=== PATIENT | female | born 1970 | race Caucasian/White ===

== ENCOUNTER 2017-09-02 20:44 | Emergency (ER) | payer MEDICAID, SELFPAY ==
[2017-09-02 20:46] VITALS: BP 168/92; PULSE 87; RESP 16; TEMP 36.8; O2SAT 97; BMI 62.6
--- NOTE | 2017-09-02 21:52 | ED.VISSUMM ---
- ER Visit Summary Date of Service: 09/02/17 Chief Complaint: Right-sided jaw pain History of Present Illness: The patient is a 47 F presents with right-sided jaw pain. Patient states she has had cold symptoms for the past 3-4 weeks. She states today she woke up and had a tender swelling in her right mid jaw. She denies fever. Denies ear pain. Denies sore throat or trouble swallowing. She went to urgent care and they sent her to the ED for further evaluation. Physical Examination: Vitals are stable. Patient is afebrile. Alert no acute distress. HEENT exam tender mobile lesion right mid jaw with no fluctuance, no surrounding erythema, TM is normal, no mastoid tenderness. Pharynx is normal, uvula is midline. Neck is supple. Lungs are clear and equal bilaterally. Heart is regular rate and rhythm. Extremities are unremarkable. Skin is warm and dry. Remainder of exam is unremarkable. Emergency Department Course and Treatment: Due to possibility of early abscess that is not amenable to drainage at this time, she is given a prescription for clindamycin. She is advised to follow-up with Dr. Cintron her primary care physician. Advised to watch for worsening signs of infection and return to ED if worsening complaints. Disposition: Discharge home Impression: Right jaw pain, URI This note was generated with [employer] dictation software. It may contain incorrect words, spelling, and punctuation that were not noted in review of the chart prior to signing ED Disposition - Plan for ED Patient: Chief Complaint: Dental Referrals: Xochitl Cintron MD [Primary Care Provider] -
--- NOTE | 2017-09-02 21:59 | DCINST.ED_ITS ---
ED Disposition - Plan for ED Patient: Chief Complaint: Dental Instructions: ED Abscess Abx Tx Only Ch Prescriptions: Guaifenesin/Pseudoephedrne HCl [Mucinex D ER 1,200-120 mg Tab] 1 each PO BID # 14 tab.er.12h Clindamycin [Cleocin] 300 mg PO 4X/DAY #80 capsule Referrals: Xochitl Cintron MD [Primary Care Provider] -
[2017-09-02] MEDS: Clindamycin HCl 150 MG Capsule 300 MG PO (22:00)
== END 2017-09-02 22:24 | disposition home or self-care (01) ==
LOC: ED 22:08
PROVIDERS: Emergency Provider Emergency Medicine; Family Provider Internal Medicine; PCP Internal Medicine
DX: R68.84 Jaw pain (principal); J06.9 Acute upper respiratory infection, unspecified
CPT/HCPCS: 99283

== ENCOUNTER 2018-09-28 19:39 | Emergency (ER) | payer MEDICAID, SELFPAY ==
[2018-09-28 19:40] VITALS: BP 170/84; PULSE 74; RESP 18; TEMP 36.6; O2SAT 99; BMI 62.7
--- NOTE | 2018-09-28 20:23 | ED.VISSUMM ---
- ER Visit Summary Date of Service: 09/28/18 Chief Complaint: Right earache History of Present Illness: The patient is a 48 F past medical history of migraines. States last 2 days she has had right earache. Denies any trauma. No fever. No sore throat. No change in her hearing. No trauma. Physical Examination: Well-appearing middle-aged morbidly obese female. Vital signs are stable and afebrile. HEENT exam unremarkable. TMs are normal bilaterally. No erythema. No swelling of the ear canals or fluid in the canal or wax. No perforation. No blood. Posterior pharynx normal. Eustachian tubes are nontender. Neck nontender no lymphadenopathy. Lungs clear to auscultation bilaterally. Heart regular rate and rhythm no murmur. Abdomen soft and nontender. Otherwise exam unremarkable. Test Results: None Emergency Department Course and Treatment: Motrin for pain. Currently there is no signs of infection. Treatment Plan: Motrin. Follow-up if not improving. Disposition: Discharge Impression: Right earache of uncertain etiology This note was generated with [employer] dictation software. It may contain incorrect words, spelling, and punctuation that were not noted in review of the chart prior to signing ED Disposition - Plan for ED Patient: Referrals: Xochitl Cintron MD [Primary Care Provider] -
--- NOTE | 2018-09-28 20:25 | ED.DEP ---
ED Disposition - Plan for ED Patient: Disposition: Home or Assisted Living Prescriptions: Ibuprofen [Motrin] 600 mg PO Q6H PRN PRN #20 tab PRN Reason: Pain Referrals: Xochitl Cintron MD [Primary Care Provider] - 1 Week if not improving Additional Instructions: Motrin for pain. Your right ear shows no signs of infection should improve the next several days.
[2018-09-28 20:46] VITALS: BP 160/75; PULSE 70; RESP 18; O2SAT 96
== END 2018-09-28 20:46 | disposition home or self-care (01) ==
LOC: ED 20:41
PROVIDERS: Emergency Provider Emergency Medicine; Family Provider Internal Medicine; PCP Internal Medicine
DX: H92.01 Otalgia, right ear (principal)
CPT/HCPCS: 99282

== ENCOUNTER 2018-10-28 20:04 | Emergency (ER) | payer MEDICAID, SELFPAY ==
[2018-10-28 20:04] VITALS: BP 150/98; PULSE 81; RESP 16; TEMP 36.8; O2SAT 98; BMI 62.2
[2018-10-28 21:29] VITALS: PULSE 70; RESP 15; O2SAT 99
[2018-10-28 21:39] VITALS: O2SAT 97
[2018-10-28] MEDS: 0.9% Normal Saline 1,000 ML 50 ML IV (21:51)
[2018-10-28] MEDS: 0.9% Normal Saline 1,000 ML 999 ML IV (22:30)
[2018-10-28] MEDS: DiphenhydrAMINE 50 MG/ML Syringe 25 MG IV (22:30)
[2018-10-28] MEDS: proMETHazine 25 MG/ML Syringe 6.25 MG IV (22:30)
[2018-10-28] MEDS: Ketorolac 30 MG/ML Syringe IV (22:31)
--- NOTE | 2018-10-28 23:17 | ED.VISSUMM ---
- ER Visit Summary Date of Service: 10/28/18 Chief Complaint: Migraine headache History of Present Illness: The patient is a 48 F who presents with migraine headache that began today. Patient states the pain began this morning when she woke up. Patient states the pain is worse over the occipital area. Patient states her pain is worse with light. Patient states this feels similar to prior migraine headaches. Patient admits to some nausea and vomiting. Patient also admits to some photophobia. Patient states she took Maxalt at home with minimal relief. Patient states she normally takes Phenergan and Benadryl at home but she did not have any of this tonight. Physical Examination: Vital signs are stable. Patient is afebrile. Patient is in no acute distress. Oral mucosa is pink and moist. Neck is supple. Trachea is midline. There is no JVD noted. Heart was regular rate and rhythm. Lungs are clear and equal bilateral. Abdomen is soft. Bowel sounds are normal. There is no tenderness. There is no guarding noted. Skin is warm dry. Cranial nerves II through XII are intact. There are no focal motor or sensory deficits noted. The remaining physical exam is within normal limits. Emergency Department Course and Treatment: Patient was given IV fluids, Phenergan, Toradol, and Benadryl. Patient felt better on reevaluation. Patient was instructed to rest in a dark quiet room. Patient was instructed to follow-up with her primary care physician in 5 to 7 days. Patient understood and was agreeable with the plan. All questions were answered. Disposition: Discharge home Impression: Migraine headache This note was generated with [employer] dictation software. It may contain incorrect words, spelling, and punctuation that were not noted in review of the chart prior to signing ED Disposition - Plan for ED Patient: Disposition: Home or Assisted Living Diagnosis: Migraine headache Instructions: ED Headache Migraine Referrals: Xochitl Cintron MD [Primary Care Provider] - 5-7 Days
--- NOTE | 2018-10-28 23:21 | ED.DCSUM_ITS ---
- ER Visit Summary Date of Service: 10/28/18 Chief Complaint: Migraine headache History of Present Illness: The patient is a 48 F who presents with migraine headache that began today. Patient states the pain began this morning when she woke up. Patient states the pain is worse over the occipital area. Patient states her pain is worse with light. Patient states this feels similar to prior migraine headaches. Patient admits to some nausea and vomiting. Patient also admits to some photophobia. Patient states she took Maxalt at home with minimal relief. Patient states she normally takes Phenergan and Benadryl at home but she did not have any of this tonight. Physical Examination: Vital signs are stable. Patient is afebrile. Patient is in no acute distress. Oral mucosa is pink and moist. Neck is supple. Trachea is midline. There is no JVD noted. Heart was regular rate and rhythm. Lungs are clear and equal bilateral. Abdomen is soft. Bowel sounds are normal. There is no tenderness. There is no guarding noted. Skin is warm dry. Cranial nerves II through XII are intact. There are no focal motor or sensory deficits noted. The remaining physical exam is within normal limits. Emergency Department Course and Treatment: Patient was given IV fluids, Phenergan, Toradol, and Benadryl. Patient felt better on reevaluation. Patient was instructed to rest in a dark quiet room. Patient was instructed to follow- up with her primary care physician in 5 to 7 days. Patient understood and was agreeable with the plan. All questions were answered. Disposition: Discharge home Impression: Migraine headache This note was generated with [employer] dictation software. It may contain incorrect words, spelling, and punctuation that were not noted in review of the chart prior to signing ED Disposition - Plan for ED Patient: Disposition: Home or Assisted Living Diagnosis: Migraine headache Instructions: ED Headache Migraine Referrals: Xochitl Cintron MD [Primary Care Provider] - 5-7 Days
== END 2018-10-28 23:33 | disposition home or self-care (01) ==
PROVIDERS: Emergency Provider Emergency Medicine; Family Provider Internal Medicine; PCP Internal Medicine
DX: G43.909 Migraine, unspecified, not intractable, without status migrainosus (principal)
CPT/HCPCS: 96361; 96374; 96375; 99284; J7030; A4216

== ENCOUNTER 2020-02-28 20:59 | Emergency (ER) | payer MEDICAID, SELFPAY ==
[2020-02-28 20:59] VITALS: BP 176/105; PULSE 76; RESP 20; TEMP 36.2; O2SAT 98; BMI 61.8; BMI 62.2
[2020-02-28] MEDS: proMETHazine 25 MG/ML Syringe 12.5 MG IV (21:26)
--- NOTE | 2020-02-28 21:32 | ED.VIS.GEN ---
History of Present Illness Chief Complaint: Headache Informant: Patient Onset: Today Narrative: Patient presents with migraine symptoms. Having oral photophobia nausea vomiting x1. Took her Maxalt with no relief. She did report trunk of car hitting her head at 3:30 PM today, however did not elicit any symptoms at that time. She states she thinks is aggravating her migraines and this is her same typical migraines. No fevers. No neck pain. No back pain. Allergic to Reglan, however states tolerated Phenergan and Compazine in the past and states Phenergan has usually helped her. No other complaints. Prior similar symptoms: Yes Past Medical History - Allergies and Home Meds Allergies/Adverse Reactions: Allergies metoclopramide HCl [From Reglan] Adverse Reaction (Verified 02/28/20 21:41) Other sertraline HCl [From Zoloft] Adverse Reaction (Verified 02/28/20 21:41) Other Primary Care Physician: Xochitl Cintron MD [Primary Care Provider] - Past Medical History: - - Migraine headaches Smoking Status: Never smoker Review of Systems General: Denies: Chills, Fever, Sweats Eyes: Denies: Visual changes - bilaterally, Diplopia ENT: Denies: Rhinorrhea, Sore throat Cardiovascular: Denies: Chest pain, Palpitations Respiratory: Denies: Dyspnea, Cough, Dyspnea on exertion Gastrointestinal: Denies: Abdominal pain, Nausea, Vomiting, Diarrhea, Melena, Hematochezia Genitourinary: Denies: Dysuria, Hematuria, Frequency Musculoskeletal: Denies: Back pain, Extremity Pain Skin: Denies: Rash, Wounds Neurological: Reports: Headache. Denies: Weakness, Numbness Physical Exam Vital Signs/Narrative: Vital Signs Temp Pulse Resp BP Pulse Ox 02/28/20 20:59 97.1 F L 76 20 H 176/105 H 98 Inital Vital Signs reviewed: Yes General: Well nourished, Well developed, No Acute Distress Head: Normocephalic, Atraumatic Eyes: Perrl, EOMI ENT: Moist mucous membranes, No rhinorrhea, TM's clear, - - No hemotympanum Neck: Supple, Nontender, - - No meningismus Cardiovascular: Regular rate, Regular rhythm, No murmurs Respiratory: No distress, CTA bilaterally, Chest nontender Abdomen: Soft, Nontender, Nondistended, Normal bowel sounds Back: Nontender, Normal Inspection Extremities: Nontender, No edema Skin: Normal color, No rash Neurological: Alert, Oriented x3, Cranial nerves II-XII grossly intact, Normal Strength, Normal Sensation Psychological: Normal affect, Normal Mood Diagnostic/Tx/Re-eval - Medical Decision Making Patient nontoxic, no meningismus. No focal neurological deficits. She did have a head injury, however she states this is likely the same of her migraines. Treated with fluids and Phenergan with improvement of symptoms. She will monitor symptoms and follow-up as an outpatient. ED Disposition - Plan for ED Patient: Disposition: Home or Assisted Living Diagnosis: Migraine headache Instructions: ED, Migraine (Classical) Referrals: Xochitl Cintron MD [Primary Care Provider] - 3-5 Days
[2020-02-28 22:30] VITALS: BP 145/71; PULSE 74; RESP 17; O2SAT 95
== END 2020-02-28 22:30 | disposition home or self-care (01) ==
PROVIDERS: Emergency Provider Emergency Medicine; PCP Internal Medicine
DX: G43.909 Migraine, unspecified, not intractable, without status migrainosus (principal)
CPT/HCPCS: 96374; 99283; J7030; A4216

== ENCOUNTER 2021-04-28 14:12 | Emergency (ER) | payer MEDICAID, SELFPAY ==
[2021-04-28 14:13] VITALS: BP 148/90; PULSE 75; RESP 17; TEMP 35.7; O2SAT 96; BMI 57.5
[2021-04-28 14:15] VITALS: BP 148/90; PULSE 75; RESP 17; TEMP 35.7; O2SAT 96
--- NOTE | 2021-04-28 14:16 | RAD_ITS ---
STUDY: X-RAY CHEST REASON FOR EXAM: Female, 50 years old. SOB . 10 day history of nausea and weakness. TECHNIQUE: Single AP portable view of the chest. COMPARISON: Comparison is made with prior study dated 12/03/2015. FINDINGS: Scattered calcified granulomas. No acute abnormality is seen. There is no demonstrated pleural abnormality. Normal size heart. Normal mediastinum and suma. Normal visualized pulmonary arteries. Normal visualized aortic arch and descending thoracic aorta. There are diffuse degenerative changes of the visualized thoracic spine. Normal visualized ribs, clavicles, and shoulders. There is no demonstrated abnormality of the visualized soft tissue structures of the upper abdomen. RAD/Chest 1 View IMPRESSION: No acute abnormality is seen. Electronically Signed: Davis Randolph MD at 14:44 EST , Service support ,
--- NOTE | 2021-04-28 15:41 | ED.VIS.DYS ---
HPI History of Present Illness Chief Complaint: Cough Informant: patient Narrative Narrative: Patient presents with about 9 days of cough. She states she gets wheezing but mostly in the morning. She has albuterol and a nebulizer at home but does not have the tubing for it. She did just get a prescription for albuterol inhaler from her physician. However they are waiting on insurance approval. Patient had an episode of nausea and vomiting here although that is better. She is not bringing up any sputum. She is not having chest pain. She has no hemoptysis. She feels like this is a viral illness and was mostly concerned about Covid. Nothing specifically makes it better or worse. Denies chronic medical conditions other than obesity and arthritis No routine chronic medications Allergy to Reglan and Zoloft No recent surgeries Non-smoker lives independently PFSH PFSH Home Medications ibuprofen 600 mg PO Q6H PRN PRN #20 tab 09/28/18 [Rx Last Taken Unknown] rizatriptan 10 mg PO X1 PRN 10/28/18 [History Last Taken 10/28/18] ondansetron 4 mg PO Q8H PRN #10 tab 04/28/21 [Rx Last Taken Unknown] Allergy/AdvReac Type Severity Reaction Status Date / Time metoclopramide HCl AdvReac Other Verified 02/28/20 21:41 [From Reglan] sertraline HCl [From Zoloft] AdvReac Other Verified 02/28/20 21:41 Social History Smoking Status: Never smoker ROS ROS ED Constitutional Constitutional ED: Denies chills, fever(s) or sweats Eyes Eyes: Denies blurry vision ENT ENT ED: Reports rhinorrhea; Denies sore throat Cardiovascular Cardiovascular: Denies chest pain or palpitations Respiratory/Chest Respiratory/Chest: Reports cough and other Details: See history of present illness. ; Denies dyspnea or sputum Gastrointestinal Gastrointestinal: Reports nausea, vomiting and other Details: Vomiting occurred for the first time here. ; Denies abdominal pain or diarrhea Genitourinary Genitourinary ED: Denies dysuria Musculoskeletal Musculoskeletal: Denies myalgias Integumentary Denies rash Neurologic Neurologic: Denies headache(s) or weakness Endocrine Endocrinology: Denies polydipsia or polyuria Hematologic/Lymphatic Hematologic/Lymphatic: Denies easy bleeding or easy bruising Allergic/Immunologic Allergic/Immunologic ED: Denies mouth swelling or urticaria EXAM Physical Exam Const Vital Signs: 04/28/21 14:13 04/28/21 14:15 Temperature 96.2 F L 96.2 F L Temperature Source Temporal Temporal Pulse Rate 75 75 Respiratory Rate 17 17 Blood Pressure 148/90 H 148/90 H Blood Pressure Mean 109 109 Pulse Ox 96 96 Oxygen Delivery Method Room Air Room Air Positive well nourished, well developed and obese General Appearance ED: well developed and NAD; Negative for pallor Nutritional Appearance: obese HEENT Reports moist mucous membranes HEENT Narrative: No uvular or tonsillar swelling. Voice is normal. Handle secretions normally. Eyes General Eye ED: Negative for pale conjunctiva or scleral icterus Neck no meningeal signs and no JVD Resp normal respiratory effort and clear to auscultation bilaterally Resp Narrative: At this time she has no wheeze. However she states she is also not wheezing now. She does have a little upper airway sounds. This is not stridor but is a little coarse. Auscultation: Negative for rales, rhonchi or wheezes Cardio regular rate and regular rhythm GI non-tender Palpation: soft Back/Spine normal to inspection Extremity General Extremety ED: Negative for tenderness Neuro Sensorium / Orientation: alert Psych mental status grossly normal Skin General Skin Exam: Negative for jaundice or pallor Lesions: no lesions Rashes: no rashes MDM MDM MDM Narrative Medical decision making narrative: Patient has about 9-day of URI symptoms. She had one episode of vomiting here. We will write her for something for nausea and vomiting. Evidently this is not an uncommon symptom for her. We will see if we can get her tubing for her nebulizer at home. I will give her a single time dose of Decadron here. Her x-ray shows no acute process. Her hernandez is negative. We discussed reasons that would prompt return. Radiography Diagnostic Testing: Clinical Impression(s) from Imaging Studies Chest X-Ray 04/28/21 14:16 IMPRESSION: No acute abnormality is seen. Electronically Signed: Davis Randolph MD at 14:44 EST , Service support , ADDENDUM: 04/28/21 1457 IMPRESSION: No acute abnormality is seen. Electronically Signed: Davis Randolph MD at 14:44 EST , Service support , Discharge Plan Triage Chief Complaint: Cough ED Provider: Don Felix Dx/Rx/DC Orders Clinical Impression: Viral URI, Nausea & vomiting Instructions: ED URI, Viral W/ Wheezing (Adult) Prescriptions: New ondansetron 4 mg tablet,disintegrating 4 mg PO Q8H PRN (Reason: nausea and vomiting) Qty: 10 RF: 0 No Action ibuprofen 600 MG tablet 600 mg PO Q6H PRN PRN (Reason: Pain) Qty: 20 RF: 0 rizatriptan 10 MG tablet,disintegrating 10 mg PO X1 PRN (Reason: Headache) RF: 0 Primary Care Provider: Xochitl Cintron Referrals: Xochitl Cintron MD [Primary Care Provider] - 3-5 Days if not improving Disposition Disposition: Home, Self Care
[2021-04-28 15:49] VITALS: BP 154/87; PULSE 65; RESP 16; TEMP 37; O2SAT 93
[2021-04-28 15:51] VITALS: O2SAT 95
[2021-04-28] MEDS: dexAMETHasone 4 MG Tablet 10 MG PO (15:53)
[2021-04-28] MEDS: Ondansetron ODT 4 MG Tablet PO (15:53)
== END 2021-04-28 16:03 | disposition home or self-care (01) ==
PROVIDERS: Emergency Provider Emergency Medicine; PCP Internal Medicine
DX: J06.9 Acute upper respiratory infection, unspecified (principal); R11.2 Nausea with vomiting, unspecified; E66.9 Obesity, unspecified
CPT/HCPCS: 71045; 87426; 99283

== ENCOUNTER → 2022-01-27 | Outpatient (CLI) | payer MEDICAID, SELFPAY ==
[2022-01-27 18:15] LABS: Red Blood Cells-Urine 0 SEEN /hpf (0-5)
[2022-01-27 18:26] LABS: Color, Urine Yellow (Yellow); Glucose, Dipstick Normal (Normal); Ketone-Dipstick Negative (Negative); Leukocyte Esterase-Dipstick 500 /ul (Negative); Nitrite-Dipstick Negative (Negative); Occult Blood-Urine Negative /ul (Negative); Protein-Dipstick 30 mg/dl (Negative); Urine Clarity Clear (Clear); Urine Urobilinogen 1 mg/dl (Normal)
[2022-01-27 18:27] LABS: Urine Bilirubin Dipstick 1 mg/dL (Negative)
[2022-01-27 18:36] LABS: Bacteria 3+ /hpf (None Seen); Mucous, Urine 3+ /hpf (<or=2+); Squamous Epithelial Cells - UA 10-25 SEEN /hpf (5-10); White Blood Cells 10-25 SEEN /hpf (0-5)
[2022-01-27 18:37] LABS: Hyaline Cast 5-10 SEEN /lpf (0-5)
== END | disposition home or self-care (01) ==
PROVIDERS: PCP Internal Medicine; Visit Provider Physician Assistant Surgical
DX: R35.0 Frequency of micturition (principal)
CPT/HCPCS: 81001; 87086; 87088

== ENCOUNTER 2022-05-10 07:54 | Emergency (ER) | payer MEDICAID, SELFPAY ==
[2022-05-10 07:56] VITALS: BP 183/90; PULSE 73; RESP 16; TEMP 36.1; O2SAT 95; BMI 63.2
--- NOTE | 2022-05-10 08:08 | EDS_ITS ---
HPI History of Present Illness Chief Complaint: Headache Informant: patient Onset/Context/Timing Onset: Yesterday Context: Gradual Onset Timing: Continuous Quality: Sharp Location: Behind her eyes Worsened by: Certain movements Relieved by: Nothing Narrative Narrative: Patient presents with headache, nausea, and vomiting that became worse yesterday. Patient states that it got worse throughout the night. Patient states her pain is sharp. Patient states it is behind her eyes. Patient also noted some wheezing in her chest. Patient states her headache is worse with certain movements. Patient states nothing makes her headache any better. Patient admits to nausea and vomiting but denies any hematemesis or coffee- ground emesis. Patient also admits to a cough and shortness of breath. Patient states she was recently seen at an urgent care and was negative for COVID and influenza. [facility] Medical History Migraines Home Medications NK 05/10/22 [History Last Taken Unknown] Allergy/AdvReac Type Severity Reaction Status Date / Time metoclopramide HCl AdvReac Other Verified 05/10/22 07:55 [From Reglan] sertraline HCl [From Zoloft] AdvReac Other Verified 05/10/22 07:55 Social History Smoking Status: Never smoker ROS ROS ED Constitutional Constitutional ED: Denies chills or fever(s) Eyes Eyes: Denies blurry vision or change in vision ENT ENT ED: Denies rhinorrhea or sore throat Cardiovascular Cardiovascular: Denies chest pain or palpitations Respiratory/Chest Respiratory/Chest: Reports cough and dyspnea Gastrointestinal Gastrointestinal: Reports nausea and vomiting Genitourinary Genitourinary ED: Denies dysuria or hematuria Musculoskeletal Musculoskeletal: Reports neck pain; Denies back pain Integumentary Denies abscess or rash Neurologic Neurologic: Reports headache(s); Denies weakness Allergic/Immunologic Allergic/Immunologic ED: Denies mouth swelling or urticaria EXAM Physical Exam Const Vital Signs: 05/10/22 07:56 05/10/22 08:05 05/10/22 08:30 Temperature 96.9 F L Temperature Source Temporal Pulse Rate 73 71 Respiratory Rate 16 16 Respiratory Effort Normal Non-Labored Respiratory Pattern Normal Normal Blood Pressure 183/90 H Blood Pressure Mean 121 Pulse Ox 95 Oxygen Delivery Method Room Air Positive well nourished, well developed and obese General Appearance ED: well developed and NAD Nutritional Appearance: obese HEENT Reports moist mucous membranes normocephalic and atraumatic Eyes PERRL and EOMs intact bilaterally Neck supple and no JVD Resp normal respiratory effort Effort and Inspection: Negative for respiratory distress Auscultation: diminished lung sounds diffuse Cardio regular rate, regular rhythm and no murmurs GI normal to inspection, nondistended, normoactive bowel sounds, soft to palpation, non-tender and non-distended Extremity normal to inspection General Extremety ED: Negative for edema or tenderness General Extremity: Negative for edema Neuro oriented x3, CN's II-XII intact bilaterally and no sensory deficits noted Sensorium / Orientation: awake and alert Motor Exam: strength 5/5 throughout Psych mental status grossly normal MDM MDM MDM Narrative Medical decision making narrative: Patient was given a DuoNeb aerosol here. Patient was given IV fluids, Phenerg an, and Toradol. CBC was within normal limits. Comprehensive metabolic profile was essentially within normal limits. PA and lateral chest x-ray was obtained. There are 2 views. On my interpretation, lung landaverde are clear. There is normal cardiac silhouette. Bony thorax is normal. There is no acute process noted. Radiologist also interpreted the x-ray and agrees. Patient is feeling better on reevaluation. Patient was instructed to rest in a dark quiet room. Patient was instructed to drink plenty of fluids. Patient was instructed to follow-up with her primary care physician in 5 to 7 days. Patient understood and was agreeable with the plan. All questions were answered. Lab Data Attestation: I reviewed the patient's lab results. Labs: Laboratory Results - last 24 hr 05/10/22 05/10/22 08:10 08:10 WBC 9.9 RBC 4.74 Hgb 13.1 Hct 40.7 MCV 85.9 MCH 27.6 MCHC 32.2 RDW Std Deviation 39.4 RDW Coeff of Brad 12.6 Plt Count 307 MPV 10.5 Immature Gran % (Auto) 0.500 Neut % (Auto) 62.0 Lymph % (Auto) 30.1 [place]orne % (Auto) 6.0 Eos % (Auto) 1.0 Baso % (Auto) 0.4 Absolute Neuts (auto) 6.1 Absolute Lymphs (auto) 2.98 Nucleated RBC % 0 Sodium 140 Potassium 3.4 L Chloride 108 H Carbon Dioxide 26.0 Anion Gap 6 BUN 10 Creatinine 0.75 Estim Creat Clear Calc 194.43 Est GFR (MDRD) Af Amer 104 Est GFR (MDRD) Non-Af 86 BUN/Creatinine Ratio 13.4 Glucose 157 H Calcium 9.0 Total Bilirubin 1.30 H AST 31 ALT 45 Alkaline Phosphatase 80 Total Protein 7.4 Albumin 3.1 L Globulin 4.3 H Albumin/Globulin Ratio 0.7 L Radiography Chest X-Ray - ED: 2 View, Read by ED Physician, Read by Radiologist, Normal and No Acute Disease Diagnostic Testing: Clinical Impression(s) from Imaging Studies Chest X-Ray 05/10/22 08:45 IMPRESSION: No acute findings in the chest and no significant interval change when compared to 04/28/2021. Electronically Signed: Abdoulaye Gilliland MD at 9:02 EST Reading Location ID and State: [address] [place] [address] , Service support , Discharge Plan Triage Chief Complaint: Headache ED Provider: Lasha Duran Dx/Rx/DC Orders Clinical Impression: Viral illness, Morbid obesity with BMI of 60.0-69.9, adult Instructions: ED Viral Syndrome (Adult) Prescriptions: No Action NK Primary Care Provider: Xochitl Cintron Referrals: Xochitl Cintron MD [Primary Care Provider] - 3-5 Days Disposition Disposition: Home, Self Care
[2022-05-10] MEDS: Ipratropium/Albuterol Sulfate 3 ML AMPUL.NEB INHALATION (08:17)
[2022-05-10] MEDS: Ketorolac 30 MG/ML Syringe IV (08:23)
[2022-05-10] MEDS: 0.9% Normal Saline 1,000 ML 1000 ML IV (08:23)
[2022-05-10] MEDS: proMETHazine 25 MG/ML Syringe 6.25 MG IM (08:23)
[2022-05-10 08:30] VITALS: PULSE 71; RESP 16
[2022-05-10 08:32] LABS: Absolute Lymphocyte Count 2.98 X10^3/uL (0.83-4.51); Absolute Neutrophil Count 6.1 X10^3/uL (2.0-7.7); Basophil# 0.04 X10^3/uL; Basophil% 0.4 % (0-1); Hematocrit 40.7 % (37-47); Hemoglobin 13.1 g/dL (12.0-15.0); Lymphocyte # 2.98 X10^3/ul (0.83-4.51); Lymphocyte % 30.1 % (19-41); Mean Corp Hgb Conc 32.2 g/dL (32-36); Mean Corpuscular Hgb 27.6 pg (27.0-32.0); Mean Corpuscular Volume 85.9 fL (81-99); Mean Platelet Vol. 10.5 fl (6.2-12.0); Monocyte# 0.59 X10^3/uL; NRBC Flagged by Analyzer 0 % (0-5); Neutrophil # 6.14 X10^3/uL (2.7-7.7); Platelet Count 307 K/mm3 (150-450); RBC Distribution Width CV 12.6 % (11.6-14.6); RBC Distribution Width SD 39.4 fl (35.1-43.9); Red Blood Count 4.74 M/mm3 (4.2-5.4); White Blood Count 9.9 K/mm3 (4.4-11.0)
--- NOTE | 2022-05-10 08:45 | RAD_ITS ---
EXAM: XR CHEST, 2 VIEWS CLINICAL INDICATION: Cough TECHNIQUE: Frontal and lateral views of the chest. This report was created using [employer] report generation technology. COMPARISON: 04/28/2021. FINDINGS: LUNGS AND PLEURAL SPACES: Unremarkable. No consolidation or edema. No pneumothorax. No effusion. HEART: Mild cardiomegaly. MEDIASTINUM: Central airways and mediastinal contour are unremarkable. BONES/JOINTS: Unremarkable. SOFT TISSUES: Unremarkable. RAD/Chest PA and Lateral IMPRESSION: No acute findings in the chest and no significant interval change when compared to 04/28/2021. Electronically Signed: Abdoulaye Gilliland MD at 9:02 EST ,
[2022-05-10 08:50] LABS: ALB/GLOB Ratio 0.7 RATIO (0.9-2.4); AST(SGOT) 31 U/L (15-37); Alanine Aminotransfer ALT/SGPT 45 U/L (13-56); Albumin, Serum 3.1 g/dL (3.2-5.0); Alkaline Phosphatase 80 U/L (45-117); Anion Gap 6 (5-15); BUN 10 mg/dL (7-18); BUN/Creat Ratio 13.4 RATIO (10-20); Chloride 108 mmol/L (98-107); Creatinine, Serum 0.75 mg/dL (0.55-1.02); EST Glomerular Filtration Rate 86 mL/min (>60); Est Glom Filt Rate - Afr Amer 104 mL/min (>60); Estimated Creatinine Clearance 194.43 ml/min; Globulin 4.3 g/dL (2.2-4.2); Glucose 157 mg/dL (74-106); Potassium 3.4 mmol/L (3.5-5.1); Protein, Total 7.4 g/dL (6.4-8.2); Sodium Level 140 mmol/L (136-145)
[2022-05-10 11:03] VITALS: BP 124/88; PULSE 72; RESP 16; O2SAT 98
== END 2022-05-10 11:04 | disposition home or self-care (01) ==
PROVIDERS: Emergency Provider Emergency Medicine; PCP Internal Medicine; Visit Provider Emergency Medicine
DX: B34.9 Viral infection, unspecified (principal); E66.01 Morbid (severe) obesity due to excess calories; Z68.44 Body mass index [BMI] 60.0-69.9, adult; R11.2 Nausea with vomiting, unspecified; R06.02 Shortness of breath; Z20.822 Contact with and (suspected) exposure to COVID-19
CPT/HCPCS: G0463; 71046; 80053; 85025; 87428; 94640; 96361; 96372; 96374; 99251; 99284; J7030; A4216

== ENCOUNTER 2024-06-04 10:12 | Emergency (ER) | payer MEDICAID, SELFPAY ==
[2024-06-04 10:13] VITALS: BP 195/96; PULSE 73; RESP 18; TEMP 36.6; O2SAT 97
--- NOTE | 2024-06-04 11:23 | EDS_ITS ---
HPI <PADMINI Sheets - Last Filed: 06/04/24 13:21> History of Present Illness Chief Complaint: General Illness Narrative Narrative: 53-year-old female status over the last several runny nose, sore throat, headache similar to her history of migraines, nausea and vomiting, and a painful lump under her right ear. She did not have her Phenergan prescription so she was unable to keep down Maxalt which she takes for migraines. She denies chest pain, shortness of breath, abdominal pain or diarrhea. No focal motor or sensory changes. PFSH <PADMINI Sheets - Last Filed: 06/04/24 13:21> [facility] Medical History Migraines Home Medications ?Medication ?Instructions ?Recorded ?Last Taken ?Type amoxicillin 875 mg-potassium 1 tab PO BID 7 days #14 tabs 06/04/24 Unknown Rx clavulanate 125 mg tablet promethazine 25 mg tablet 25 mg PO TID PRN nausea and 06/04/24 Unknown Rx vomiting 5 days #15 tabs Allergy/AdvReac Type Severity Reaction Status Date / Time metoclopramide HCl (From AdvReac Other Verified 06/04/24 10:15 Reglan) sertraline HCl (From Zoloft) AdvReac Other Verified 06/04/24 10:15 Social History Smoking Status: Never smoker ROS <PADMINI Sheets - Last Filed: 06/04/24 13:21> ROS ED ROS Narrative Constitutional: Negative for fever, chills. CVS: Negative for chest pain Respiratory: Negative for shortness of breath, cough GI: Positive for nausea, vomiting. Neuro: Positive for headache. EXAM <PADMINI Sheets - Last Filed: 06/04/24 13:21> Physical Exam Narrative Exam Narrative: CONST: Patient sitting in no acute distress. EYES: Normal inspection. ENT: Moist mucous membranes and normal posterior oropharynx, nares clear, normal TMs bilaterally. Swelling anteroinferior to right ear likely enlarged parotid gland is tender to touch with no overlying edema, she has similar lump on the left side so this may be her normal anatomy. NECK: Normal inspection. No meningismus. RESP: No respiratory distress, CTAB. CVS: Regular rate and rhythm, no murmur, no gallop. ABD: Soft and nontender, no guarding or rebound, nondistended. SKIN: Color normal, no rash, warm, dry, intact. EXTREMITIES: Normal appearance, no pedal edema. NEURO: Alert and answering questions appropriately. PSYCH: Normal affect. Const Vital Signs: 06/04/24 10:13 06/04/24 10:28 06/04/24 12:12 Temperature 97.8 F Temperature Source Oral Pulse Rate 73 89 Respiratory Rate 18 16 Respiratory Effort Normal Non-Labored Blood Pressure 195/96 H Blood Pressure Mean 129 Pulse Ox 97 99 Oxygen Delivery Method Room Air 06/04/24 12:48 Temperature 98.9 F Temperature Source Pulse Rate 89 Respiratory Rate 16 Respiratory Effort Blood Pressure 138/99 H Blood Pressure Mean 112 Pulse Ox 99 Oxygen Delivery Method <Abdoulaye Morales MD - Last Filed: 06/04/24 13:43> Physical Exam Const Vital Signs: 06/04/24 10:13 06/04/24 10:28 06/04/24 12:12 Temperature 97.8 F Temperature Source Oral Pulse Rate 73 89 Respiratory Rate 18 16 Respiratory Effort Normal Non-Labored Blood Pressure 195/96 H Blood Pressure Mean 129 Pulse Ox 97 99 Oxygen Delivery Method Room Air 06/04/24 12:48 Temperature 98.9 F Temperature Source Pulse Rate 89 Respiratory Rate 16 Respiratory Effort Blood Pressure 138/99 H Blood Pressure Mean 112 Pulse Ox 99 Oxygen Delivery Method [facility] <PADMINI Sheets - Last Filed: 06/04/24 13:21> [facility] Narrative Medical decision making narrative: Differential: Viral URI, parotitis, otitis media, mastoiditis 53-year-old female was evaluated for multiple complaints. She has a painful lump under her right ear/upper neck that is consistent with parotitis. There is no overlying erythema. She has no signs of otitis media, externa, or mastoiditis. Airways patent. She also complains of an intractable migraine and could not keep her Maxalt down because she was out of her Phenergan prescription. Her migraine feels similar to previous. No neurological symptoms. She reports normal CT brain imaging in the past. She is awake alert in no distress with nonfocal neurological exam so I do not think imaging is indicated. She was treated with Toradol, Zofran, and subcu sumatriptan with improvement. Viral swab for COVID/flu/RSV is negative. She was given Augmentin for parotitis and advised to follow-up with her ENT doctor Herlinda. She was discharged in stable condition. <Abdoulaye Morales MD - Last Filed: 06/04/24 13:43> [facility] Treatment and Re-Evaluation :: Dr. Morales: I have personally performed a face to face assessment of the patient and have reviewed the DIONNA Note. I performed a substantive portion of the visit including all aspects of the following. My fong findings include: History is right sided jaw and neck pain/parotid area. Causing migraine headache. Positive dry mouth. Exam is afebrile. Vital signs noted. Nontoxic-appearing. Positive swelling over right parotid gland, no erythema. Neck soft and supple without meningismus. Medical Decision Making: Differential diagnosis includes parotitis versus parotid duct stone versus parotid gland abscess. She does have bilateral swelling but right is more tender and more swollen. Treatment for headache with Toradol. Antibiotics. Sialagogues. Follow-up with otolaryngology. Discharge. Other additions or changes: [None] Discharge Plan Triage Chief Complaint: General Illness ED Midlevel Provider: Elli Vazquez ED Provider: Abdoulaye Morales Dx/Rx/DC Orders Clinical Impression: Migraine, Acute parotitis Instructions: ED Salivary Gland Infection Prescriptions: New amoxicillin-pot clavulanate 875-125 mg tablet 1 tab PO BID 7 Days Qty: 14 0RF promethazine 25 mg tablet 25 mg PO TID PRN (Reason: nausea and vomiting) 5 Days Qty: 15 0RF Primary Care Provider: Xochitl Cintron Referrals: Hiram Pate MD [Med Staff - Courtesy Staff] - Xochitl Cintron MD [Primary Care Provider] - Activity Restrictions/Additional Instructions: Take your migraine medication as needed. Follow up with ENT for parotitis. This is your swollen salivary gland. Take the antibiotics as directed. Print Language: Slovak Disposition Disposition: Home, Self Care Discharge Date/Time: 06/04/24 12:53
[2024-06-04] MEDS: 0.9% Normal Saline (1000mL) 1,000 ML 999 ML IV (11:43)
[2024-06-04] MEDS: Ketorolac 30 MG/ML Syringe IV (11:43)
[2024-06-04] MEDS: SUMAtriptan 6 MG/0.5 ML Vial SC (11:43)
[2024-06-04] MEDS: Ondansetron 4 MG/2 ML Vial IV (11:43)
[2024-06-04 12:12] VITALS: PULSE 89; RESP 16; O2SAT 99
[2024-06-04] MEDS: Amox/Clavulanate 875 MG Tablet PO (12:43)
[2024-06-04 12:48] VITALS: BP 138/99; PULSE 89; RESP 16; TEMP 37.2; O2SAT 99
== END 2024-06-04 12:53 | disposition home or self-care (01) ==
PROVIDERS: Emergency Provider Emergency Medicine; PCP Internal Medicine; Visit Provider Emergency Medicine
DX: K11.21 Acute sialoadenitis (principal); G43.919 Migraine, unspecified, intractable, without status migrainosus
CPT/HCPCS: 87631; 96361; 96372; 96374; 96375; 99283; A4216; J2405; J3030

== ENCOUNTER 2025-04-20 15:59 | Emergency (ER) | payer MEDICAID, SELFPAY ==
[2025-04-20 16:00] VITALS: BP 186/78; PULSE 79; RESP 18; TEMP 36.1; O2SAT 96; BMI 64.1
[2025-04-20 16:20] VITALS: BP 186/78; PULSE 79; RESP 18; TEMP 36.1; O2SAT 96
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
--- OUTSIDE RECORDS SUMMARY | 2025-04-20 16:30 | XMS RPT_ITS | CCD ---
Author Organization [facility] Care Team Providers Care Chinese Teacher Name Role Phone Shauna Bello MD Primary Care Provider Dr. Shauna Bello Primary Care Provider Dr. Shauna Bello Referring Provider PADMINI Buitrago Attending Provider Shauna Bello MD Primary Care Provider Dr. Shauna Bello Primary Care Provider Dr. Shauna Bello Referring Provider PADMINI Buitrago Attending Provider ACE TORRE, DR VILLATORO Primary Care Physician SAIMA DYKES Attending Unavailable ACE MARIEE, DR. VILLATORO Primary Care Unavailab Shauna Lorenzo MD Primary Care Provider ERIN TORRE, DR ZION Inman Attending UnavailDR SHAUNA Trejo MD Primary Care Unavailable Yeison NANNY BABYSITTER.FOOD CART ATTENDANT, Rhiannon Unavailable Catrachita NANNY BABYSITTER.EXTRACT WRINGER, Sundeep Unavailable Abdoulaye Morales Attending Unavailable Shauna Bello Primary Care Unavailable Catrachita NANNY BABYSITTER.EXTRACT WRINGER, Sundeep Unavailable Catrachita NANNY BABYSITTER.EXTRACT WRINGER, Sundeep Unavailable [place] NANNY BABYSITTER.FOOD CART ATTENDANT, Rhiannon Unavailable CATRACHITA SUNDEEP Referring Unavailable SHAUNA BELLO Primary Care Unavailable SHAUNA BELLO Attending Unavailable SHAUNA BELLO Referring Unavailable TALAMPAS, SHAUNA D Primary Care Unavailable TALAMPAS, SHAUNA D Referring Unavailable TALAMPAS, SHAUNA D Primary Care Unavailable SUNDEEP DOMÍNGUEZ Attending Unavailable SELF Referring Unavailable TALAMPAS, SHAUNA D Primary Care Unavailable TALAMPAS, SHAUNA D Primary Care Unavailable ILAN TRINH Attending Unavailable TALAMPAS, SHAUNA D Attending Unavailable SELF Referring Unavailable TALAMPAS, SHAUNA D Primary Care Unavailable TALAMPAS, SHAUNA D Referring Unavailable TALAMPAS, SHAUNA D Primary Care Unavailable TALAMPAS, SHAUNA D Referring Unavailable TALAMPAS, SHAUNA D Primary Care Unavailable CATRACHITA SUNDEEP Attending Unavailable TALAMPAS, SHAUNA D Primary Care Unavailable CATRACHITA, SUNDEEP Referring Unavailable TALAMPAS, SHAUNA D Primary Care Unavailable Allergies Allergy Classification Reported Allergen(s) Allergy Type Date of Onset Reaction(s) Facility (20 sources) Metoclopramide; Translations: [METOCLOPRAMIDE HCL] Drug Allergy [address] [facility] Work Phone: (20 sources) Sertraline; Translations: [SERTRALINE HCL] Drug Allergy 8 Intolerance, Diarrhea [facility] Work Phone: (2 sources) Metoclopramide; Translations: [metoclopramide] Drug Allergy [facility] (2 sources) Sertraline; Translations: [sertraline] Drug Allergy [facility] (1 source) Metoclopramide Drug Allergy 5 [facility] (1 source) Sertraline Drug Allergy 5 [facility] Medications Current Medications Medication Drug Class(es) Dates Sig (Normalized) Sig (Original) acyclovir 50 mg/ml topical cream (12 sources) Herpesvirus Nucleoside Analog DNA Polymerase Inhibitor, Herpes Simplex Virus Nucleoside Analog DNA Polymerase Inhibitor, Herpes Zoster Virus Nucleoside Analog DNA Polymerase Inhibitor Start: 09-04-2024 acyclovir (ZOVIRAX) 5 % crea Indications: Cold sore Apply to affected area five times a day. 5 g 09/04/2024 Active Start: 09-04-2024 End: 09-11-2024 take 1 tablet by mouth three times daily acyclovir (ZOVIRAX) 400 mg tablet Indications: Cold sore Take 1 tablet by mouth three times a day for 7 days. 21 tablet 09/04/2024 09/11/2024 Active Start: 08-07-2024 End: 08-14-2024 take 1 tablet by mouth three times daily acyclovir (ZOVIRAX) 400 mg tablet Indications: Cold sore Take 1 tablet by mouth three times a day for 7 days. 21 tablet 08/07/2024 08/14/2024 Active Start: 05-11-2024 End: 09-02-2024 acyclovir (ZOVIRAX) 5 % crea Indications: Cold sore Apply to affected area five times a day. 5 g 08/07/2024 09/02/2024 Discontinued [id number] 200 actuat albuterol 0.09 mg/actuat metered dose inhaler (20 sources) beta2-Adrenergic Agonist Start: 04-26-2021 End: 04-12-2024 take 2 puff(s) by inhalation every four hours as needed for wheezing albuterol HFA (VENTOLIN HFA) 90 mcg/actuation inhaler Indications: Chronic bronchitis, unspecified chronic bronchitis type (HCC) Inhale 2 Puffs as instructed every 4 hours as needed for wheezing/shortness of breath. 18 g 04/12/2024 Active Start: 06-26-2019 End: 04-24-2021 take 2 puff(s) by inhalation every four hours as needed for wheezing albuterol HFA (VENTOLIN HFA) 90 mcg/actuation inhaler Indications: Wheezing Inhale 2 Puffs as instructed every 4 hours as needed for Wheezing/Shortness of Breath. 1 Inhaler 3 06/26/2019 04/24/2021 Discontinued Start: 01-02-2019 End: 04-12-2024 albuterol (PROVENTIL) 2.5 mg /3 mL (0.083 %) nebulizer solution Indications: Wheezing Use 3 mL via nebulizer one time only for 1 dose. Use over 5-15minutes. 75 mL 04/24/2021 04/12/2024 Discontinued Comment on above: Use 3 mL via nebuliz er one time only for 1 dose. Use over 5-15minutes. Inhale 2 Puffs as in structed every 4 hours as needed for wheezing/shortness of breath. atenolol 50 mg oral tablet (19 sources) beta-Adrenergic Ruth Start: 03-17-202 5 take 1 tablet by mouth once daily atenolol (TENORMIN) 50 mg tablet Indications: Primary hypertension Take 1 tablet by mouth once daily. 90 tablet 3 08/07/2024 Active Start: 08-11-2022 End: 08-07-2024 take 1 tablet by mouth once daily atenolol (TENORMIN) 25 mg tablet Indications: Primary hypertension Take 1 tablet by mouth once daily. 30 tablet 2 04/12/2024 08/07/2024 Discontinued Comment on above: Take 1 tablet by [facility] once daily. Blood Pressure Monitor (6 sources) Start: 5 Blood Pressure Monitor Indications: Primary hypertension 1 Each two times a day as needed (for BP management). 1 Kit 08/07/2024 Active cholecalciferol 0.125 mg oral capsule (14 sources) Vitamin D Start: 4 take 1 capsule by mouth once daily Cholecalciferol, Vitamin D3, 125 mcg (5,000 unit) cap Take 1 capsule by mouth once daily. 90 capsule 2 04/14/2024 Active Start: 05-20-2018 End: 05-03-2022 take 1 capsule by mouth every week cholecalciferol, Vitamin D3, (VITAMIN D3) 50,000 unit cap capsule Indications: Vitamin D deficiency Take 1 capsule by mouth once each week. 4 capsule 5 05/20/2018 05/03/2022 Discontinued (Discontinued by Patient) Comment on above: Take 1 capsule by mo [facility] once each week. clindamycin 300 mg oral capsule (1 source) Lincosamide Antibacterial Start: 4 End: 4 Cleocin HCl 300 mg oral capsule Dose : 300 mg = 1 cap(s), Oral, q8h, # 30 cap(s), 0 Refill(s), 148.5 Start Date: 02/17/24 Stop Date: 02/27/24 Status: Ordered doxycycline monohydrate 100 mg oral tablet (1 source) Tetracycline-class Drug Start: 3 End: 3 doxycycline monohydrate 100 mg oral tablet Dose : 100 mg = 1 tab(s), Oral, BID, X 7 day(s), # 14 tab(s), 0 Refill(s), 06/20/22 14:08:00 EST, 136.4 Start Date: 06/13/22 Stop Date: 06/20/22 Status: Ordered ibuprofen 600 mg oral tablet (19 sources) Nonsteroidal Anti-inflammatory Drug Start: take 1 tablet by mouth every eight hours as needed for pain ibuprofen (MOTRIN) 600 mg tablet Indications: Migraine without aura and without status migrainosus, not intractable Take 1 tablet by mouth every 8 hours as needed for pain (for migraines). 90 tablet 1 04/12/2024 Active Start: 07-26-2023 End: 08-09-2023 take 1 tablet by mouth every six hours as needed for pain and pain ibuprofen (MOTRIN) 600 mg tablet Indications: Pain Take 1 tablet by mouth every 6 hours as needed for pain for up to 14 days. 56 tablet 0 07/26/2023 08/09/2023 Active Start: 04-24-2021 End: 05-03-2022 take 1 tablet by mouth every eight hours as needed for pain ibuprofen (MOTRIN) 800 mg tablet Indications: Acute right ankle pain Take 1 tablet by mouth every 8 hours as needed for pain (for headaches). Take with food. Do not take in addition to Naproxen or other NSAID 60 tablet 0 04/24/2021 05/03/2022 Discontinued (Discontinued by Patient) Start: 10-06-2019 End: 03-06-2021 take 1 tablet by mouth every eight hours as needed for pain ibuprofen (MOTRIN) 800 mg tablet Indications: Acute right ankle pain Take 1 tablet by mouth every 8 hours as needed for Pain (for headaches). Take with food. Do not take in addition to Naproxen 60 tablet 10/06/2019 03/06/2021 Discontinued (Changing Therapy/Dosage Form) Start: 09-28-2018 End: 01-27-2022 take 600 mg by mouth every six hours as needed Ibuprofen Discontinued 600 MG PO EVERY 6 HOURS NEEDED September 27, 2018 11:00pm January 27, 2022 2:47pm Comment on above: Take 1 tablet by catracho th every 8 hours as needed for pain (for headaches). Take with food. Do not take in addition to Naproxen or other NSAID Take 1 tablet by catracho th every 6 hours as needed for pain for up to 14 days. LORazepam 0.5 mg oral tablet (2 sources) Benzodiazepine Start: End: take 1 tablet by mouth once daily as needed for anxiety LORazepam (ATIVAN) 0.5 mg Indications: Panic disorder without agoraphobia Take 1 tablet by mouth once daily as needed (anxiety) for up to 7 days. 7 tablet 08/07/2024 08/14/2024 Active Start: 08-11-2022 End: 09-10-2022 take 1 tablet by mouth once daily as needed for anxiety LORazepam (ATIVAN) 0.5 mg Indications: Panic disorder without agoraphobia Take 1 tablet by mouth once daily as needed (anxiety) for up to 30 days. 30 tablet 0 08/11/2022 09/10/2022 Active Comment on above: Take 1 tablet by catracho once daily as needed (anxiety) for up to 30 days. meloxicam 7.5 mg oral tablet (14 sources) Nonsteroidal Anti-inflammatory Drug Start: 04-12-2024 take 1 tablet by mouth once daily as needed for pain meloxicam (MOBIC) 7.5 mg tablet Take 1 tablet by mouth once daily as needed for pain (for knee pain). With food. Do not take on days you take the ibuprofen. 30 tablet 1 04/12/2024 Active Start: 03-06-2021 End: 05-03-2022 take 1 tablet by mouth once daily meloxicam (MOBIC) 15 mg tablet Indications: Acute pain of left knee , Post-traumatic osteoarthritis of left knee Take 1 tablet by mouth once daily. 30 tablet 1 03/06/2021 05/03/2022 Discontinued (Discontinued by Patient) Comment on above: Take 1 tablet by catracho once daily. nitrofurantoin, macrocrystals 25 mg / nitrofurantoin, monohydrate 75 mg oral capsule (3 sources) Nitrofuran Antibacterial Start: 11-16-19 take 1 capsule by mouth twice daily nitrofurantoin monohydrate and macrocrystal (MACROBID) 100 mg capsule Indications: Acute UTI Take 1 capsule by mouth two times a day. 14 capsule 11/15/2024 Active Start: 01-27-2022 End: 02-03-2022 take 1 capsule by mouth every twelve hours at mealtime Nitrofurantoin Monohyd/M-Cryst Discontinued 1 CAP PO Q12H 14 January 26, 2022 11:00pm February 02, 2022 11:04pm administer with a meal/food; swallow whole; do not open, crush, dissolve , or chew Valinda (Nk) (1 source) Start: 05-10-2022 Valinda (Nk) A ctive May 10, 2022 12:00am phenazopyridine hydrochloride 200 mg oral tablet (4 sources) Start: 11-13-2024 take 1 tablet by mouth three times daily before mealtime phenazopyridine (PYRIDIUM) 200 mg tablet Indications: Acute UTI Take 1 tablet by mouth three times a day before meals. 6 tablet 11/13/2024 Active Start: 01-27-2022 take 1 tablet by catracho th three times daily at mealtime Phenazopyridine (Pyridium) 100 mg tablet Active 100 MG PO THREE TIMES A DAY January 27, 2022 12:00am administer with a full glass of water after each meal rizatriptan 10 mg disintegrating oral tablet (20 sources) Serotonin-1b and Serotonin-1d Receptor Agonist Start: 08-11-2022 End: 04-12-2024 take 1 tablet by mouth every two hours rizatriptan (MAXALT-ENGINEERING DOCUMENTATION SPECIALIST) 10 mg disintegrating tablet Indications: Migraine without aura and without status migrainosus, not intractable Take 1 tablet (10 mg) by mouth as directed. May repeat in 2 hours if needed 18 tablet 5 04/12/2024 Active Start: 10-06-2019 End: 05-03-2022 take 1 tablet by mouth every two hours rizatriptan (MAXALT-ENGINEERING DOCUMENTATION SPECIALIST) 10 mg disintegrating tablet Indications: Migraine without aura and without status migrainosus, not intractable Take 1 tablet by mouth as directed. May repeat in 2 hours if needed 18 tablet 10/06/2019 05/03/2022 Discontinued (Discontinued by Patient) Start: 10-28-2018 End: 01-27-2022 take 10 mg by mouth once Rizatriptan Discontinued 10 MG PO ONE TIME October 27, 2018 11:00pm January 27, 2022 2:47pm Comment on above: Take 1 tablet by catracho th as directed. May repeat in 2 hours if needed spironolactone 25 mg oral tablet (3 sources) Aldosterone Antagonist Start: 11-14-19 take 1 tablet by mouth once daily spironolactone (ALDACTONE) 25 mg tablet Indications: Primary hypertension Take 1 tablet by mouth once daily. 90 tablet 1 11/13/2024 Active vitamin b12 1 mg oral tablet (11 sources) Vitamin B12 Start: 04-17-20 End: 08-08-19 take 1 tablet by mouth once daily cyanocobalamin (VITAMIN B-12) 1,000 mcg tab Indications: B12 deficiency Take 1 tablet by mouth once daily. 90 tablet 3 08/07/2024 Active Completed/Discontinued Medications Medication Drug Class(es) Dates Sig (Normalized) Sig (Original) benzonatate 200 mg oral capsule (13 sources) Non-narcotic Antitussive Start: 05-03-2022 End: 04-12-2024 take 1 capsule by mouth every eight hours as needed Benzonatate 200 mg capsule Take 1 capsule by mouth three times daily as needed. 21 capsule 05/03/2022 04/12/2024 Discontinued Start: 08-23-2018 End: 05-03-2022 take 1 capsule by mouth three times daily as needed for cough benzonatate (TESSALON PERLES) 100 mg capsule Indications: Viral URI Take 1 capsule by mouth three times daily as needed for Cough. 21 capsule 08/23/2018 05/03/2022 Discontinued (Discontinued by Patient) Comment on above: Take 1 capsule by mo uth three times daily as needed for Cough. Take 1 capsule by mo uth three times daily as needed. COMPOUNDED PRESCRIPTION (3 sources) Start: 07-01-2017 End: 05-03-2022 COMPOUNDED PRESCRIPTION Humidifier for home use Dx nasal congestion and drainage 1 Each 07/01/2017 05/03/2022 Discontinued (Discontinued by Patient) Start: 07-01-2017 End: 05-03-2022 COMPOUNDED PRESCRIPTION Humi difier for home use Dx nasal congestion and drainage 1 Each 0 07/01/2017 05/03/2022 Discontinued (Discontinued by Patient) Start: 07-01-2017 COMPOUNDED PRE SCRIPTION Humidifier for home use Dx nasal congestion and drainage 1 Each 0 07/01/2017 Active Comment on above: Humidifier for home use Dx nasal congestion and drainage diphenhydrAMINE hydrochloride 25 mg oral capsule (3 sources) Histamine-1 Receptor Antagonist Start: End: take 1 capsule by mouth every six hours as needed diphenhydrAMINE (BENADRYL) 25 mg capsule Indications: Eyelid gland swelling, right Take 1 capsule by mouth every 6 hours as needed. 28 capsule 04/04/2019 05/03/2022 Discontinued (Discontinued by Patient) Comment on above: Take 1 capsule by mo [facility] every 6 hours as needed. fluticasone propionate 0.05 mg/actuat metered dose nasal spray (3 sources) Corticosteroid Start: End: take 2 spray(s) by mouth once daily fluticasone (FLONASE) 50 mcg/actuation nasal spray Indications: Viral URI Use 2 Sprays in each nostril once daily. Rinse mouth after use. 1 Bottle 11 10/06/2019 05/03/2022 Discontinued (Discontinued by Patient) Comment on above: Use 2 Sprays in each nostril once daily. Rinse mouth after use. ketotifen 0.25 mg/ml ophthalmic solution (3 sources) Histamine-1 Receptor Inhibitor Start: End: ketotifen fumarate (ZADITOR) 0.025 % (0.035 %) ophthalmic solution Use 1 Drop in both eyes twice daily. 1 Bottle 5 10/13/2017 05/03/2022 Discontinued (Discontinued by Patient) Start: 10-13-2017 End: 05-03-2022 ketotifen fumarate (ZADITOR) 0.025 % (0.035 %) ophthalmic solution Use 1 Drop in both eyes twice daily. 1 Bottle 5 10/13/2017 05/03/2022 Discontinued (Discontinued by Patient) Comment on above: Use 1 Drop in both e yes twice daily. loratadine 10 mg oral tablet (3 sources) Start: End: take 1 tablet by mouth once daily loratadine (CLARITIN) 10 mg tablet Indications: Eyelid gland swelling, right Take 1 tablet by mouth once daily. 30 tablet 10/06/2019 05/03/2022 Discontinued (Discontinued by Patient) Comment on above: [facility] omeprazole 20 mg delayed release oral capsule (6 sources) Proton Pump Inhibitor Start: End: take 1 capsule by mouth once daily before breakfast omeprazole (PRILOSEC) 20 mg capsule Take 1 capsule by mouth daily before breakfast. 1/2 hr before meal. 30 capsule 01/21/2021 05/03/2022 Discontinued (Discontinued by Patient) Comment on above: Take 1 capsule by mo uth daily before breakfast. As directed. 1/2 hr before meal. Take 1 capsule by mo uth daily before breakfast. 1/2 hr before meal. ondansetron 4 mg disintegrating oral tablet (2 sources) Serotonin-3 Receptor Antagonist Start: End: take 4 mg by mouth every eight hours Ondansetron Discontinued 4 MG PO Q8H April 28, 2021 12:00am January 27, 2022 2:47pm promethazine hydrochloride 25 mg oral tablet (7 sources) Phenothiazine Start: End: take 1 tablet by mouth every six hours as needed promethazine (PHENERGAN) 25 mg tablet Take 1 tablet by mouth every 6 hours as needed for Nausea/Vomiting (associated with migraines). 30 tablet 2 07/01/2017 08/11/2022 Discontinued Comment on above: Take 1 tablet by catracho every 6 hours as needed for Nausea/Vomiting (associated with migraines). sulfamethoxazole 800 mg / trimethoprim 160 mg oral tablet (3 sources) Dihydrofolate Reductase Inhibitor Antibacterial, Sulfonamide Antimicrobial Start: 025 End: 025 take 1 tablet by mouth twice daily sulfamethoxazole-tr imethoprim (BACTRIM DS) 800-160 mg per tablet Indications: Acute UTI Take 1 tablet by mouth two times a day for 7 days. 14 tablet 11/13/2024 11/15/2024 Discontinued Problems Active Problems Problem Classification Problem Date Documented Date Episodic/Chronic Anxiety disorders (20 sources) Panic disorder without agoraphobia; Translations: [Panic disorder [episodic paroxysmal anxiety]] Onset: 7 08-05-2006 Chronic Chronic obstructive pulmonary disease and bronchiectasis (20 sources) Chronic bronchitis; Translations: [Unspecified chronic bronchitis] Onset: 7 08-04-2016 Chronic Diabetes mellitus without complication (1 source) Type 2 diabetes mellitus without complications; Translations: [Diabetes mellitus type 2, controlled, without complications (HCC)] Onset: 10-03-202 5 Chronic Disorders of lipid metabolism (5 sources) Mixed hypercholesterolemia and hypertriglyceridemia; Translations: [Mixed hyperlipidemia] Onset: 4 Chronic Esophageal disorders (20 sources) Gastroesophageal reflux disease; Translations: [Gastro-esophageal reflux disease without esophagitis] Onset: 5 03-23-2005 Chronic Essential hypertension (20 sources) Essential hypertension; Translations: [Essential (primary) hypertension] Onset: 3 Chronic Genitourinary symptoms and ill-defined conditions (5 sources) Dysuria; Translations: [Dysuria] Onset: 5 11-13-2024 Episodic Headache; including migraine (20 sources) Migraine without aura; Translations: [Migraine without aura, not intractable, without status migrainosus] Onset: 5 09-04-2015 Chronic Headache; including migraine (1 source) Acute headache; Translations: [Acute nonintractable headache, unspecified headache type] Episodic Immunizations and screening for infectious disease (1 source) Encounter for immunization; Translations: [Encounter for immunization] Onset: 5 Episodic Nausea and vomiting (2 sources) Nausea and vomiting; Translations: [Nausea with vomiting, unspecified] Episodic Nutritional deficiencies (4 sources) Vitamin D deficiency; Translations: [Vitamin D deficiency, unspecified] Onset: 5 Chronic Nutritional deficiencies (3 sources) Cobalamin deficiency; Translations: [Deficiency of other specified B group vitamins] Onset: 5 04-17-2024 Episodic Open wounds of head; neck; and trunk (1 source) Open wound of abdomen; Translations: [Unspecified open wound of abdominal wall, unspecified quadrant without penetration into peritoneal cavity, initial encounter] Onset: 3 Episodic Osteoarthritis (20 sources) Degenerative joint disease involving multiple joints; Translations: [Polyosteoarthritis, unspecified] Onset: 5 03-11-2005 Chronic Other aftercare (9 sources) Patient encounter status; Translations: [Other [facility] (current[facility] drug therapy] Episodic Other connective tissue disease (1 source) Swelling of left foot; Translations: [Other specified soft tissue disorders] 08-07-2024 Episodic Other ear and sense organ disorders (1 source) Impacted cerumen in left ear; Translations: [Impacted cerumen, left ear] Episodic Other lower respiratory disease (1 source) Cough; Translations: [Acute cough] Episodic Other lower respiratory disease (1 source) Dyspnea on exertion; Translations: [Other forms of dyspnea] 08-07-2024 Episodic Other non-traumatic joint disorders (1 source) Pain in left knee; Translations: [Pain in joint, lower leg] 01-21-2021 Episodic Other nutritional; endocrine; and metabolic disorders (20 sources) Morbid obesity; Translations: [Body mass index (BMI) 60.0-69.9, adult] Onset: 7 08-04-2016 Chronic Other nutritional; endocrine; and metabolic disorders (1 source) Body mass index 40+ - severely obese; Translations: [Morbid (severe) obesity due to excess calories] Chronic Other nutritional; endocrine; and metabolic disorders (2 sources) Severe obesity; Translations: [Class 3 severe obesity due to excess calories with body mass index (BMI) of 60.0 to 69.9 in adult, unspecified whether serious comorbidity present (HCC)] 08-07-2024 Chronic Other nutritional; endocrine; and metabolic disorders (2 sources) Body mass index (BMI) 60.0-69.9, adult; Translations: [BMI 60.0-69.9, adult (HCC)] Onset: 7 Chronic Other screening for suspected conditions (not mental disorders or infectious disease) (1 source) Encounter for screening mammogram for malignant neoplasm of breast; Translations: [Encounter for screening mammogram for breast cancer] Onset: 5 Episodic Other upper respiratory infections (3 sources) Viral upper respiratory tract infection; Translations: [Acute upper respiratory infection, unspecified] Onset: 5 Episodic Residual codes; unclassified (20 sources) Daytime somnolence; Translations: [Other hypersomnia] 08-28-2015 Chronic Residual codes; unclassified (2 sources) Acquired absence of uterus with remaining cervical stump; Translations: [Other postprocedural status] Episodic Residual codes; unclassified (2 sources) Pain; Translations: [Pain, unspecified] 07-26-2023 Episodic Residual codes; unclassified (1 source) Edema, generalized; Translations: [Generalized edema] 11-13-2024 Episodic Residual codes; unclassified (1 source) Localized edema; Translations: [Bilateral lower extremity edema] Onset: 5 Episodic Skin and subcutaneous tissue infections (2 sources) Cellulitis; Translations: [Cellulitis, unspecified] Onset: 4 Episodic Unclassified (1 source) Class 3 severe obesity due to excess calories with body mass index (BMI) of 60.0 to 69.9 in adult, unspecified whether serious comorbidity present (HCC); Translations: [Class 3 severe obesity due to excess calories with body mass index (BMI) of 60.0 to 69.9 in adult, unspecified whether serious comorbidity present (HCC)] Onset: 5 Viral infection (5 sources) Viral disease; Translations: [Viral infection, unspecified] Onset: 5 05-11-2024 Episodic Past or Other Problems Problem Classification Problem Date Documented Da te Episodic/Chronic Calculus of urinary tract (20 sources) Kidney stone; Translations: [Calculus of kidney] Onset: 07-24-2016 07-24-2016 Episodic Diabetes mellitus without complication (7 sources) Increased glucose level; Translations: [Other abnormal glucose] Onset: 04-12-2024 Episodic Heart valve disorders (2 sources) Heart murmur; Translations: [Cardiac murmur, unspecified] Onset: 04-25-2024 04-12-2024 Episodic Other aftercare (1 source) Encounter for therapeutic drug level monitoring; Translations: [Encounter for therapeutic drug monitoring] Onset: 04-12-2024 Episodic Other upper respiratory disease (20 sources) Allergic rhinitis; Translations: [Allergic rhinitis, unspecified] Resolved: 08-11-2022 10-05-2019 Chronic Residual codes; unclassified (1 source) Generalized edema; Translations: [Generalized edema] Onset: 11-13-2024 Episodic Spondylosis; intervertebral disc disorders; other back problems (20 sources) Sciatica; Translations: [Sciatica, unspecified side] Onset: 03-11-2005 Resolved: 08-11-2022 03-11-2005 Episodic Unclassified (1 source) Patient encounter status 07-04-2024 Urinary tract infections (7 sources) Cystitis; Translations: [Cystitis, unspecified without hematuria] Onset: 11-13-2024 Episodic Results Test Name Value Interpretation Reference Range Facility [facility] ANASTASIA HELLER ([id number]) 1970 F Date Time Provider Department 03/20/25 SHAUNA BELLO During your visit today, we recorded the following information about you: Nya Phan, SHANNON 03/20/2025 7:16 PM Signed Pt calling in and states she is feeling ill and thinks she has a sinus infection. States she gets them usually this time of the year. Pt states she is very stuff and hard to breath through her nose. Requsting antibiotic or something for her congestion and cough. Pt informed that she needs to come in for an appt. She can [facility] come [facility] to [facility], or can make pt an appt for tomorrow. Pt states she has no way to get there. Pt has [employer]. Encouraged to call her [employer] to help her get a ride in to the office. Given [facility] transportation number and also phone number for public transportation [facility] in [place]. Pt will attempt these tomorrow and try to get a ride in. Allergies As of Date: 03/20/2025 Noted Allergy Reaction REGLAN (METOCLOPRAMIDE HCL) 09/22/2009 Comments: [place] like coming out of her skin; felt like was was more nauseated the next day ZOLOFT (SERTRALINE HCL) 08/11/2007 5 - Intolerance 6 - Diarrhea Comments: Forgetfullness; did not help with somnolence Date Reviewed: 02/23/2025 Reviewed by: iGnger Qureshi LPN - Fully Assessed Reason for Visit: Patient ill-thinks sinus infection [Other] Prescriptions as of 03/20/2025 - cholecalciferol, Vitamin D3, (VITAMIN D3) 1,250 mcg (50,000 unit) cap capsule Take 1 capsule by mouth one time a week. - ibuprofen (MOTRIN) 600 mg tablet Take 1 tablet by mouth every 8 hours as needed for pain (for migraines). - meloxicam (MOBIC) 7.5 mg tablet Take 1 tablet by mouth once daily as needed for pain (for knee pain). With food. Do not take on days you take the ibuprofen. - spironolactone (ALDACTONE) 25 mg tablet Take 1 tablet by mouth once daily. - atenolol (TENORMIN) 50 mg tablet Take 1 tablet by mouth once daily. - phenazopyridine (PYRIDIUM) 200 mg tablet Take 1 tablet by mouth three times a day before meals. - acyclovir (ZOVIRAX) 5 % crea Apply to affected area five times a day. - Blood Pressure Monitor 1 Each two times a day as needed (for BP management). - blood sugar diagnostic (BLOOD GLUCOSE TEST) test strip Test blood sugar(s) 1 times daily. Dx: Other DM Code R73.9 Insulin: No - Lancets Use with blood glucose test once daily. R73.9 Hyperglycemia - cyanocobalamin (VITAMIN B-12) 1,000 mcg tab Take 1 tablet by mouth once daily. - rizatriptan (MAXALT-ENGINEERING DOCUMENTATION SPECIALIST) 10 mg disintegrating tablet Take 1 tablet (10 mg) by mouth as directed. May repeat in 2 hours if needed - albuterol HFA (VENTOLIN HFA) 90 mcg/actuation inhaler Inhale 2 Puffs as instructed every 4 hours as needed for wheezing/shortness of breath. Problem List As Of Date 03/20/2025 Noted Resolved Osteoarthritis of multiple joints [M15.9] 03/11/2005 SCIATICA [M54.30] 03/11/2005 Migraine without aura [G43.009] 03/23/2005 ESOPHAGEAL REFLUX [K21.9] 03/23/2005 PANIC DISORDER WITHOUT AGORAPHOBIA [F41.0] 08/05/2006 Allergic rhinitis [J30.9] 08/11/2022 Excessive daytime sleepiness [G47.19] Neck pain [M54.2] 08/11/2022 Kidney stones [N20.0] 07/24/2016 Calculus of ureter [N20.1] 08/04/2016 Gastroesophageal reflux disease [K21.9] 08/04/2016 BMI 60.0-69.9, adult (HCC) [Z68.44] 08/04/2016 Chronic bronchitis (HCC) [J42] 08/04/2016 Primary hypertension [I10] 08/11/2022 Encounter Status:Closed by NYA PHAN on 03/20/25 [facility] Martir 03-02-2025 CNPN Telephone (INTMWS) ARTANASTASIA ([id number]) 1970 F Date Time Provider Department 03/02/25 SHAUNA BELLO INTMWS During your visit today, we recorded the following information about you: Varghese Aleman RN 03/02/2025 10:16 AM Signed Patient calls to ask if provider has got a chance to look at lab results from 02/23/2025. Notified pending provider review and will contact patient with message when available. Patient requests we call her at [phone]. SHANNON Frank Liza D, MD 03/02/2025 1:10 PM Signed From Result note: Vitamin D level improved but still low. Need to increase Vitamin D intake. Verify was able to refill Vitamin D3 5000 units daily and take routinely. We could increase the dose to 50,000 units weekly for a couple months then resume 5000 units daily, or she could stay on the same dose and see if level keeps improving. Metabolic panel all normal except glucose 139 which is a little better than May lab when was 141. HgA1C still 6.0 Lipids still with high LDL. high TG. HDL okay at 42. B12 is low at 207--last time was low normal at 251. CBC normal. Ifs he has been taking the B12 1000 mcg pill routinely, needs B12 injections. TSH okay at 4.000; Free T4 also within normal range. See what patient prefers to do about the B12 and Vitamin D3. Okay with B12 shots (nurse visit monthly)? If so, will file orders. Okay with higher daily dose D3 or prefer once weekly higher dose for short term ? Would get follow up labs after 2 to 3 months. Katie Nicole LPN 03/02/2025 2:11 PM Signed Called pt with no answer and mail box is full unable to leave a message. Elli Way MA 03/15/2025 1:56 PM Signed 2nd attempt No answer, voicemail full Adilia Mccann RN 03/15/2025 2:26 PM Signed Pt given provider's message below. 1) Pt agreeable to trying Vit D3 50,000 units weekly for a couple months. 2)Pt states she has been taking B12 1000 mcg pill routinely. Agreeable to trying B12 injections and asking if she can self-administer these at home? Please call patient back with reply. Shauna Bello MD 03/16/2025 1:25 AM Signed The following approved medication requests have been transmitted electronically. Requested Prescriptions Signed Prescriptions Disp Refills cholecalciferol, Vitamin D3, (VITAMIN D3) 1,250 mcg (50,000 unit) cap capsule 4 capsule 1 Sig: Take 1 capsule by mouth one time a week. Authorizing Provider: SHAUNA BELLO MD Can we give patient instruction for self administration of B12? And will her insurance pay ? Venita Huff LPN 04/02/2025 2:55 PM Signed Patient aware Vitamin D Rx at pharmacy. Patient to check with insurance company concerning vitamin b-12 injections at home. Denies further needs. Venita Huff LPN Allergies As of Date: 03/02/2025 Noted Allergy Reaction REGLAN (METOCLOPRAMIDE HCL) 09/22/2009 Comments: [place] like coming out of her skin; felt like was was more nauseated the next day ZOLOFT (SERTRALINE HCL) 08/11/2007 5 - Intolerance 6 - Diarrhea Comments: Forgetfullness; did not help with somnolence Date Reviewed: 02/23/2025 Reviewed by: Ginger Qureshi LPN - Fully Assessed Reason for Visit: Results [95] Order(s):cholecalcife rol, Vitamin D3, (VITAMIN D3) 1,250 mcg (50,000 unit) cap capsuleTake 1 capsule by mouth one time a week.Disp: 4 capsuleRfl: 1 Prescriptions as of 04/02/2025 - cholecalciferol, Vitamin D3, (VITAMIN D3) 1,250 mcg (50,000 unit) cap capsule Take 1 capsule by mouth one time a week. - ibuprofen (MOTRIN) 600 mg tablet Take 1 tablet by mouth every 8 hours as needed for pain (for migraines). - meloxicam (MOBIC) 7.5 mg tablet Take 1 tablet by mouth once daily as needed for pain (for knee pain). With food. Do not take on days you take the ibuprofen. - spironolactone (ALDACTONE) 25 mg tablet Take 1 tablet by mouth once daily. - atenolol (TENORMIN) 50 mg tablet Take 1 tablet by mouth once daily. - phenazopyridine (PYRIDIUM) 200 mg tablet Take 1 tablet by mouth three times a day before meals. - acyclovir (ZOVIRAX) 5 % crea Apply to affected area five times a day. - Blood Pressure Monitor 1 Each two times a day as needed (for BP management). - blood sugar diagnostic (BLOOD GLUCOSE TEST) test strip Test blood sugar(s) 1 times daily. Dx: Other DM Code R73.9 Insulin: No - Lancets Use with blood glucose test once daily. R73.9 Hyperglycemia - cyanocobalamin (VITAMIN B-12) 1,000 mcg tab Take 1 tablet by mouth once daily. - rizatriptan (MAXALT-ENGINEERING DOCUMENTATION SPECIALIST) 10 mg disintegrating tablet Take 1 tablet (10 mg) by mouth as directed. May repeat in 2 hours if needed - albuterol HFA (VENTOLIN HFA) 90 mcg/actuation inhaler Inhale 2 Puffs as instructed every 4 hours as needed for wheezing/shortness of breath. Problem List As Of Date 03/02/2025 Noted Resolved Osteoarthritis (more content not included)... Normal [facility] SCREENING W Karoline 03-02 PATRICIA SCREENING W JERICHO * * *Final Report* * * DATE OF EXAM: Mar 02 2025 1:38PM [id number] [id number] - PATRICIA SCREENING W JERICHO / PROCEDURE REASON: Encounter for screening mammogram for breast cancer * * * * Physician Interpretation * * * * RESULT: [address] [address] [place] [address] #[id number] - PATRICIA SCREENING W JERICHO HISTORY: 54 year-old patient presents for screening. Patient is asymptomatic in both breasts. Patient states no personal history of breast cancer. COMPARISON STUDIES: This is a baseline study. MAMMOGRAM TECHNIQUE: The study was acquired using full field digital technology and interpreted from soft copy. Digital Breast Tomosynthesis (DBT) images were obtained and used to assist in the interpretation of this examination. MAMMOGRAM FINDINGS: The breasts are almost entirely fatty. There is a focal asymmetry in the anterior depth upper outer quadrant of the left breast. No suspicious masses, calcifications or other abnormalities are seen in the right breast. IMPRESSION: The focal asymmetry in the anterior depth upper outer quadrant of the left breast requires additional evaluation. Diagnostic mammogram with possible ultrasound is recommended. BI-RADS Category 0: Incomplete: Needs Additional Imaging Evaluation RISK: Based on the Tyrer-Cuzick (TC) risk assessment model, this patient has a 3.6% lifetime risk of developing breast cancer, meaning they are at average risk for developing breast cancer. However, this is only an estimate based on available history provided on the patient's questionnaire. We encourage all patients to talk with their providers about these results, further recommendations for managing breast health, and appropriate supplemental screening options if the patient has dense breast tissue. REF#[id number]. Interpreting Radiologist: Yesika Gustafson M.D. Electronically signed on: 03/07/2025 Nuclear Equipment Design Engineer: JOEL Transcribe Date/Time: Mar 02 2025 1:21P Dictated by: YESIKA GUSTAFSON MD This examination was interpreted and the report reviewed and electronically signed by: YESIKA GUSTAFSON MD on Mar 07 2025 12:12PM EST [id number] N Normal [facility] 25(OH)D3 [facility] 2024 25-hydroxyvitamin D3 [Mass/Vol] 20.2 ng/mL Low 31.0-80.0 [facility] Comment on above: Order Comment: Speci men Type: BLOOD SPECIMEN Ordering Facility: [facility] Address: [address] [place] [address] Result Comment: Clas sification of 25 [place] Vitamin D status: Deficiency/Insufficiency: < or = 30 ng/ml. Sufficiency/Optimal Levels: 31-80 ng/mL Toxicity: > 100 ng/mL. Test performed by chemiluminescent immunoassay. Performed By: #### 5 7021-8 #### [facility] [place] [id number] [address] [place] [address] [place] CBC panel Auto (Bld)on 02-23 Erythrocyte distribution width (RBC) [Ratio] 12.7 % Normal 11.5-15.0 [facility] Comment on above: Order Comment: Speci men Type: BLOOD SPECIMEN Ordering Facility: [facility] Address: [address] [place] [address] Performed By: #### 5 7021-8 #### [facility] [place] [id number] [address] [place] [address] [place] Hematocrit (Bld) [Volume fraction] 43.3 % Normal 36.0-46.0 [facility] Comment on above: Order Comment: Speci men Type: BLOOD SPECIMEN Ordering Facility: [facility] Address: [address] [place] [address] Performed By: #### 5 7021-8 #### [facility] [place] [id number] [address] [place] [address] [place] Hemoglobin (Bld) [Mass/Vol] 14.3 g/dL Normal 11.5-15.5 [facility] Comment on above: Order Comment: Speci men Type: BLOOD SPECIMEN Ordering Facility: [facility] Address: [address] [place] [address] Performed By: #### 5 7021-8 #### [facility] CLIA [id number] [address] [place] [address] [place] MCH (RBC) [Entitic mass] 29.1 pg Normal 26.0-34.0 [facility] Comment on above: Order Comment: Speci men Type: BLOOD SPECIMEN Ordering Facility: [facility] Address: [address] [place] [address] Performed By: #### 5 7021-8 #### [facility] CLIA [id number] [address] [place] [address] [place] MCHC (RBC) [Mass/Vol] 33.0 g/dL Normal 30.5-36.0 [facility] Comment on above: Order Comment: Speci men Type: BLOOD SPECIMEN Ordering Facility: [facility] Address: [address] [place] [address] Performed By: #### 5 7021-8 #### [facility] CLIA [id number] [address] [place] [address] [place] MCV (RBC) [Entitic vol] 88.0 fL Normal 80.0-100.0 [facility] Comment on above: Order Comment: Speci men Type: BLOOD SPECIMEN Ordering Facility: [facility] Address: [address] [place] [address] Performed By: #### 5 7021-8 #### [facility] CLIA [id number] [address] [place] [address] [place] Nucleated RBC (Bld) [#/Vol] 10*3/uL Normal <0.01 [facility] Comment on above: Order Comment: Speci men Type: BLOOD SPECIMEN Ordering Facility: [facility] Address: [address] [place] [address] Performed By: #### 5 7021-8 #### [facility] CLIA [id number] [address] [place] [address] [place] Platelet mean volume (Bld) [Entitic vol] 11.2 fL Normal 9.0-12.7 [facility] Comment on above: Order Comment: Speci men Type: BLOOD SPECIMEN Ordering Facility: [facility] Address: [address] [place] [address] Performed By: #### 5 7021-8 #### [facility] CLIA [id number] [address] [place] [address] [place] Platelets (Bld) [#/Vol] 316 10*3/uL Normal 150-400 [facility] Comment on above: Order Comment: Speci men Type: BLOOD SPECIMEN Ordering Facility: [facility] Address: [address] [place] [address] Performed By: #### 5 7021-8 #### [facility] CLIA [id number] [address] [place] [address] [place] RBC (Bld) [#/Vol] 4.92 10*6/uL Normal 3.90-5.20 [facility] Comment on above: Order Comment: Speci men Type: BLOOD SPECIMEN Ordering Facility: [facility] Address: [address] [place] [address] Performed By: #### 5 7021-8 #### [facility] CLIA [id number] [address] [place] [address] [place] WBC (Bld) [#/Vol] 6.81 10*3/uL Normal 3.70-11.00 [facility] Comment on above: Order Comment: Speci men Type: BLOOD SPECIMEN Ordering Facility: [facility] Address: [address] [place] [address] Performed By: #### 5 7021-8 #### [facility] CLIA [id number] [address] [place] [address] [place] CNOVon 02-23-2025 CNOV Office Visit (INTMWS ) ANASTASIA HELLER ([id number]) 1970 F Date Time Provider Department 02/23/25 8:40 AM SHAUNA BELLO INTMWS During your visit today, we recorded the following information about you: Pulse Respiration Blood pressure Weight 67/minute 16/minute 158/90 143.2 kg Shauna Bello MD 02/23/2025 12:28 PM Signed Subjective Anastasia Heller is a 54 year old female. GEOVANNA Oconnor is a 54-year-old female with a history of HTN, DM, and knee arthritis, presenting for a regular 3-month check-up. Anastasia reports persistent fatigue and dyspnea on exertion, noting that she becomes short of breath after walking short distances, such as from her car to the clinic. She attributes her difficulty walking to knee arthritis, which is more severe in the left knee but also affects the right knee at night. She also reports significant swelling in her left foot, which she describes as quite a bit, while the right foot remains unaffected. She has been taking meloxicam for knee pain, particularly at night, and requests a refill. She also uses ibuprofen for headaches. Anastasia has been making dietary changes, including reducing junk food intake and practicing portion control, which has resulted in gradual weight loss. She is taking vitamin D and B12 supplements and reports adherence to these medications. She is also on atenolol for blood pressure management but has not refilled it recently. She is considering applying for disability due to her ongoing symptoms but plans to wait 6 months to a year to see if her condition improves with weight loss. PAST MEDICAL HISTORY Diagnosis Date Allergic rhinitis, cause unspecified Calculus of kidney Daytime sleepiness Endometrial hyperplasia, unspecified 05/04/06 Esophageal reflux 03/23/2005 Generalized osteoarthrosis, unspecified site Migraine without aura, without mention of intractable migraine without mention of status migrainosus 03/23/2005 Panic disorder without agoraphobia Sciatica Current Outpatient Medications Medication Sig phenazopyridine (PYRIDIUM) 200 mg tablet Take 1 tablet by mouth three times a day before meals. acyclovir (ZOVIRAX) 5 % crea Apply to affected area five times a day. Blood Pressure Monitor 1 Each two times a day as needed (for BP management). blood sugar diagnostic (BLOOD GLUCOSE TEST) test strip Test blood sugar(s) 1 times daily. Dx: Other DM Code R73.9 Insulin: No Lancets Use with blood glucose test once daily. R73.9 Hyperglycemia cyanocobalamin (VITAMIN B-12) 1,000 mcg tab Take 1 tablet by mouth once daily. rizatriptan (MAXALT-ENGINEERING DOCUMENTATION SPECIALIST) 10 mg disintegrating tablet Take 1 tablet (10 mg) by mouth as directed. May repeat in 2 hours if needed albuterol HFA (VENTOLIN HFA) 90 mcg/actuation inhaler Inhale 2 Puffs as instructed every 4 hours as needed for wheezing/shortness of breath. ibuprofen (MOTRIN) 600 mg tablet Take 1 tablet by mouth every 8 hours as needed for pain (for migraines). meloxicam (MOBIC) 7.5 mg tablet Take 1 tablet by mouth once daily as needed for pain (for knee pain). With food. Do not take on days you take the ibuprofen. spironolactone (ALDACTONE) 25 mg tablet Take 1 tablet by mouth once daily. Cholecalciferol, Vitamin D3, 125 mcg (5,000 unit) cap Take 1 capsule by mouth once daily. atenolol (TENORMIN) 50 mg tablet Take 1 tablet by mouth once daily. No current facility-administered medications for this visit. Review of Systems Objective BP 158/90 Pulse 67 Resp 16 Wt (!) 143.2 kg (315 lb 11.2 oz) SpO2 97% BMI 62.70 kg/m? Last 5 Encounter Wt Readings: Date: Wt: 02/23/2025 143.2 kg (315 lb 11.2 oz) 02/17/2025 144 kg (317 lb 7.4 oz) 11/13/2024 144.2 kg (317 lb 14.5 oz) 08/07/2024 141.7 kg (312 lb 6.3 oz) 04/12/2024 146.5 kg (322 lb 15.6 oz) No waist measurement recorded Estimated body mass index is 62.7 kg/m? as calculated from the following: Height as of 08/07/24: 151.1 cm (4' 11.5). Weight as of this encounter: 143.2 kg (315 lb 11.2 oz). Last 5 Encounter BP Readings: Date: BP: 02/23/2025 158/90 02/17/2025 170/98 11/13/2024 167/90 08/07/2024 145/90[?[ 04/12/2024 145/84[BP Calixto Average[ Physical Exam Constitutional: Appearance: Normal appearance. She is obese. HENT: Head: Normocephalic. Eyes: Conjunctiva/sclera: Conjunctivae normal. Cardiovascular: Rate and Rhythm: Normal rate and regular rhythm. Heart sounds: Normal heart sounds. Pulmonary: Effort: Pulmonary effort is normal. Breath sounds: Normal breath sounds. Musculoskeletal: Right lower le+ Pitting Edema (feet) present. Left lower le+ Pitting Edema (feet) present. Skin: General: Skin is warm and dry. Neurological: General: No focal deficit present. Mental Status: She is alert and oriented to person, place, and time. Psychiatric: Mood and Affect: Mood normal. Behavior: Behavior normal. (more content not included)... Normal [facility] Comprehensive metabolic 2000 panelon 02-23-2025 Albumin [Mass/Vol] 4.3 g/dL Normal 3.9-4.9 [facility] Comment on above: Order Comment: Nicole azar Type: BLOOD SPECIMEN Ordering Facility: [facility] Address: [address] [place] [address] Performed By: #### 5 7021-8 #### [facility] CLIA [id number] [address] [place] [address] [place] ALP [Catalytic activity/Vol] 93 U/L Normal 34-123 [facility] Comment on above: Order Comment: Nicole azar Type: BLOOD SPECIMEN Ordering Facility: [facility] Address: [address] [place] [address] Performed By: #### 5 7021-8 #### [facility] CLIA [id number] [address] [place] [address] [place] ALT [Catalytic activity/Vol] 29 U/L Normal 7-38 [facility] Comment on above: Order Comment: Pazi nissa Type: BLOOD SPECIMEN Ordering Facility: [facility] Address: [address] [place] [address] Performed By: #### 5 7021-8 #### [facility] CLIA [id number] [address] [place] [address] [place] Anion gap [Moles/Vol] 15 mmol/L Normal 8-15 [facility] Comment on above: Order Comment: Speci men Type: BLOOD SPECIMEN Ordering Facility: [facility] Address: [address] [place] [address] Performed By: #### 5 7021-8 #### [facility] CLIA [id number] [address] [place] [address] [place] AST [Catalytic activity/Vol] 29 U/L Normal 13-35 [facility] Comment on above: Order Comment: Speci men Type: BLOOD SPECIMEN Ordering Facility: [facility] Address: [address] [place] [address] Performed By: #### 5 7021-8 #### [facility] CLIA [id number] [address] [place] [address] [place] Bilirubin [Mass/Vol] 0.5 mg/dL Normal 0.2-1.3 [facility] Comment on above: Order Comment: Speci men Type: BLOOD SPECIMEN Ordering Facility: [facility] Address: [address] [place] [address] Performed By: #### 5 7021-8 #### [facility] CLIA [id number] [address] [place] [address] [place] Calcium [Mass/Vol] 9.5 mg/dL Normal 8.5-10.2 [facility] Comment on above: Order Comment: Speci men Type: BLOOD SPECIMEN Ordering Facility: [facility] Address: [address] [place] [address] Performed By: #### 5 7021-8 #### [facility] CLIA [id number] [address] [place] [address] [place] Chloride [Moles/Vol] 103 mmol/L Normal 98-107 [facility] Comment on above: Order Comment: Speci men Type: BLOOD SPECIMEN Ordering Facility: [facility] Address: [address] [place] [address] Performed By: #### 5 7021-8 #### [facility] CLIA [id number] [address] [place] [address] [place] CO2 [Moles/Vol] 24 mmol/L Normal 22-30 [facility] Comment on above: Order Comment: Speci men Type: BLOOD SPECIMEN Ordering Facility: [facility] Address: [address] [place] [address] Performed By: #### 5 7021-8 #### [facility] CLIA [id number] [address] [place] [address] [place] Creatinine [Mass/Vol] 0.64 mg/dL Normal 0.58-0.96 [facility] Comment on above: Order Comment: Speci men Type: BLOOD SPECIMEN Ordering Facility: [facility] Address: [address] [place] [address] Performed By: #### 5 7021-8 #### [facility] CLIA [id number] [address] [place] [address] [place] eGFRcr SerPlBld CKD-EPI 2020 104 mL/min/1.73m??? Normal >=60 [facility] Comment on above: Order Comment: Speci men Type: BLOOD SPECIMEN Ordering Facility: [facility] Address: [address] [place] [address] Result Comment: Ally mated Glomerular Filtration Rate (eGFR) is calculated using the 2020 CKD-EPI creatinine equation. This equation utilizes serum creatinine, sex, and age as parameters. The creatinine assay has traceable calibration to isotope dilution-mass spectrometry. Refer to KDIGO guidelines for clinical interpretation. In patients with unstable renal function, e.g. those with acute kidney injury, the eGFR may not accurately reflect actual GFR. Performed By: #### 5 7021-8 #### [facility] CLIA [id number] [address] [place] [address] [place] Glucose [Mass/Vol] 139 mg/dL High 74-99 [facility] Comment on above: Order Comment: Speci men Type: BLOOD SPECIMEN Ordering Facility: [facility] Address: [address] [place] [address] Result Comment: The [place] Diabetes Association (ADA) provides guidance for cutoff values for fasting glucose and random glucose. The ADA defines fasting as no caloric intake for at least 8 hours. Fasting plasma glucose results between 100 to 125 mg/dL indicate increased risk for diabetes (prediabetes). Fasting plasma glucose results greater than or equal to 126 mg/dL meet the criteria for diagnosis of diabetes. In the absence of unequivocal hyperglycemia, results should be confirmed by repeat testing. In a patient with classic symptoms of hyperglycemia or hyperglycemic crisis, random plasma glucose results greater than or equal to 200 mg/dL meet the criteria for diagnosis of diabetes. Reference: Standards of Medical Care in Diabetes 2016, [place] Diabetes Association. Diabetes Care. 2016.39(Suppl 1). Performed By: #### 5 7021-8 #### [facility] CLIA [id number] [address] [place] [address] [place] Potassium [Moles/Vol] 4.0 mmol/L Normal 3.7-5.1 [facility] Comment on above: Order Comment: Speci men Type: BLOOD SPECIMEN Ordering Facility: [facility] Address: [address] [place] [address] Performed By: #### 5 7021-8 #### [facility] CLIA [id number] [address] [place] [address] [place] Protein [Mass/Vol] 7.7 g/dL Normal 6.3-8.0 [facility] Comment on above: Order Comment: Speci men Type: BLOOD SPECIMEN Ordering Facility: [facility] Address: [address] [place] [address] Performed By: #### 5 7021-8 #### [facility] CLIA [id number] [address] [place] [address] [place] Sodium [Moles/Vol] 142 mmol/L Normal 136-144 [facility] Comment on above: Order Comment: Speci men Type: BLOOD SPECIMEN Ordering Facility: [facility] Address: [address] [place] [address] Performed By: #### 5 7021-8 #### [facility] CLIA [id number] [address] [place] [address] [place] Urea nitrogen [Mass/Vol] 11 mg/dL Normal 7-21 [facility] Comment on above: Order Comment: Speci men Type: BLOOD SPECIMEN Ordering Facility: [facility] Address: [address] [place] [address] Performed By: #### 5 7021-8 #### [facility] CLIA [id number] [address] [place] [address] [place] HbA1c (Bld)on 02-23-2025 Average glucose Estimated from glycated hemoglobin (Bld) [Mass/Vol] 126 mg/dL Normal [facility] Comment on above: Order Comment: Speci men Type: BLOOD SPECIMENOrdering Facility: [facility] Address: [address] [place] [address] Result Comment: eAG: (Estimated average glucose) is a calculated value from HgbA1c and is member service representative of the average blood glucose level in the last 2-3 month period. Performed By: #### 5 5454-3 ####[facility] [id number] [place] [address] [place] HbA1c (Bld) [Mass fraction] 6.0 % High 4.3-5.6 [facility] Comment on above: Order Comment: Speci men Type: BLOOD SPECIMENOrdering Facility: [facility] Address: [address] [place] [address] Result Comment: [place] Diabetes Association guidelines indicate that patients with HgbA1c in the range 5.7-6.4% are at increased risk for development of diabetes, and intervention by lifestyle modification may be beneficial. HgbA1c greater or equal to 6.5% is considered diagnostic of diabetes. Performed By: #### 5 5454-3 ####[facility] [id number] [address] [address] [place] Lipid 1996 panelon 10-03-202 5 Cholesterol [Mass/Vol] 243 mg/dL High <200 [facility] Comment on above: Order Comment: Pazi men Type: BLOOD SPECIMEN Ordering Facility: [facility] Address: [address] [place] [address] Result Comment: <200 mg/dL, Desirable 200-239 mg/dL, Borderline high >239 mg/dL, High Performed By: #### 5 7021-8 #### [facility] CLIA [id number] [address] [place] [address] [place] Cholesterol in HDL [Mass/Vol] 42 mg/dL Normal >39 [facility] Comment on above: Order Comment: Pazi men Type: BLOOD SPECIMEN Ordering Facility: [facility] Address: [address] [place] [address] Result Comment: 40-5 9 mg/dL, Acceptable >59 mg/dL, High: Negative risk factor for coronary heart disease <40 mg/dL, Low: Positive risk factor for coronary heart disease Performed By: #### 5 7021-8 #### [facility] CLIA [id number] [address] [place] [address] [place] Cholesterol in LDL [Mass/Vol] 164 mg/dL High <100 [facility] Comment on above: Order Comment: Pazjacinto azar Type: BLOOD SPECIMEN Ordering Facility: [facility] Address: [address] [place] [address] Result Comment: <100 mg/dL, Optimal 100-129 mg/dL, Near optimal/above optimal 130-159 mg/dL, Borderline high 160-189 mg/dL, High >189 mg/dL, Very high Secondary prevention optimal LDL Cholesterol levels are recommended to be <70 mg/dL LDL cholesterol is calculated using the Glynn-NIH equation. Performed By: #### 5 7021-8 #### [facility] CLIA [id number] [address] [place] [address] [place] Cholesterol in LDL/Cholesterol in HDL [Mass ratio] 3.90 {ratio} High <2.54 [facility] Comment on above: Order Comment: Nicole azar Type: BLOOD SPECIMEN Ordering Facility: [facility] Address: [address] [place] [address] Result Comment: Shelli denise: 1. National Cholesterol Education Program ATP III Guideline At-A-Glance Quick Desk Reference: National Heart, Lung, and Blood [place]. National Institutes of Health. 2001: NIH Publication No. 01-3305. 2. An International Atherosclerosis Society position paper: global recommendations for the management of dyslipidemia: executive summary, Atherosclerosis. 2014: 232(2):410-413. Performed By: #### 5 7021-8 #### [facility] CLIA [id number] [address] [place] [address] [place] Cholesterol in VLDL [Mass/Vol] 39 mg/dL High <30 [facility] Comment on above: Order Comment: Nicole azar Type: BLOOD SPECIMEN Ordering Facility: [facility] Address: [address] [place] [address] Performed By: #### 5 7021-8 #### [facility] CLIA [id number] [address] [place] [address] [place] Cholesterol non HDL [Mass/Vol] 201 mg/dL High <130 [facility] Comment on above: Order Comment: Nicole azar Type: BLOOD SPECIMEN Ordering Facility: [facility] Address: [address] [place] [address] Result Comment: <130 mg/dL, Optimal 130-159 mg/dL, Near optimal/above optimal 160-189 mg/dL, Borderline high 190-219 mg/dL, High >219 mg/dL, Very high Secondary prevention optimal non HDL Cholesterol levels are recommended to be <100 mg/dL Performed By: #### 5 7021-8 #### [facility] CLIA [id number] [address] [place] [address] [place] Cholesterol.total/Cho lesterol in HDL [Mass ratio] 5.79 {ratio} High <5.10 [facility] Comment on above: Order Comment: Nicole azar Type: BLOOD SPECIMEN Ordering Facility: [facility] Address: [address] [place] [address] Performed By: #### 5 7021-8 #### [facility] CLIA [id number] [address] [place] [address] [place] FASTING TIME 12 hrs Normal [facility] Comment on above: Order Comment: Speci men Type: BLOOD SPECIMEN Ordering Facility: [facility] Address: [address] [place] [address] Performed By: #### 5 7021-8 #### [facility] CLIA [id number] [address] [place] [address] [place] Triglyceride [Mass/Vol] 201 mg/dL High <150 [facility] Comment on above: Order Comment: Speci men Type: BLOOD SPECIMEN Ordering Facility: [facility] Address: [address] [place] [address] Result Comment: <150 mg/dL, Normal 150-199 mg/dL, Borderline high 200-499 mg/dL, High >499 mg/dL, Very high Performed By: #### 5 7021-8 #### [facility] CLIA [id number] [address] [place] [address] [place] T4 Free SerPl-mCncon 025 Free T4 [Mass/Vol] 1.1 ng/dL Normal 0.9-1.7 [facility] Comment on above: Order Comment: Speci men Type: BLOOD SPECIMEN Ordering Facility: [facility] Address: [address] [place] [address] Performed By: #### 5 7021-8 #### [facility] CLIA [id number] [address] [place] [address] [place] TSH SerPl-aCncon 02-23-2025 TSH Qn 4.000 m[IU]/L Normal 0.270-4.200 [facility] Comment on above: Order Comment: Speci men Type: BLOOD SPECIMEN Ordering Facility: [facility] Address: [address] [place] [address] Performed By: #### 5 7021-8 #### [facility] CLIA [id number] [address] [place] [address] [place] [facility]25 Cobalamin (Vitamin B12) [Mass/Vol] 207 pg/mL Low 232-1245 [facility] Comment on above: Order Comment: Speci men Type: BLOOD SPECIMEN Ordering Facility: [facility] Address: [address] [place] [address] Performed By: #### 5 7021-8 #### [facility] CLIA [id number] [address] [place] [address] [place] Bacteria Ur Culton 5 Bacteria identified Cx Nom (U) ORGANISM ID: 1 10,000 -<50,000 CFU/ml Mixed microbiota No further workup. Mixed microbiota can be due to???urine???contamin ation with skin bacteria at time of collection or presence of a long-term urinary catheter. If a new culture is needed, please consider re-education of the patient on proper midstream co llection technique or straight catheterization for???urine???collect ion. Normal [facility] Comment on above: Performed By: #### 6 30-4 ####[facility] [id number] [address] [place] CNOVon 02-17-2025 CNOV Office Visit ([facility]) ANASTASIA HELLER ([id number]) 1970 F Date Time Provider Department 02/17/25 2:45 PM ILAN TRINH During your visit today, we recorded the following information about you: Temperature Pulse Respiration Blood pressure 99.1 degrees 74/minute 22/minute 170/98 Weight 144 kg Ilan Trinh APRN.MICHELLE 02/17/2025 3:25 PM Signed [facility] Subjective Anastasia Heller is a 54 year old female. Patient presents with: Urinary Problem: Pain pressure with urine, x 2 days HPI The patient is a 54-year-old female with a history of recurrent UTIs, presenting with fatigue, lightheadedness, and urinary pressure. Fatigue and Lightheadedness: - Onset over the past few days. - Describes feeling wore out and like I'm going to pass out. - Reports no energy. Urinary Pressure: - Onset yesterday. - Describes as a lot of pressure. Recurrent UTIs: - Recent UTI 1-2 months ago, initially treated with Bactrim without improvement. - Required a stronger antibiotic for resolution. - Currently using Pyridium for symptom relief; requests a refill. - Denies back pain or abdominal pain. Review of Systems Constitutional: (+) fatigue Gastrointestinal: (-) abdominal pain Musculoskeletal: (+) back pain Neurological: (+) lightheadedness, (+) near-syncope Objective BP 170/98 Pulse 74 Temp 37.3 ?C (99.1 ?F) Resp 22 Wt (!) 144 kg (317 lb 7.4 oz) SpO2 96% BMI 63.05 kg/m? Physical Exam General: No acute distress. CV: Heart sounds regular. Resp: Lungs clear to auscultation bilaterally. Back: Mild tenderness to palpation. Abd: No tenderness to palpation. { 1. Urination pain (R30.9) - Recent history of UTI treated with Bactrim without resolution; subsequently treated with Macrobid BID for 5 days for E. coli UTI. - Currently experiencing fatigue, lightheadedness, and pelvic pressure. - Lungs clear and heart sounds regular on exam; no abdominal pain or deep back pain suggestive of pyelonephritis. - Urine culture ordered; will adjust antibiotics if necessary based on results. - Prescribed Pyridium per patient request for symptomatic relief. - Patient agreeable to care plan; follow-up as needed. and Recording using ambient Education Elements software for draft documentation of the visit was discussed with the patient/authorized member service representative; all questions welcomed and answered. Patient/authorized member service representative agreed to proceed History and Record Review External record(s) reviewed: prior outpatient record. Findings from review of outpatient records: urine cultures Disposition The patient was discharged. Procedures Allergies As of Date: 02/17/2025 Noted Allergy Reaction REGLAN (METOCLOPRAMIDE HCL) 09/22/2009 Comments: [place]houn like coming out of her skin; felt like was was more nauseated the next day ZOLOFT (SERTRALINE HCL) 08/11/2007 5 - Intolerance 6 - Diarrhea Comments: Forgetfullness; did not help with somnolence Date Reviewed: 02/17/2025 Reviewed by: Shama Sánchez LPN - Fully Assessed Reason for Visit: Urinary Problem [252] Cmt: Pain pressure with urine, x 2 days Primary Visit Diagnosis:Urination pain [R30.9] Order(s):UA DIP, URINE (POC) [[id number]] Order #: [id number]. #:[id number] BACTERIAL CULTURE, URINE [SQURCUL] Order #: [id number]. #:[id number] nitrofurantoin monohydrate and macrocrystal (MACROBID) 100 mg capsuleTake 1 capsule by mouth two times a day for 5 days.Disp: 10 capsuleRfl: 0 phenazopyridine (PYRIDIUM) 100 mg tabletTake 1 tablet by mouth three times a day as needed for up to 5 days.Disp: 15 tabletRfl: 0 Prescriptions as of 02/17/2025 - nitrofurantoin monohydrate and macrocrystal (MACROBID) 100 mg capsule Take 1 capsule by mouth two times a day for 5 days. - phenazopyridine (PYRIDIUM) 100 mg tablet Take 1 tablet by mouth three times a day as needed for up to 5 days. - phenazopyridine (PYRIDIUM) 200 mg tablet Take 1 tablet by mouth three times a day before meals. - spironolactone (ALDACTONE) 25 mg tablet Take 1 tablet by mouth once daily. - acyclovir (ZOVIRAX) 5 % crea Apply to affected area five times a day. - Blood Pressure Monitor 1 Each two times a day as needed (for BP management). - blood sugar diagnostic (BLOOD GLUCOSE TEST) test strip Test blood sugar(s) 1 times daily. Dx: Other DM Code R73.9 Insulin: No - Lancets Use with blood glucose test once daily. R73.9 Hyperglycemia - cyanocobalamin (VITAMIN B-12) 1,000 mcg tab Take 1 tablet by mouth once daily. - atenolol (TENORMIN) 50 mg tablet Take 1 tablet by mouth once daily. - Cholecalciferol, Vitamin D3, 125 mcg (5,000 unit) cap Take 1 capsule by mouth once daily. - rizatriptan (MAXALT-ENGINEERING DOCUMENTATION SPECIALIST) 10 mg disintegrating tablet Take 1 tablet (10 mg) by mouth as directed. May repeat in 2 hours if needed - albuterol HFA (VENTOLIN HFA) 90 mcg (more content not included)... [facility] ANASTASIA HELLER ([id number]) 1970 F Date Time Provider Department 11/14/24 SHAUNA BELLO INTWS During your visit today, we recorded the following information about you: Sundeep Domínguez APRN.CNP 11/14/2024 7:19 AM Signed Please send order for air conditioner to patient or [employer] company. Thanks Maryjo Hawk LPN 11/14/2024 10:42 AM Signed Script has been mailed to patient's home address. Allergies As of Date: 11/14/2024 Noted Allergy Reaction REGLAN (METOCLOPRAMIDE HCL) 09/22/2009 Comments: [place] like coming out of her skin; felt like was was more nauseated the next day ZOLOFT (SERTRALINE HCL) 08/11/2007 5 - Intolerance 6 - Diarrhea Comments: Forgetfullness; did not help with somnolence Date Reviewed: 11/13/2024 Reviewed by: Sundeep Domínguez APRN.EXTRACT WRINGER - Fully Assessed Primary Visit Diagnosis:Primary hypertension [I10] Other Visit Diagnoses:Chronic bronchitis, unspecified chronic bronchitis type (HCC) [J42] Panic disorder without agoraphobia [F41.0] BMI 60.0-69.9, adult ([facility]) [Z68.44] Order(s):DME SUPPLY OR ACCESSORY, NOS [[id number]] Order #: [id number] Prescriptions as of 11/14/2024 - sulfamethoxazole-trim ethoprim (BACTRIM DS) 800-160 mg per tablet Take 1 tablet by mouth two times a day for 7 days. - phenazopyridine (PYRIDIUM) 200 mg tablet Take 1 tablet by mouth three times a day before meals. - spironolactone (ALDACTONE) 25 mg tablet Take 1 tablet by mouth once daily. - acyclovir (ZOVIRAX) 5 % crea Apply to affected area five times a day. - Blood Pressure Monitor 1 Each two times a day as needed (for BP management). - blood sugar diagnostic (BLOOD GLUCOSE TEST) test strip Test blood sugar(s) 1 times daily. Dx: Other DM Code R73.9 Insulin: No - Lancets Use with blood glucose test once daily. R73.9 Hyperglycemia - cyanocobalamin (VITAMIN B-12) 1,000 mcg tab Take 1 tablet by mouth once daily. - atenolol (TENORMIN) 50 mg tablet Take 1 tablet by mouth once daily. - Cholecalciferol, Vitamin D3, 125 mcg (5,000 unit) cap Take 1 capsule by mouth once daily. - rizatriptan (MAXALT-ENGINEERING DOCUMENTATION SPECIALIST) 10 mg disintegrating tablet Take 1 tablet (10 mg) by mouth as directed. May repeat in 2 hours if needed - albuterol HFA (VENTOLIN HFA) 90 mcg/actuation inhaler Inhale 2 Puffs as instructed every 4 hours as needed for wheezing/shortness of breath. - ibuprofen (MOTRIN) 600 mg tablet Take 1 tablet by mouth every 8 hours as needed for pain (for migraines). - meloxicam (MOBIC) 7.5 mg tablet Take 1 tablet by mouth once daily as needed for pain (for knee pain). With food. Do not take on days you take the ibuprofen. Problem List As Of Date 11/14/2024 Noted Resolved Osteoarthritis of multiple joints [M15.9] 03/11/2005 SCIATICA [M54.30] 03/11/2005 Migraine without aura [G43.009] 03/23/2005 ESOPHAGEAL REFLUX [K21.9] 03/23/2005 PANIC DISORDER WITHOUT AGORAPHOBIA [F41.0] 08/05/2006 Allergic rhinitis [J30.9] 08/11/2022 Excessive daytime sleepiness [G47.19] Neck pain [M54.2] 08/11/2022 Kidney stones [N20.0] 07/24/2016 Calculus of ureter [N20.1] 08/04/2016 Gastroesophageal reflux disease [K21.9] 08/04/2016 BMI 60.0-69.9, adult (HCC) [Z68.44] 08/04/2016 Chronic bronchitis (HCC) [J42] 08/04/2016 Primary hypertension [I10] 08/11/2022 Encounter Status:Closed by SUNDEEP DOMÍNGUEZ on 11/14/24 [facility] Bacteria Ur Culton Bacteria identified Cx Nom (U) ORGANISM ID: 1 >=100,000 CFU/ml Escherichia coli ORGANISM ID: 1 (ESCHERICHIA COLI) ------ ANTIBIOTIC INTERPRETATION ALEX STATUS REFERENCE RANGE ------ Ampicillin S <=2 F Susceptible <=8 , Intermediate >8 , Resistant >16 Cefazolin S <=4 F Susceptible 0-16 , Intermediate <0 or >16 , Resistant >16 For uncomplicated urinary tract infections, cefazolin results can be used to predict susceptibility or resistance to cephalexin. Ceftriaxone S <=1 F Susceptible <=1 , Intermediate >1 , Resistant >=4 Cefepime S <=1 F Susceptible <=2 , Susceptible-Dose Dependent >2 , Resistant >=16 Ertapenem S <=0.5 F Susceptible <=0.5 , Intermediate >.5 , Resistant >1 Meropenem S <=0.25 F Susceptible <=1 , Intermediate >1 , Resistant >2 Ampicillin/Sulbact S <=2 F Susceptible <=8 , Intermediate >8 , Resistant >16 Piperacillin/Tazobac S <=4 F Susceptible <16 , Susceptible-Dose Dependent >=16 , Resistant >=32 Gentamicin S <=1 F Susceptible <=2 , Intermediate >2 , Resistant >=8 Tobramycin S <=1 F Susceptible <4 , Intermediate >=4 , Resistant >=8 Trimeth sulfameth R >=320 F Susceptible <=40 , Resistant >40 Ciprofloxacin R >=4 F Susceptible <0.5 , Intermediate >=.5 , Resistant >=1 Nitrofurantoin S <=16 F Susceptible <=32 , Intermediate >32 , Resistant >64 Abnormal [facility] Comment on above: Performed By: #### 6 30-4 ####[facility] [id number] [address] OF [facility] CNOVon 11-13-2024 CNOV Office Visit (INTMWS ) ANASTASIA HELLER ([id number]) 1970 F Date Time Provider Department 11/13/24 2:00 PM SUNDEEP DOMÍNGUEZ INTDhavalWS During your visit today, we recorded the following information about you: Pulse Blood pressure Weight 75/minute 167/90 144.2 kg Sundeep Domínguez APRN.EXTRACT WRINGER 11/13/2024 3:43 PM Signed SUBJECTIVE Anastasia Heller is a 54 year old female here today for a check up on her medical problems. Chief Complaint Patient presents with: F/U 3 Month Urinary Frequency: on going for about 3 days HPI Anastasia Heller is a 54 year old female. She is an established patient of Shauna Bello MD. Here today for follow up, also with concerns of a possible UTI. Symptoms started 3-4 days ago. Feeling dysuria, low abdominal pressure. Otherwise feeling okay, notes she wants to work on weight loss. Compliant with her medications. Blood pressure is elevated today. Feels like she has generalized swelling. Her medications were reviewed today and her list is now up to date. Medications Current Outpatient Medications Medication Sig acyclovir (ZOVIRAX) 5 % crea Apply to affected area five times a day. cyanocobalamin (VITAMIN B-12) 1,000 mcg tab Take 1 tablet by mouth once daily. atenolol (TENORMIN) 50 mg tablet Take 1 tablet by mouth once daily. Cholecalciferol, Vitamin D3, 125 mcg (5,000 unit) cap Take 1 capsule by mouth once daily. rizatriptan (MAXALT-ENGINEERING DOCUMENTATION SPECIALIST) 10 mg disintegrating tablet Take 1 tablet (10 mg) by mouth as directed. May repeat in 2 hours if needed albuterol HFA (VENTOLIN HFA) 90 mcg/actuation inhaler Inhale 2 Puffs as instructed every 4 hours as needed for wheezing/shortness of breath. ibuprofen (MOTRIN) 600 mg tablet Take 1 tablet by mouth every 8 hours as needed for pain (for migraines). meloxicam (MOBIC) 7.5 mg tablet Take 1 tablet by mouth once daily as needed for pain (for knee pain). With food. Do not take on days you take the ibuprofen. sulfamethoxazole-trim ethoprim (BACTRIM DS) 800-160 mg per tablet Take 1 tablet by mouth two times a day for 7 days. phenazopyridine (PYRIDIUM) 200 mg tablet Take 1 tablet by mouth three times a day before meals. spironolactone (ALDACTONE) 25 mg tablet Take 1 tablet by mouth once daily. Blood Pressure Monitor 1 Each two times a day as needed (for BP management). blood sugar diagnostic (BLOOD GLUCOSE TEST) test strip Test blood sugar(s) 1 times daily. Dx: Other DM Code R73.9 Insulin: No Lancets Use with blood glucose test once daily. R73.9 Hyperglycemia No current facility-administered medications for this visit. ALLERGIES Allergen Reactions Reglan [Metoclopram* Calhoun like coming out of her skin; felt like was was more nauseated the next day Zoloft [Sertraline * Intolerance, Diarrhea Forgetfullness; did not help with somnolence ACTIVE PROBLEM LIST Primary Hypertension - 08/11/2022 Calculus of Ureter - 08/04/2016 Gastroesophageal Reflux Disease - 08/04/2016 Bmi 60.0-69.9, Adult ([facility]) - 08/04/2016 Chronic Bronchitis ([facility]) - 08/04/2016 Kidney Stones - 07/24/2016 Excessive Daytime Sleepiness Panic Disorder Without Agoraphobia - 08/05/2006 Migraine Without Aura - 03/23/2005 Esophageal Reflux - 03/23/2005 Osteoarthritis of Multiple Joints - 03/11/2005 Sciatica - 03/11/2005 Social History Tobacco Use Smoking status: Never Smokeless tobacco: Never Vaping Use Vaping status: Never Used Substance Use Topics Alcohol use: No Drug use: Never Review of Systems Respiratory: Negative. Cardiovascular: Positive for leg swelling. Negative for chest pain and palpitations. Genitourinary: Positive for dysuria. OBJECTIVE BP 167/90 Pulse 75 Wt 317 lb 14.5 oz (144.2kg) SpO2 97% Physical Exam Vitals and nursing note reviewed. Constitutional: General: She is awake. She is not in acute distress. Appearance: Normal appearance. She is well-developed and well-groomed. She is not ill-appearing, toxic-appearing or diaphoretic. HENT: Head: Normocephalic. Right Ear: External ear normal. Left Ear: External ear normal. Nose: Nose normal. Eyes: General: Vision grossly intact. Conjunctiva/sclera: Conjunctivae normal. Pupils: Pupils are equal, round, and reactive to light. Neck: Vascular: No JVD. Trachea: Trachea normal. Cardiovascular: Rate and Rhythm: Normal rate and regular rhythm. Pulses: Normal pulses. Heart sounds: Normal heart sounds. No murmur heard. Pulmonary: Effort: Pulmonary effort is normal. No accessory muscle usage, prolonged expiration or respiratory distress. Breath sounds: Normal breath sounds. Musculoskeletal: Cervical back: Neck supple. Right lower leg: Edema present. Left lower leg: Edema present. Skin: General: Skin is warm and dry. Capillary Refill: Capillary refill takes less than 2 seconds. Neurological: General: No focal deficit present. Mental Status: She is alert a (more content not included)... Normal [facility] UA DIP, URINE (POC)on 2024 BILIRUBIN UA (POCT) Negative Negative [facility] CLARITY UA (POCT) Clear [facility] COLOR UA (POCT) Yellow [facility] GLUCOSE UA (POCT) Negative Negative mg/dL [facility] Hemoglobin Ql (U) Moderate Abnormal Negative [facility] Interpretation and review of laboratory results Abnormal [facility] KETONE UA (POCT) Negative Negative mg/dL [facility] LEUKOCYTES UA (POCT) Large Abnormal Negative [facility] NITRITE UA (POCT) Negative Negative [facility] PH UA (POCT) 6.5 4.5 - 8.[address] [facility] Protein Ql (U) Trace Abnormal Negative mg/dL [facility] SPECIFIC GRAVITY UA (POCT) 1.015 1.005 - 1.[address] [facility] UROBILINOGEN UA (POCT) 0.2 Normal E.U./dL [facility] Location:[address], [address] [place] [address] POINT OF CARE [facility] 10-18-2024 CNPN Telephone (INTMWS) ANASTASIA HELLER ([id number]) 1970 F Date Time Provider Department 10/18/24 SHAUNA BELLO INTMWS During your visit today, we recorded the following information about you: Jenni Holcomb RN 10/18/2024 11:58 AM Signed Patient calls and states that she had labs done yesterday. Patient is asking about the results to the labs. Latest Ref Rng 10/17/2024 Cholesterol, Total <200 mg/dL 230 (H) Triglyceride <150 mg/dL 197 (H) HDL Cholesterol >39 mg/dL 41 LDL Cholesterol, Calculated <100 mg/dL 153 (H) Non HDL Cholesterol <130 mg/dL 189 (H) VLDL Cholesterol <30 mg/dL 37 (H) TC:HDL Ratio <5.10 5.61 (H) LDL:HDL Ratio <2.54 3.73 (H) Fasting Time hrs 12 Latest Ref Rng 10/17/2024 Protein, Total 6.3 - 8.0 g/dL 7.6 Albumin 3.9 - 4.9 g/dL 3.9 Calcium 8.5 - 10.2 mg/dL 9.5 Bilirubin, Total 0.2 - 1.3 mg/dL 0.5 Alkaline Phosphatase 34 - 123 U/L 94 AST 13 - 35 U/L 35 ALT 7 - 38 U/L 32 Glucose 74 - 99 mg/dL 141 (H) BUN 7 - 21 mg/dL 11 Creatinine 0.58 - 0.96 mg/dL 0.64 Sodium 136 - 144 mmol/L 141 Potassium 3.7 - 5.1 mmol/L 4.2 Chloride 98 - 107 mmol/L 104 CO2 22 - 30 mmol/L 25 Anion Gap 8 - 15 mmol/L 12 eGFR >=60 mL/min/1.73m? 104 Latest Ref Rng 10/17/2024 Hemoglobin A1C 4.3 - 5.6 % 6.0 (H) Estimated Average Glucose mg/dL 126 Latest Ref Rn 10/17/2024 Vitamin D 25 Hydroxy 31.0 - 80.0 ng/mL 14.4 (L) Please review and advise, SHANNON Velarde Beth, LPN 10/19/2024 10:50 AM Signed Patient calling back, aware PCP is out of the office until 10/30. Requesting note to go to Sundeep Domínguez [employer] to review please. Sundeep Domínguez, ALISE.EXTRACT WRINGER 10/20/2024 10:07 AM Signed We can certainly go over these in more detail with her upcoming appointment. Labs show low vitamin D, sugars is elevated but lower than prior labs, cholesterol is improving. Varghese Aleman RN 10/20/2024 11:49 AM Signed Patient returns call and provider message reviewed with verbalized understanding. Varghese Aleman RN Allergies As of Date: 10/18/2024 Noted Allergy Reaction REGLAN (METOCLOPRAMIDE HCL) 09/22/2009 Comments: [place] like coming out of her skin; felt like was was more nauseated the next day ZOLOFT (SERTRALINE HCL) 08/11/2007 5 - Intolerance 6 - Diarrhea Comments: Forgetfullness; did not help with somnolence Date Reviewed: 08/07/2024 Reviewed by: Jenae Mcleod MA - Fully Assessed Reason for Visit: Results [95] Prescriptions as of 10/20/2024 - acyclovir (ZOVIRAX) 5 % crea Apply to affected area five times a day. - Blood Pressure Monitor 1 Each two times a day as needed (for BP management). - blood sugar diagnostic (BLOOD GLUCOSE TEST) test strip Test blood sugar(s) 1 times daily. Dx: Other DM Code R73.9 Insulin: No - Lancets Use with blood glucose test once daily. R73.9 Hyperglycemia - cyanocobalamin (VITAMIN B-12) 1,000 mcg tab Take 1 tablet by mouth once daily. - atenolol (TENORMIN) 50 mg tablet Take 1 tablet by mouth once daily. - Cholecalciferol, Vitamin D3, 125 mcg (5,000 unit) cap Take 1 capsule by mouth once daily. - rizatriptan (MAXALT-ENGINEERING DOCUMENTATION SPECIALIST) 10 mg disintegrating tablet Take 1 tablet (10 mg) by mouth as directed. May repeat in 2 hours if needed - albuterol HFA (VENTOLIN HFA) 90 mcg/actuation inhaler Inhale 2 Puffs as instructed every 4 hours as needed for wheezing/shortness of breath. - ibuprofen (MOTRIN) 600 mg tablet Take 1 tablet by mouth every 8 hours as needed for pain (for migraines). - meloxicam (MOBIC) 7.5 mg tablet Take 1 tablet by mouth once daily as needed for pain (for knee pain). With food. Do not take on days you take the ibuprofen. Problem List As Of Date 10/18/2024 Noted Resolved Osteoarthritis of multiple joints [M15.9] 03/11/2005 SCIATICA [M54.30] 03/11/2005 Migraine without aura [G43.009] 03/23/2005 ESOPHAGEAL REFLUX [K21.9] 03/23/2005 PANIC DISORDER WITHOUT AGORAPHOBIA [F41.0] 08/05/2006 Allergic rhinitis [J30.9] 08/11/2022 Excessive daytime sleepiness [G47.19] Neck pain [M54.2] 08/11/2022 Kidney stones [N20.0] 07/24/2016 Calculus of ureter [N20.1] 08/04/2016 Gastroesophageal reflux disease [K21.9] 08/04/2016 BMI 60.0-69.9, adult (HCC) [Z68.44] 08/04/2016 Chronic bronchitis (HCC) [J42] 08/04/2016 Primary hypertension [I10] 08/11/2022 Encounter Status:Closed by VARGHESE ALEMAN on 10/20/24 Normal [facility] 25(OH)D3 SerPl-ncon 2024 25-hydroxyvitamin D3 [Mass/Vol] 14.4 ng/mL Low 31.0-80.0 [facility] Comment on above: Order Comment: Speci men Type: BLOOD SPECIMENOrdering Facility: [facility] Address: [address] [place] [address] Result Comment: Clas sification of 25 [place] Vitamin D status: Deficiency/Insufficiency: < or = 30 ng/ml. Sufficiency/Optimal Levels: 31-80 ng/mL Toxicity: > 100 ng/mL. Test performed by chemiluminescent immunoassay. Performed By: #### 1 989-3 ####[facility] LABIA [id number] [place] [address] [place] Comprehensive metabolic 2000 panelon 10-17-2024 Albumin [Mass/Vol] 3.9 g/dL Normal 3.9-4.9 [facility] Comment on above: Order Comment: Speci men Type: BLOOD SPECIMENOrdering Facility: [facility] Address: [address] [place] [address] Performed By: #### 2 4331-1, 33859-6 ####[facility] [id number] [place] [address] [place] ALP [Catalytic activity/Vol] 94 U/L Normal 34-123 [facility] Comment on above: Order Comment: Speci men Type: BLOOD SPECIMENOrdering Facility: [facility] Address: [address] [place] [address] Performed By: #### 2 4331-1, 18198-3 ####[facility] LABCLIA [id number] [facility] [address] [place] [address] [place] ALT [Catalytic activity/Vol] 32 U/L Normal 7-38 [facility] Comment on above: Order Comment: Speci men Type: BLOOD SPECIMENOrdering Facility: [facility] Address: [address] [place] [address] Performed By: #### 2 4331-1, ####[facility] LABCLIA [id number] [facility] [address] [place] [address] [place] Anion gap [Moles/Vol] 12 mmol/L Normal 8-15 [facility] Comment on above: Order Comment: Speci men Type: BLOOD SPECIMENOrdering Facility: [facility] Address: [address] [place] [address] Performed By: #### 2 4331-1, 20874-1 ####[facility] LABCLIA [id number] [facility] [address] [place] [address] [place] AST [Catalytic activity/Vol] 35 U/L Normal 13-35 [facility] Comment on above: Order Comment: Speci men Type: BLOOD SPECIMENOrdering Facility: [facility] Address: [address] [place], [place] [id number] Performed By: #### 2 4331-1, 38719-2 ####[facility] LABCLIA [id number] [facility] [address] [place] [address] [place] Bilirubin [Mass/Vol] 0.5 mg/dL Normal 0.2-1.3 [facility] Comment on above: Order Comment: Speci men Type: BLOOD SPECIMENOrdering Facility: [facility] Address: [address] [place], [place] [id number] Performed By: #### 2 4331-1, 02542-0 ####[facility] LABCLIA [id number] [facility] [address] [place] [address] [place] Calcium [Mass/Vol] 9.5 mg/dL Normal 8.5-10.2 [facility] Comment on above: Order Comment: Speci men Type: BLOOD SPECIMENOrdering Facility: [facility] Address: [address] [place] [address] Performed By: #### 2 4331-1, ####[facility] LABCLIA [id number] [facility] [address] [place] [address] [place] Chloride [Moles/Vol] 104 mmol/L Normal 98-107 [facility] Comment on above: Order Comment: Speci men Type: BLOOD SPECIMENOrdering Facility: [facility] Address: [address] [place] [address] Performed By: #### 2 4331-1, ####[facility] LABCLIA [id number] [place] [id number] [place] CO2 [Moles/Vol] 25 mmol/L Normal 22-30 [facility] Comment on above: Order Comment: Speci men Type: BLOOD SPECIMENOrdering Facility: [facility] Address: [address] [place] [address] Performed By: #### 2 4331-1, ####[facility] LABCLIA [id number] [facility] [address] [place] [address] [place] Creatinine [Mass/Vol] 0.64 mg/dL Normal 0.58-0.96 [facility] Comment on above: Order Comment: Speci men Type: BLOOD SPECIMENOrdering Facility: [facility] Address: [address] [place] [address] Performed By: #### 2 4331-1, ####[facility] LABCLIA [id number] [facility] [id number] [address] [place] Creatinine and Glomerular filtration rate.predicted panel (S/P/Bld) 104 mL/min/1.73m??? Normal >=60 [facility] Comment on above: Order Comment: Nicole azar Type: BLOOD SPECIMENOrdering Facility: [facility] Address: [address] [place] [address] Result Comment: Ally mated Glomerular Filtration Rate (eGFR) is calculated using the 2020 CKD-EPI creatinine equation. This equation utilizes serum creatinine, sex, and age as parameters. The creatinine assay has traceable calibration to isotope dilution-mass spectrometry. Refer to KDIGO guidelines for clinical interpretation. In patients with unstable renal function, e.g. those with acute kidney injury, the eGFR may not accurately reflect actual GFR. Performed By: #### 2 4331-1, 92873-1 ####[facility] [id number] [place] [address] [place] Glucose [Mass/Vol] 141 mg/dL High 74-99 [facility] Comment on above: Order Comment: Nicole azar Type: BLOOD SPECIMENOrdering Facility: [facility] Address: [address] [place] [address] Result Comment: The [place] Diabetes Association (ADA) provides guidance for cutoff values for fasting glucose and random glucose. The ADA defines fasting as no caloric intake for at least 8 hours. Fasting plasma glucose results between 100 to 125 mg/dL indicate increased risk for diabetes (prediabetes). Fasting plasma glucose results greater than or equal to 126 mg/dL meet the criteria for diagnosis of diabetes. In the absence of unequivocal hyperglycemia, results should be confirmed by repeat testing. In a patient with classic symptoms of hyperglycemia or hyperglycemic crisis, random plasma glucose results greater than or equal to 200 mg/dL meet the criteria for diagnosis of diabetes. Reference: Standards of Medical Care in Diabetes 2016, [place] Diabetes Association. Diabetes Care. 2016.39(Suppl 1). Performed By: #### 2 4331-1, 53328-1 ####[facility] [id number] [place] [id number] [place] Potassium [Moles/Vol] 4.2 mmol/L Normal 3.7-5.1 [facility] Comment on above: Order Comment: Nicole azar Type: BLOOD SPECIMENOrdering Facility: [facility] Address: [address] [place] [id number] Performed By: #### 2 4331-1, 88419-3 ####[facility] LABCLIA [id number] [address] [address] [place] Protein [Mass/Vol] 7.6 g/dL Normal 6.3-8.0 [facility] Comment on above: Order Comment: Speci men Type: BLOOD SPECIMENOrdering Facility: [facility] Address: [address] [place] [address] Performed By: #### 2 4331-1, 80931-4 ####[facility] LABIA [id number] [place] [address] [place] Sodium [Moles/Vol] 141 mmol/L Normal 136-144 [facility] Comment on above: Order Comment: Speci men Type: BLOOD SPECIMENOrdering Facility: [facility] Address: [address] [place] [address] Performed By: #### 2 4331-1, 95282-4 ####[facility] LABIA [id number] [place] [address] [place] Urea nitrogen [Mass/Vol] 11 mg/dL Normal 7-21 [facility] Comment on above: Order Comment: Speci men Type: BLOOD SPECIMENOrdering Facility: [facility] Address: [address] [place] [address] Performed By: #### 2 4331-1, 12457-9 ####[facility] LABIA [id number] [address] [place] [address] [place] HbA1c (Bld)on 10-17-2024 Average glucose Estimated from glycated hemoglobin (Bld) [Mass/Vol] 126 mg/dL Normal [facility] Comment on above: Order Comment: Speci men Type: BLOOD SPECIMENOrdering Facility: [facility] Address: [address] [place], [place] [id number] Result Comment: eAG: (Estimated average glucose) is a calculated value from HgbA1c and is member service representative of the average blood glucose level in the last 2-3 month period. Performed By: #### 5 5454-3 ####[facility] LABCLIA [id number] [address] [address] [place] HbA1c (Bld) [Mass fraction] 6.0 % High 4.3-5.6 [facility] Comment on above: Order Comment: Nicole azra Type: BLOOD SPECIMENOrdering Facility: [facility] Address: [address] [place] [address] Result Comment: [place] Diabetes Association guidelines indicate that patients with HgbA1c in the range 5.7-6.4% are at increased risk for development of diabetes, and intervention by lifestyle modification may be beneficial. HgbA1c greater or equal to 6.5% is considered diagnostic of diabetes. Performed By: #### 5 5454-3 ####[facility] LABIA [id number] [place] [address] [place] Lipid 1996 panelon 5 Cholesterol [Mass/Vol] 230 mg/dL High <200 [facility] Comment on above: Order Comment: Nicole azar Type: BLOOD SPECIMENOrdering Facility: [facility] Address: [address] [place] [address] Result Comment: <200 mg/dL, Desirable 200-239 mg/dL, Borderline high >239 mg/dL, High Performed By: #### 2 4331-1, 69676-0 ####[facility] LABIA [id number] [address] [place] Cholesterol in HDL [Mass/Vol] 41 mg/dL Normal >39 [facility] Comment on above: Order Comment: Nicole azar Type: BLOOD SPECIMENOrdering Facility: [facility] Address: [address] [place] [address] Result Comment: 40-5 9 mg/dL, Acceptable >59 mg/dL, High: Negative risk factor for coronary heart disease <40 mg/dL, Low: Positive risk factor for coronary heart disease Performed By: #### 2 4331-1, ####[facility] LABCLIA [id number] [address] [address] [place] Cholesterol in LDL [Mass/Vol] 153 mg/dL High <100 [facility] Comment on above: Order Comment: Speci men Type: BLOOD SPECIMENOrdering Facility: [facility] Address: [address] [place] [address] Result Comment: <100 mg/dL, Optimal 100-129 mg/dL, Near optimal/above optimal 130-159 mg/dL, Borderline high 160-189 mg/dL, High >189 mg/dL, Very high Secondary prevention optimal LDL Cholesterol levels are recommended to be <70 mg/dL LDL cholesterol is calculated using the Glynn-NIH equation. Performed By: #### 2 433-, ####[facility] LABIA [id number] [place] [address] [place] Cholesterol in LDL/Cholesterol in HDL [Mass ratio] 3.73 {ratio} High <2.54 [facility] Comment on above: Order Comment: Speci men Type: BLOOD SPECIMENOrdering Facility: [facility] Address: [address] [place] [address] Result Comment: Shelli denise: 1. National Cholesterol Education Program ATP III Guideline At-A-Glance Quick Desk Reference: National Heart, Lung, and Blood [place]. National Institutes of Health. 2001: NIH Publication No. 01-3305. 2. An International Atherosclerosis Society position paper: global recommendations for the management of dyslipidemia: executive summary, Atherosclerosis. 2014: 232(2):410-413. Performed By: #### 2 4331-1, ####[facility] LABIA [id number] [place] [id number] [place] Cholesterol in VLDL [Mass/Vol] 37 mg/dL High <30 [facility] Comment on above: Order Comment: Speci men Type: BLOOD SPECIMENOrdering Facility: [facility] Address: [address] [place] [address] Performed By: #### 2 4331-1, ####[facility] LABCLIA [id number] [address] [address] [place] Cholesterol non HDL [Mass/Vol] 189 mg/dL High <130 [facility] Comment on above: Order Comment: Speci men Type: BLOOD SPECIMENOrdering Facility: [facility] Address: [address] [place] [id number] Result Comment: <130 mg/dL, Optimal 130-159 mg/dL, Near optimal/above optimal 160-189 mg/dL, Borderline high 190-219 mg/dL, High >219 mg/dL, Very high Secondary prevention optimal non HDL Cholesterol levels are recommended to be <100 mg/dL Performed By: #### 2 4331-1, ####[facility] LABCLIA [id number] [address] [address] [place] Cholesterol.total/Cho lesterol in HDL [Mass ratio] 5.61 {ratio} High <5.10 [facility] Comment on above: Order Comment: Speci men Type: BLOOD SPECIMENOrdering Facility: [facility] Address: [address] [place] [id number] Performed By: #### 2 4331-, ####[facility] LABCLIA [id number] [address] [address] [place] FASTING TIME 12 hrs Normal [facility] Comment on above: Order Comment: Speci men Type: BLOOD SPECIMENOrdering Facility: [facility] Address: [address] [place] [address] Performed By: #### 2 4331-1, ####[facility] LABCLIA [id number] [address] [address] [place] Triglyceride [Mass/Vol] 197 mg/dL High <150 [facility] Comment on above: Order Comment: Speci men Type: BLOOD SPECIMENOrdering Facility: [facility] Address: [address] [place], [place] [id number] Result Comment: <150 mg/dL, Normal 150-199 mg/dL, Borderline high 200-499 mg/dL, High >499 mg/dL, Very high Performed By: #### 2 4331-1, 72904-5 ####[facility] BENJAMÍN [id number] ENDER MCGOVERN [address] OF [facility] CNOVon 08-07-2024 CNOV Office Visit (INTMWS ) ANASTASIA HELLER ([id number]) 1970 F Date Time Provider Department 08/07/24 1:20 PM SHAUNA BELLO INTMWS During your visit today, we recorded the following information about you: Pulse Blood pressure Weight Height 72/minute 145/90 141.7 kg 1.511 m Shauna Bello MD 02/23/2025 9:21 AM Addendum This note was created using Delta IDriter. Subjective Anastasia Heller is a 54 year old female. Patient presents with: Follow Up SUBJECTIVE: Anastasia Heller is a 54 year old year old lady here today for 3 to 6month follow up appointment for review of medical conditions. Anastasia is a 54-year-old female with a history of HTN, elevated hemoglobin A1c, and hyperlipidemia, presenting for a follow-up visit. Anastasia was last seen in March and has since been focusing on weight loss through portion control and increased water intake. She reports a decrease in weight since her last visit. She is currently taking vitamin D 5,000 IU daily and vitamin B, and requests refills for both. She is also taking atenolol 25 mg daily for blood pressure management and requests a prescription for a blood pressure cuff and glucose monitor for home use. She denies a current diagnosis of diabetes. She reports occasional shakiness in the mornings, which she does not attribute to elevated blood sugar levels. She also experiences dyspnea with walking short distances and has applied for disability due to this and arthritis in her left knee. She notes swelling in her left foot, particularly at night and after increased activity, which has been ongoing for a couple of years. She denies similar swelling in her right foot. 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 She also requests a refill for Ativan, which she uses as needed for anxiety attacks, particularly when alone at home. She has recently started seeing a therapist to address these issues. PAST MEDICAL HISTORY Diagnosis Date Allergic rhinitis, cause unspecified Calculus of kidney Daytime sleepiness Endometrial hyperplasia, unspecified 05/04/06 Esophageal reflux 03/23/2005 Generalized osteoarthrosis, unspecified site Migraine without aura, without mention of intractable migraine without mention of status migrainosus 03/23/2005 Panic disorder without agoraphobia Sciatica Current Outpatient Medications Medication Sig acyclovir (ZOVIRAX) 5 % crea Apply to affected area five times a day. cyanocobalamin (VITAMIN B-12) 1,000 mcg tab Take 1 tablet by mouth once daily. Cholecalciferol, Vitamin D3, 125 mcg (5,000 unit) cap Take 1 capsule by mouth once daily. rizatriptan (MAXALT-ENGINEERING DOCUMENTATION SPECIALIST) 10 mg disintegrating tablet Take 1 tablet (10 mg) by mouth as directed. May repeat in 2 hours if needed albuterol HFA (VENTOLIN HFA) 90 mcg/actuation inhaler Inhale 2 Puffs as instructed every 4 hours as needed for wheezing/shortness of breath. atenolol (TENORMIN) 25 mg tablet Take 1 tablet by mouth once daily. ibuprofen (MOTRIN) 600 mg tablet Take 1 tablet by mouth every 8 hours as needed for pain (for migraines). meloxicam (MOBIC) 7.5 mg tablet Take 1 tablet by mouth once daily as needed for pain (for knee pain). With food. Do not take on days you take the ibuprofen. No current facility-administered medications for this visit. Review of Systems Objective BP 172/82 Pulse 72 Ht 151.1 cm (4' 11.5) Wt (!) 141.7 kg (312 lb 6.3 oz) BMI 62.04 kg/m? Last 5 Encounter Wt Readings: Date: Wt: 08/07/2024 141.7 kg (312 lb 6.3 oz) 04/12/2024 146.5 kg (322 lb 15.6 oz) 07/26/2023 147 kg (324 lb) 08/11/2022 141.5 kg (312 lb) 05/03/2022 143.3 kg (316 lb) No waist measurement recorded Estimated body mass index is 62.04 kg/m? as calculated from the following: Height as of this encounter: 151.1 cm (4' 11.5). Weight as of this encounter: 141.7 kg (312 lb 6.3 oz). Last 5 Encounter BP Readings: Date: BP: 08/07/2024 172/82 04/12/2024 145/84[BP Calixto Average[ 07/26/2023 136/84 08/11/2022 160/98 05/03/2022 146/88 Physical Exam Constitutional: Appearance: Normal appearance. She is obese. HENT: Head: Normocephalic. Eyes: Conjunctiva/sclera: Conjunctivae normal. Cardiovascular: Rate and Rhythm: Normal rate and regular rhythm. Heart sounds: Normal heart sounds. Pulmonary: Effort: Pulmonary effort is normal. Breath sounds: Normal breath sounds. Musculoskeletal: Right lower leg: No edema. Left lower leg: No edema. Skin: General: Skin is warm and dry. Neurological: General: No focal deficit present. Mental Status: She is alert and oriented to person, place, and time. Psychiatric: Attention and Perception: Attention and perception normal. Mood and Affect: Mood and affect normal. Speech: Speech normal. Behavior: Behavior normal. Thought Content: Thought content normal. (more content not included)... Normal [facility] Emergency Department Summary on 06-04-2024 Emergency Department Summary [facility] Medical Records Department [address] [place] [address] Emergency Department Summary 06/04/24 MR#: [id number] Acct: [id number] Name: ANASTASIA HELLER Rep #: [id number] : 1970 53 From: Abdoulaye Morales MD PCP: Dr. Shauna Bello MD Status:DEP ER Location: ED HPI History of Present Illness Chief Complaint: General Illness Narrative Narrative: 53-year-old female status over the last several runny nose, sore throat, headache similar to her history of migraines, nausea and vomiting, and a painful lump under her right ear. She did not have her Phenergan prescription so she was unable to keep down Maxalt which she takes for migraines. She denies chest pain, shortness of breath, abdominal pain or diarrhea. No focal motor or sensory changes. PFSH PFS Medical History Migraines Home Medications ???Medication ???Instructions ???Recorded ???Last Taken ???Type amoxicillin 875 mg-potassium 1 tab PO BID 7 days #14 tabs 06/04/24 Unknown Rx clavulanate 125 mg tablet promethazine 25 mg tablet 25 mg PO TID PRN nausea and 06/04/24 Unknown Rx vomiting 5 days #15 tabs Allergy/AdvReac Type Severity Reaction Status Date / Time metoclopramide HCl (From AdvReac Other Verified 06/04/24 10:15 Reglan) sertraline HCl (From Zoloft) AdvReac Other Verified 06/04/24 10:15 Social History Smoking Status: Never smoker ROS ROS ED ROS Narrative Constitutional: Negative for fever, chills. CVS: Negative for chest pain Respiratory: Negative for shortness of breath, cough GI: Positive for nausea, vomiting. Neuro: Positive for headache. EXAM Physical Exam Narrative Exam Narrative: CONST: Patient sitting in no acute distress. EYES: Normal inspection. ENT: Moist mucous membranes and normal posterior oropharynx, nares clear, normal TMs bilaterally. Swelling anteroinferior to right ear likely enlarged parotid gland is tender to touch with no overlying edema, she has similar lump on the left side so this may be her normal anatomy. NECK: Normal inspection. No meningismus. RESP: No respiratory distress, CTAB. CVS: Regular rate and rhythm, no murmur, no gallop. ABD: Soft and nontender, no guarding or rebound, nondistended. SKIN: Color normal, no rash, warm, dry, intact. EXTREMITIES: Normal appearance, no pedal edema. NEURO: Alert and answering questions appropriately. PSYCH: Normal affect. Const Vital Signs: 06/04/24 10:13 06/04/24 10:28 06/04/24 12:12 Temperature 97.8 F Temperature Source Oral Pulse Rate 73 89 Respiratory Rate 18 16 Respiratory Effort Normal Non-Labored Blood Pressure 195/96 H Blood Pressure Mean 129 Pulse Ox 97 99 Oxygen Delivery Method Room Air 06/04/24 12:48 Temperature 98.9 F Temperature Source Pulse Rate 89 Respiratory Rate 16 Respiratory Effort Blood Pressure 138/99 H Blood Pressure Mean 112 Pulse Ox 99 Oxygen Delivery Method Physical Exam Const Vital Signs: 06/04/24 10:13 06/04/24 10:28 06/04/24 12:12 Temperature 97.8 F Temperature Source Oral Pulse Rate 73 89 Respiratory Rate 18 16 Respiratory Effort Normal Non-Labored Blood Pressure 195/96 H Blood Pressure Mean 129 Pulse Ox 97 99 Oxygen Delivery Method Room Air 06/04/24 12:48 Temperature 98.9 F Temperature Source Pulse Rate 89 Respiratory Rate 16 Respiratory Effort Blood Pressure 138/99 H Blood Pressure Mean 112 Pulse Ox 99 Oxygen Delivery Method MDM MDM MDM Narrative Medical decision making narrative: Differential: Viral URI, parotitis, otitis media, mastoiditis 53-year-old female was evaluated for multiple complaints. She has a painful lump under her right ear/upper neck that is consistent with parotitis. There is no overlying erythema. She has no signs of otitis media, externa, or mastoiditis. Airways patent. She also complains of an intractable migraine and could not keep her Maxalt down because she was out of her Phenergan prescription. Her migraine feels similar to previous. No neurological symptoms. She reports normal CT brain imaging in the past. She is awake alert in no distress with nonfocal neurological exam so I do not think imaging is indicated. She was treated with Toradol, Zofran, and subcu sumatriptan with improvement. Viral swab for COVID/flu/RSV is negative. She was given Augmentin for parotitis and advised to follow-up with her ENT doctor Herlinda. She was discharged in stable condition. MDM Treatment and Re-Evaluation :: Dr. Morales: I have personally performed a face to face assessment of the patient and have reviewed the DIONNA Note. (more content not included)... Normal [facility] M100.678on 06-04-2024 M100.678 Pending SARS-CoV-2 (COVID 19) Negative INFLUENZA A Negative INFLUENZA B Negative RSV PCR Negative Normal [facility] Comment on above: Performed By: #### M [id number] #### [facility] [address] [place], [address] [facility] 05-10-2024 CNPN Telephone (INTMWS) ANASTASIA HELLER ([id number]) 1970 F Date Time Provider Department 05/10/24 SHAUNA BELLO INTMWS During your visit today, we recorded the following information about you: Dhaval Covington RN 05/10/2024 10:58 AM Signed Pt reports she has had a cold sore on upper lip for 2 days, getting big and painful. Asking if pcp can send Rx for zovirax cream to her pharmacy. Advised pt would need appt in order to get an Rx. Pt states provider always sends Rx to pharmacy without an appt. Please advise patient. Shauna Bello MD 05/11/2024 5:56 PM Signed Follow up if not improving The following approved medication requests have been transmitted electronically. Requested Prescriptions Signed Prescriptions Disp Refills acyclovir (ZOVIRAX) 5 % crea 5 g 0 Sig: Apply to affected area five times a day. Authorizing Provider: SHAUNA BELLO MD Allergies As of Date: 05/10/2024 Noted Allergy Reaction REGLAN (METOCLOPRAMIDE HCL) 09/22/2009 Comments: Calhoun like coming out of her skin; felt like was was more nauseated the next day ZOLOFT (SERTRALINE HCL) 08/11/2007 5 - Intolerance 6 - Diarrhea Comments: Forgetfullness; did not help with somnolence Date Reviewed: 04/12/2024 Reviewed by: Sundeep Domínguez APRN.EXTRACT WRINGER - Fully Assessed Reason for Visit: Patient Question [1477] Primary Visit Diagnosis:Cold sore [B00.1] Order(s):acyclovir (ZOVIRAX) 5 % creaApply to affected area five times a day.Disp: 5 gRfl: 0 Prescriptions as of 05/12/2024 - acyclovir (ZOVIRAX) 5 % crea Apply to affected area five times a day. - cyanocobalamin (VITAMIN B-12) 1,000 mcg tab Take 1 tablet by mouth once daily. - Cholecalciferol, Vitamin D3, 125 mcg (5,000 unit) cap Take 1 capsule by mouth once daily. - rizatriptan (MAXALT-ENGINEERING DOCUMENTATION SPECIALIST) 10 mg disintegrating tablet Take 1 tablet (10 mg) by mouth as directed. May repeat in 2 hours if needed - albuterol HFA (VENTOLIN HFA) 90 mcg/actuation inhaler Inhale 2 Puffs as instructed every 4 hours as needed for wheezing/shortness of breath. - atenolol (TENORMIN) 25 mg tablet Take 1 tablet by mouth once daily. - ibuprofen (MOTRIN) 600 mg tablet Take 1 tablet by mouth every 8 hours as needed for pain (for migraines). - meloxicam (MOBIC) 7.5 mg tablet Take 1 tablet by mouth once daily as needed for pain (for knee pain). With food. Do not take on days you take the ibuprofen. 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 Encounter Status:Closed by GINGER QURESHI on 05/12/24 [facility] 04-28-2024 CNPN Telephone (INTMWS) ANASTASIA HELLER ([id number]) 1970 F Date Time Provider Department 04/28/24 SHAUNA BELLO INTMWS During your visit today, we recorded the following information about you: Varghese Aleman RN 04/28/2024 9:32 AM Signed Patient calls to ask if provider has got a chance to look at results of ECHO from 04/25/2024. Notified pending review of provider. Patient requests a call back at [phone] once provider reviews. SHANNON Frank Liza D, MD 04/28/2024 6:08 PM Signed Echocardiogram showed good heart function and no significant valve problems. Left Ventricle ejection fraction good at 59%. No problem noted. Katie Nicole LPN 04/29/2024 9:50 AM Signed Patient notified of results and provider's instructions. Patient verbalizes understanding. Katie Nicole LPN Allergies As of Date: 04/28/2024 Noted Allergy Reaction REGLAN (METOCLOPRAMIDE HCL) 09/22/2009 Comments: Calhoun like coming out of her skin; felt like was was more nauseated the next day ZOLOFT (SERTRALINE HCL) 08/11/2007 5 - Intolerance 6 - Diarrhea Comments: Forgetfullness; did not help with somnolence Date Reviewed: 04/12/2024 Reviewed by: Catrachita, Sundeep, NANNY BABYSITTER.EXTRACT WRINGER - Fully Assessed Reason for Visit: Results [95] Prescriptions as of 04/29/2024 - cyanocobalamin (VITAMIN B-12) 1,000 mcg tab Take 1 tablet by mouth once daily. - Cholecalciferol, Vitamin D3, 125 mcg (5,000 unit) cap Take 1 capsule by mouth once daily. - rizatriptan (MAXALT-ENGINEERING DOCUMENTATION SPECIALIST) 10 mg disintegrating tablet Take 1 tablet (10 mg) by mouth as directed. May repeat in 2 hours if needed - albuterol HFA (VENTOLIN HFA) 90 mcg/actuation inhaler Inhale 2 Puffs as instructed every 4 hours as needed for wheezing/shortness of breath. - atenolol (TENORMIN) 25 mg tablet Take 1 tablet by mouth once daily. - ibuprofen (MOTRIN) 600 mg tablet Take 1 tablet by mouth every 8 hours as needed for pain (for migraines). - meloxicam (MOBIC) 7.5 mg tablet Take 1 tablet by mouth once daily as needed for pain (for knee pain). With food. Do not take on days you take the ibuprofen. 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] 08/05/2006 Allergic rhinitis [J30.9] 08/11/2022 Excessive daytime sleepiness [G47.19] Neck pain [M54.2] 08/11/2022 Kidney stones [N20.0] 07/24/2016 Calculus of ureter [N20.1] 08/04/2016 Gastroesophageal reflux disease [K21.9] 08/04/2016 BMI 60.0-69.9, adult (HCC) [Z68.44] 08/04/2016 Chronic bronchitis (HCC) [J42] 08/04/2016 Primary hypertension [I10] 08/11/2022 Encounter Status:Closed by KATIE NICOLE on 04/29/24 Normal [facility] ECHOon 04-25-2024 Echocardiography Echocardiography Report: Transthoracic Echo [facility] Date of service: 04/25/2024 2:49:21 PM TREATMENT COUNSELOR Ordering physician: SUNDEEP DOMÍNGUEZ Indication: Cardiac murmur Technologist: Jenni Oates [facility] [[email or web address]] Interpreting physician: Osmin Loving MD PATIENT: Name: MS. ANASTASIA HELLER : 1970 Age: 53 years Gender: F History of hypertension. Primary rhythm: sinus. Height: 151.10 cm BSA: 2.48 m Weight: 146.50 kg BMI: 64.2 kg/m Heart rate 82 bpm Technically difficult exam due to body habitus. Color Doppler was utilized to interrogate the cardiac valves assessed and spectral Doppler was utilized to determine the flow velocities and pressure gradients reported in this exam. MEASUREMENTS: Value Indexed Normal Max aortic dimension 3.7 cm Ao < 3.8 Left atrial volume 45 ml (4ch A-L) 18 ml/m Karime <= 34 LV ID (diastole) 5.5 cm (2D) 2.22 cm/m LV ID (systole) 3.7 cm (2D) 1.51 cm/m IVS, leaflet tips 1.1 cm (2D) Posterior wall thickness 1.0 cm (2D) Left ventricular mass 234 g (2D) 94 g/m LV stroke volume 75 ml (2D 4-ch.) LV end diastolic volume 127 ml (2D 4-ch.) 51.2 ml/m 29<=EDVi<62 LV end systolic volume 52 ml (2D 4-ch.) 21.0 ml/m Ejection Fraction 59 % (2D 4-ch.) EF > 54 FINDINGS: LEFT VENTRICLE The left ventricle is normal in size. Left ventricular systolic function is normal. Normal left ventricular diastolic function. Mitral annular lateral E/e': 10.3. Mitral annular septal E/e': 13.2. Wall Motion: All scored segments are normal. RIGHT VENTRICLE The right ventricle is normal in size. Right ventricular systolic function is normal. RV systolic tissue Doppler velocity is 15.0 cm/s. Tricuspid annular displacement is 2.0 cm. Estimated right atrial pressure is 3 mmHg (although IVC not seen). LEFT ATRIUM The left atrial cavity is normal in size. Pulmonary Veins: The pulmonary venous pattern showed normal systolic flow. RIGHT ATRIUM The right atrial cavity is normal in size. Inferior Vena Cava: The inferior vena cava appears normal measuring 1.4 cm. MITRAL VALVE The mitral valve leaflets are structurally normal. There is trace mitral valve regurgitation. The pressure half time is 65 msec. The peak mitral E/A ratio is 1.22. The average mitral E/e' ratio is 11.8. The mitral flow deceleration time is 225 msec. TRICUSPID VALVE The tricuspid valve leaflets are structurally normal. There is no tricuspid valve regurgitation. AORTIC VALVE The aortic valve cusps are structurally normal. There is trace aortic valve regurgitation. Tricuspid aortic valve. The peak gradient is 25 mmHg (peak velocity = 249.7 cm/s). PULMONIC VALVE The pulmonic valve cusps are structurally normal. There is trace pulmonic valve regurgitation. AORTA The visualized aorta is normal in size. Measurements - Mid ascending aorta 3.7 cm. PERICARDIUM There is no pericardial effusion. There is an epicardial fat pad. CONCLUSIONS: - Technically difficult exam due to body habitus. - Exam indication: Cardiac murmur - The left ventricle is normal in size. Left ventricular systolic function is normal. EF = 59 5% (2D 4-ch.) Normal left ventricular diastolic function. - The right ventricle is normal in size. Right ventricular systolic function is normal. - There are no significant valvular abnormalities. - The patient has not had a prior CC echocardiographic exam for comparison. * * * Final * * * [facility] Image : [id number] [id number] Normal [facility] ANA[facility] ([id number]) 1970 F Date Time Provider Department 04/17/24 SHAUNA BELLO INTMWS During your visit today, we recorded the following information about you: Jenni Holcomb RN 04/17/2024 12:42 PM Signed Patient calls and notified of lab results and provider recommendations. Blood counts are stable. Vitamin d is low, I am sending in a vitamin d supplement to start taking daily. Cholesterol is elevated and blood sugars are elevated in the prediabetes range, liver numbers are slightly up too. We discussed that you are motivated to work on a healthy lifestyle and slowly increasing physical activity will help these numbers. B12 is at the lower end of normal, we could look at adding a b12 supplement if interested. Patient will to take vitamin b12. Patient asking if prescription can be sent to pharmacy. Sundeep Domínguez APRN.CNP 04/17/2024 12:51 PM Signed Sent. Allergies As of Date: 04/17/2024 Noted Allergy Reaction REGLAN (METOCLOPRAMIDE HCL) 09/22/2009 Comments: Calhoun like coming out of her skin; felt like was was more nauseated the next day ZOLOFT (SERTRALINE HCL) 08/11/2007 5 - Intolerance 6 - Diarrhea Comments: Forgetfullness; did not help with somnolence Date Reviewed: 04/12/2024 Reviewed by: Sundeep Domínguez APRN.EXTRACT WRINGER - Fully Assessed Reason for Visit: Results [95] Primary Visit Diagnosis:B12 deficiency [E53.8] Order(s):cyanocobalam in (VITAMIN B-12) 1,000 mcg tabTake 1 tablet by mouth once daily.Disp: 90 tabletRfl: 3 Prescriptions as of 04/17/2024 - cyanocobalamin (VITAMIN B-12) 1,000 mcg tab Take 1 tablet by mouth once daily. - Cholecalciferol, Vitamin D3, 125 mcg (5,000 unit) cap Take 1 capsule by mouth once daily. - rizatriptan (MAXALT-ENGINEERING DOCUMENTATION SPECIALIST) 10 mg disintegrating tablet Take 1 tablet (10 mg) by mouth as directed. May repeat in 2 hours if needed - albuterol HFA (VENTOLIN HFA) 90 mcg/actuation inhaler Inhale 2 Puffs as instructed every 4 hours as needed for wheezing/shortness of breath. - atenolol (TENORMIN) 25 mg tablet Take 1 tablet by mouth once daily. - ibuprofen (MOTRIN) 600 mg tablet Take 1 tablet by mouth every 8 hours as needed for pain (for migraines). - meloxicam (MOBIC) 7.5 mg tablet Take 1 tablet by mouth once daily as needed for pain (for knee pain). With food. Do not take on days you take the ibuprofen. 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 Encounter Status:Closed by SUNDEEP DOMÍNGUEZ on 04/17/24 [facility]14[facility]20[facility] ANASTASIA HELLER ([id number]) 1970 F Date Time Provider Department 04/14/24 SUNDEEP DOMÍNGUEZWS During your visit today, we recorded the following information about you: Jenni Holcomb RN 04/17/2024 12:40 PM Signed Patient notified of results and provider's instructions. Patient verbalizes understanding. Jenni Holcomb RN Allergies As of Date: 04/14/2024 Noted Allergy Reaction REGLAN (METOCLOPRAMIDE HCL) 09/22/2009 Comments: Calhoun like coming out of her skin; felt like was was more nauseated the next day ZOLOFT (SERTRALINE HCL) 08/11/2007 5 - Intolerance 6 - Diarrhea Comments: Forgetfullness; did not help with somnolence Date Reviewed: 04/12/2024 Reviewed by: Sundeep Domínguez APRN.EXTRACT WRINGER - Fully Assessed Reason for Visit: Results [95] Order(s):Cholecalcife rol, Vitamin D3, 125 mcg (5,000 unit) capTake 1 capsule by mouth once daily.Disp: 90 capsuleRfl: 2 Prescriptions as of 04/17/2024 - Cholecalciferol, Vitamin D3, 125 mcg (5,000 unit) cap Take 1 capsule by mouth once daily. - rizatriptan (MAXALT-ENGINEERING DOCUMENTATION SPECIALIST) 10 mg disintegrating tablet Take 1 tablet (10 mg) by mouth as directed. May repeat in 2 hours if needed - albuterol HFA (VENTOLIN HFA) 90 mcg/actuation inhaler Inhale 2 Puffs as instructed every 4 hours as needed for wheezing/shortness of breath. - atenolol (TENORMIN) 25 mg tablet Take 1 tablet by mouth once daily. - ibuprofen (MOTRIN) 600 mg tablet Take 1 tablet by mouth every 8 hours as needed for pain (for migraines). - meloxicam (MOBIC) 7.5 mg tablet Take 1 tablet by mouth once daily as needed for pain (for knee pain). With food. Do not take on days you take the ibuprofen. 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 Encounter Status:Closed by SUNDEEP DOMÍNGUEZ on 04/14/24 Normal [facility] 25(OH)D3 SerPl-mCncon 2023 25-hydroxyvitamin D3 [Mass/Vol] 11.6 ng/mL Low 31.0-80.0 [facility] Comment on above: Order Comment: Speci men Type: BLOOD SPECIMEN Ordering Facility: [facility] Address: [address] [place] [address] Performed By: #### 5 [id number] #### [facility] CLIA [id number] [address] [place] [address] [place] CBC W Auto Differential pane l (Bld)on 04-12-2024 Basophils (Bld) [#/Vol] 0.09 10*3/uL [facility] Basophils/100 WBC (Bld) 1.0 % [facility] Differential cell count method Nom (Bld) Auto [facility] Eosinophils (Bld) [#/Vol] 0.10 10*3/uL [facility] Eosinophils/100 WBC (Bld) 1.1 % [facility] Erythrocyte distribution width (RBC) [Ratio] 12.2 % 11.5 - 15.0 % [facility] Hematocrit (Bld) [Volume fraction] 43.0 % 36.0 - 46.0 % [facility] Hemoglobin (Bld) [Mass/Vol] 14.0 g/dL 11.5 - 15.5 g/dL [facility] Immature granulocytes (Bld) [#/Vol] 0.03 10*3/[facility]L [facility] Immature granulocytes/100 WBC (Bld) 0.3 % [facility] Lymphocytes (Bld) [#/Vol] 3.22 10*3/uL [facility] Lymphocytes/100 WBC (Bld) 34.1 % [facility] MCH (RBC) [Entitic mass] 29.2 pg 26.0 - 34.[address] [facility] MCHC (RBC) [Mass/Vol] 32.6 g/dL 30.5 - 36.0 g/dL [facility] MCV (RBC) [Entitic vol] 89.8 fL 80.0 - 100.[address] [facility] Monocytes (Bld) [#/Vol] 0.72 10*3/uL [facility] Monocytes/100 WBC (Bld) 7.6 % [facility] Neutrophils (Bld) [#/Vol] 5.28 10*3/uL [facility] Neutrophils/100 WBC (Bld) 55.9 % [facility] Nucleated RBC (Bld) [#/Vol] [facility] Nucleated RBC/100 WBC (Bld) [Ratio] 0.0 % /[address] [facility] Platelet mean volume (Bld) [Entitic vol] 11.5 fL 9.0 - 12.[address] [facility] Platelets (Bld) [#/Vol] 298 10*3/uL [facility] RBC (Bld) [#/Vol] 4.79 10*6/uL 3.90 - 5.2 0 m/uL [facility] WBC (Bld) [#/Vol] 9.44 10*3/uL [facility] Basophils (Bld) [#/Vol] 0.09 10*3/uL Normal <0.11 [facility] Comment on above: Order Comment: Speci men Type: BLOOD SPECIMEN Ordering Facility: [facility] Address: [address] [place] [address] Performed By: #### 5 7021-8 #### [facility] CLIA [id number] [address] [place] [address] [place] Basophils/100 WBC (Bld) 1.0 % Normal [facility] Comment on above: Order Comment: Speci men Type: BLOOD SPECIMEN Ordering Facility: [facility] Address: [address] [place] [address] Performed By: #### 5 7021-8 #### [facility] CLIA [id number] [address] [place] [address] [place] Differential cell count method Nom (Bld) Auto Normal [facility] Comment on above: Order Comment: Speci men Type: BLOOD SPECIMEN Ordering Facility: [facility] Address: [address] [place] [address] Performed By: #### 5 7021-8 #### [facility] CLIA [id number] [address] [place] [address] [place] Eosinophils (Bld) [#/Vol] 0.10 10*3/uL Normal <0.46 [facility] Comment on above: Order Comment: Speci men Type: BLOOD SPECIMEN Ordering Facility: [facility] Address: [address] [place] [address] Performed By: #### 5 7021-8 #### [facility] CLIA [id number] [address] [place] [address] [place] Eosinophils/100 WBC (Bld) 1.1 % Normal [facility] Comment on above: Order Comment: Speci men Type: BLOOD SPECIMEN Ordering Facility: [facility] Address: [address] [place] [address] Performed By: #### 5 7021-8 #### [facility] CLIA [id number] [address] [place] [address] [place] Erythrocyte distribution width (RBC) [Ratio] 12.2 % Normal 11.5-15.0 [facility] Comment on above: Order Comment: Speci men Type: BLOOD SPECIMEN Ordering Facility: [facility] Address: [address] [place] [address] Performed By: #### 5 7021-8 #### [facility] CLIA [id number] [address] [place] [address] [place] Hematocrit (Bld) [Volume fraction] 43.0 % Normal 36.0-46.0 [facility] Comment on above: Order Comment: Speci men Type: BLOOD SPECIMEN Ordering Facility: [facility] Address: [address] [place] [address] Performed By: #### 5 7021-8 #### [facility] CLIA [id number] [address] [place] [address] [place] Hemoglobin (Bld) [Mass/Vol] 14.0 g/dL Normal 11.5-15.5 [facility] Comment on above: Order Comment: Speci men Type: BLOOD SPECIMEN Ordering Facility: [facility] Address: [address] [place] [address] Performed By: #### 5 7021-8 #### [facility] CLIA [id number] [address] [place] [address] [place] Immature granulocytes (Bld) [#/Vol] 0.03 10*3/uL Normal <0.10 [facility] Comment on above: Order Comment: Speci men Type: BLOOD SPECIMEN Ordering Facility: [facility] Address: [address] [place] [address] Performed By: #### 5 7021-8 #### [facility] CLIA [id number] [address] [place] [address] [place] Immature granulocytes/100 WBC (Bld) 0.3 % Normal [facility] Comment on above: Order Comment: Speci men Type: BLOOD SPECIMEN Ordering Facility: [facility] Address: [address] [place] [address] Performed By: #### 5 7021-8 #### [facility] CLIA [id number] [address] [place] [address] [place] Lymphocytes (Bld) [#/Vol] 3.22 10*3/uL Normal 1.00-4.00 [facility] Comment on above: Order Comment: Speci men Type: BLOOD SPECIMEN Ordering Facility: [facility] Address: [address] [place] [address] Performed By: #### 5 7021-8 #### [facility] CLIA [id number] [address] [place] [address] [place] Lymphocytes/100 WBC (Bld) 34.1 % Normal [facility] Comment on above: Order Comment: Speci men Type: BLOOD SPECIMEN Ordering Facility: [facility] Address: [address] [place] [address] Performed By: #### 5 7021-8 #### [facility] CLIA [id number] [address] [place] [address] [place] MCH (RBC) [Entitic mass] 29.2 pg Normal 26.0-34.0 [facility] Comment on above: Order Comment: Speci men Type: BLOOD SPECIMEN Ordering Facility: [facility] Address: [address] [place] [address] Performed By: #### 5 7021-8 #### [facility] CLIA [id number] [address] [place] [address] [place] MCHC (RBC) [Mass/Vol] 32.6 g/dL Normal 30.5-36.0 [facility] Comment on above: Order Comment: Speci men Type: BLOOD SPECIMEN Ordering Facility: [facility] Address: [address] [place] [address] Performed By: #### 5 7021-8 #### [facility] CLIA [id number] [address] [place] [address] [place] MCV (RBC) [Entitic vol] 89.8 fL Normal 80.0-100.0 [facility] Comment on above: Order Comment: Speci men Type: BLOOD SPECIMEN Ordering Facility: [facility] Address: [address] [place] [address] Performed By: #### 5 7021-8 #### [facility] CLIA [id number] [address] [place] [address] [place] Monocytes (Bld) [#/Vol] 0.72 10*3/uL Normal <0.87 [facility] Comment on above: Order Comment: Speci men Type: BLOOD SPECIMEN Ordering Facility: [facility] Address: [address] [place] [address] Performed By: #### 5 7021-8 #### [facility] CLIA [id number] [address] [place] [address] [place] Monocytes/100 WBC (Bld) 7.6 % Normal [facility] Comment on above: Order Comment: Speci men Type: BLOOD SPECIMEN Ordering Facility: [facility] Address: [address] [place] [address] Performed By: #### 5 7021-8 #### [facility] CLIA [id number] [address] [place] [address] [place] Neutrophils (Bld) [#/Vol] 5.28 10*3/uL Normal 1.45-7.50 [facility] Comment on above: Order Comment: Speci men Type: BLOOD SPECIMEN Ordering Facility: [facility] Address: [address] [place] [address] Performed By: #### 5 7021-8 #### [facility] CLIA [id number] [address] [place] [address] [place] Neutrophils/100 WBC (Bld) 55.9 % Normal [facility] Comment on above: Order Comment: Speci men Type: BLOOD SPECIMEN Ordering Facility: [facility] Address: [address] [place] [address] Performed By: #### 5 7021-8 #### [facility] CLIA [id number] [address] [place] [address] [place] Nucleated RBC (Bld) [#/Vol] 10*3/uL Normal <0.01 [facility] Comment on above: Order Comment: Speci men Type: BLOOD SPECIMEN Ordering Facility: [facility] Address: [address] [place] [address] Performed By: #### 5 7021-8 #### [facility] CLIA [id number] [address] [place] [address] [place] Nucleated RBC/100 WBC (Bld) [Ratio] 0.0 /100 WBC Normal [facility] Comment on above: Order Comment: Speci men Type: BLOOD SPECIMEN Ordering Facility: [facility] Address: [address] [place] [address] Performed By: #### 5 7021-8 #### [facility] CLIA [id number] [address] [place] [address] [place] Platelet mean volume (Bld) [Entitic vol] 11.5 fL Normal 9.0-12.7 [facility] Comment on above: Order Comment: Speci men Type: BLOOD SPECIMEN Ordering Facility: [facility] Address: [address] [place] [address] Performed By: #### 5 7021-8 #### [facility] CLIA [id number] [address] [place] [address] [place] Platelets (Bld) [#/Vol] 298 10*3/uL Normal 150-400 [facility] Comment on above: Order Comment: Speci men Type: BLOOD SPECIMEN Ordering Facility: [facility] Address: [address] [place] [address] Performed By: #### 5 7021-8 #### [facility] CLIA [id number] [address] [place] [address] [place] RBC (Bld) [#/Vol] 4.79 10*6/uL Normal 3.90-5.20 [facility] Comment on above: Order Comment: Speci men Type: BLOOD SPECIMEN Ordering Facility: [facility] Address: [address] [place] [address] Performed By: #### 5 7021-8 #### [facility] CLIA [id number] [address] [place], [place] [address] [place] WBC (Bld) [#/Vol] 9.44 10*3/uL Normal 3.70-11.00 [facility] Comment on above: Order Comment: Speci men Type: BLOOD SPECIMEN Ordering Facility: [facility] Address: [address] [place], [place] [address] Performed By: #### 5 7021-8 #### [facility] CLIA [id number] [address] [place], [place] [id number] [place] CNOVon 04-12-2024 CNOV Office Visit (INTMWS ) ANASTASIA HELLER ([id number]) 1970 F Date Time Provider Department 04/12/24 1:00 PM SUNDEEP DOMÍNGUEZ INTMWS During your visit today, we recorded the following information about you: Pulse Blood pressure Weight 74/minute 145/84 146.5 kg Sundeep Domínguez APRN.[employer] 04/12/2024 2:51 PM Signed SUBJECTIVE Anastasia Heller is a 53 year old female here today for a check up on her medical problems. Chief Complaint Patient presents with: Letter Shortness of Breath Headache: states are coming back HPI Anastasia Heller is a 53 year old female. She is an established patient of Shauna Bello MD. She was last seen in the office 07/2022. Here today for follow up. Notes some concerns of shortness of breath but attributes this to weight, sitting and rest alleviates this. Having more headaches. Will get aura and tries to take NSAIDs before triptan. Not taking her blood pressure medication. Admits that she needs to work on weight loss, motivated to do this. Needs an updated letter with excuse from wearing a seat belt, Shauna Bello MD has done this in the past. Would like to update labs. Her medications were reviewed today and her list is now up to date. Medications Current Outpatient Medications Medication Sig rizatriptan (MAXALT-ENGINEERING DOCUMENTATION SPECIALIST) 10 mg disintegrating tablet Take 1 tablet (10 mg) by mouth as directed. May repeat in 2 hours if needed albuterol HFA (VENTOLIN HFA) 90 mcg/actuation inhaler Inhale 2 Puffs as instructed every 4 hours as needed for wheezing/shortness of breath. atenolol (TENORMIN) 25 mg tablet Take 1 tablet by mouth once daily. ibuprofen (MOTRIN) 600 mg tablet Take 1 tablet by mouth every 8 hours as needed for pain (for migraines). meloxicam (MOBIC) 7.5 mg tablet Take 1 tablet by mouth once daily as needed for pain (for knee pain). With food. Do not take on days you take the ibuprofen. No current facility-administered medications for this visit. ALLERGIES Allergen Reactions Reglan [Metoclopram* [place] like coming out of her skin; felt like was was more nauseated the next day Zoloft [Sertraline * Intolerance, Diarrhea Forgetfullness; did not help with somnolence ACTIVE PROBLEM LIST Primary Hypertension - 08/11/2022 Calculus of Ureter - 08/04/2016 Gastroesophageal Reflux Disease - 08/04/2016 Bmi 60.0-69.9, Adult ([facility]) - 08/04/2016 Chronic Bronchitis ([facility]) - 08/04/2016 Kidney Stones - 07/24/2016 Excessive Daytime Sleepiness Panic Disorder Without Agoraphobia - 08/05/2006 Migraine Without Aura - 03/23/2005 Esophageal Reflux - 03/23/2005 Osteoarthritis of Multiple Joints - 03/11/2005 Sciatica - 03/11/2005 Social History Tobacco Use Smoking status: Never Smokeless tobacco: Never Vaping Use Vaping status: Never Used Substance Use Topics Alcohol use: No Drug use: Never Review of Systems Constitutional: Negative. Respiratory: Positive for shortness of breath. Negative for apnea, cough, choking, chest tightness, wheezing and stridor. Cardiovascular: Negative. OBJECTIVE BP 145/84[BP Calixto Average[ Pulse 74 Wt 322 lb 15.6 oz (146.5kg) SpO2 97% Physical Exam Vitals and nursing note reviewed. Constitutional: General: She is awake. She is not in acute distress. Appearance: Normal appearance. She is well-developed and well-groomed. She is not ill-appearing, toxic-appearing or diaphoretic. HENT: Head: Normocephalic. Right Ear: External ear normal. Left Ear: External ear normal. Nose: Nose normal. Eyes: General: Vision grossly intact. Conjunctiva/sclera: Conjunctivae normal. Pupils: Pupils are equal, round, and reactive to light. Neck: Vascular: No JVD. Trachea: Trachea normal. Cardiovascular: Rate and Rhythm: Normal rate and regular rhythm. Pulses: Normal pulses. Heart sounds: Murmur heard. Pulmonary: Effort: Pulmonary effort is normal. No accessory muscle usage, prolonged expiration or respiratory distress. Breath sounds: Normal breath sounds. Musculoskeletal: Cervical back: Neck supple. Skin: General: Skin is warm and dry. Capillary Refill: Capillary refill takes less than 2 seconds. Neurological: General: No focal deficit present. Mental Status: She is alert and oriented to person, place, and time. Mental status is at baseline. Psychiatric: Attention and Perception: Attention and perception normal. Mood and Affect: Mood and affect normal. Speech: Speech normal. Behavior: Behavior normal. Behavior is cooperative. Thought Content: Thought content normal. Cognition and Memory: Cognition and memory normal. Judgment: Judgment normal. ASSESSMENT/PLAN: 1. Primary hypertension - ICD9: 401.9, ICD10: I10 (primary diagnosis) - Uncontrolled - Factors affecting control: medication adherence - Recommend home blood pressure monitoring, to bring results to next visit - Encouraged sodium restriction, (more content not included)... Normal [facility] Comprehensive metabolic 2000 panelon 04-12-2024 Albumin [Mass/Vol] 4.0 g/dL Normal 3.9-4.9 [facility] Comment on above: Order Comment: Speci men Type: BLOOD SPECIMENOrdering Facility: [facility] Address: [address] [place] [address] Performed By: #### 2 4323-8, JEFF, 2132-9 ####[facility] [id number] [place] [address] [address] [place] ALP [Catalytic activity/Vol] 98 U/L Normal 34-123 [facility] Comment on above: Order Comment: Speci men Type: BLOOD SPECIMENOrdering Facility: [facility] Address: [address] [place] [address] Performed By: #### 2 4323-8, LIPNF, 2132-01 ####[facility] [id number] [place] [address] [place] ALT [Catalytic activity/Vol] 39 U/L High 7-38 [facility] Comment on above: Order Comment: Speci men Type: BLOOD SPECIMENOrdering Facility: [facility] Address: [address] [place] [address] Performed By: #### 2 432-8, LIPNF, 2132-01 ####[facility] [id number] [place] [address] [place] Anion gap [Moles/Vol] 13 mmol/L Normal 8-15 [facility] Comment on above: Order Comment: Speci men Type: BLOOD SPECIMENOrdering Facility: [facility] Address: [address] [place] [address] Performed By: #### 2 4323-8, LIPNF, 2132-01 ####[facility] [id number] [place] [address] [place] AST [Catalytic activity/Vol] 42 U/L High 13-35 [facility] Comment on above: Order Comment: Speci men Type: BLOOD SPECIMENOrdering Facility: [facility] Address: [address] [place] [address] Performed By: #### 2 4323-8, LIPNF, 2132-01 ####[facility] [id number] [place] [address] [place] Bilirubin [Mass/Vol] 0.4 mg/dL Normal 0.2-1.3 [facility] Comment on above: Order Comment: Speci men Type: BLOOD SPECIMENOrdering Facility: [facility] Address: [address] [id number] Performed By: #### 2 432-8, LIPNF, 2132-01 ####[facility] [id number] [address] [address] [place] Calcium [Mass/Vol] 9.9 mg/dL Normal 8.5-10.2 [facility] Comment on above: Order Comment: Speci men Type: BLOOD SPECIMENOrdering Facility: [facility] Address: [address] [place], [place] [id number] Performed By: #### 2 432-8, LIPNF, 2132-01 ####[facility] [id number] [place] [address] [place] Chloride [Moles/Vol] 105 mmol/L Normal 98-107 [facility] Comment on above: Order Comment: Speci men Type: BLOOD SPECIMENOrdering Facility: [facility] Address: [address] [place] [address] Performed By: #### 2 4323-8, LIPNF, 2132-01 ####[facility] [id number] [place] [address] [place] CO2 [Moles/Vol] 24 mmol/L Normal 22-30 [facility] Comment on above: Order Comment: Speci men Type: BLOOD SPECIMENOrdering Facility: [facility] Address: [address] [id number] Performed By: #### 2 4323-8, LIPNF, 2132-01 ####[facility] [id number] [address] [address] [place] Creatinine [Mass/Vol] 0.73 mg/dL Normal 0.58-0.96 [facility] Comment on above: Order Comment: Speci men Type: BLOOD SPECIMENOrdering Facility: [facility] Address: [address] [place], [place] [address] Performed By: #### 2 4323-8, JEFF, 2132-01 ####[facility] [id number] [place] [address] [place] Creatinine and Glomerular filtration rate.predicted panel (S/P/Bld) 97 mL/min/1.73m??? Normal >=60 [facility] Comment on above: Order Comment: Nicole azar Type: BLOOD SPECIMENOrdering Facility: [facility] Address: [address] [place] [address] Result Comment: Ally mated Glomerular Filtration Rate (eGFR) is calculated using the 2020 CKD-EPI creatinine equation. This equation utilizes serum creatinine, sex, and age as parameters. The creatinine assay has traceable calibration to isotope dilution-mass spectrometry. Refer to KDIGO guidelines for clinical interpretation. In patients with unstable renal function, e.g. those with acute kidney injury, the eGFR may not accurately reflect actual GFR. Performed By: #### 2 4323-8, JEFF, 2132-01 ####[facility] [id number] [place] [address] [place] Glucose [Mass/Vol] 136 mg/dL High 74-99 [facility] Comment on above: Order Comment: Nicole azar Type: BLOOD SPECIMENOrdering Facility: [facility] Address: [address] [place] [address] Result Comment: The [place] Diabetes Association (ADA) provides guidance for cutoff values for fasting glucose and random glucose. The ADA defines fasting as no caloric intake for at least 8 hours. Fasting plasma glucose results between 100 to 125 mg/dL indicate increased risk for diabetes (prediabetes). Fasting plasma glucose results greater than or equal to 126 mg/dL meet the criteria for diagnosis of diabetes. In the absence of unequivocal hyperglycemia, results should be confirmed by repeat testing. In a patient with classic symptoms of hyperglycemia or hyperglycemic crisis, random plasma glucose results greater than or equal to 200 mg/dL meet the criteria for diagnosis of diabetes. Reference: Standards of Medical Care in Diabetes 2016, [place] Diabetes Association. Diabetes Care. 2016.39(Suppl 1). Performed By: #### 2 43238, LIPNF, 2132-01 ####[facility] [id number] [address] [address] [place] Potassium [Moles/Vol] 3.9 mmol/L Normal 3.7-5.1 [facility] Comment on above: Order Comment: Speci men Type: BLOOD SPECIMENOrdering Facility: [facility] Address: [address] [place] [address] Performed By: #### 2 8, LIPNF, 2132-01 ####[facility] [id number] [address] [address] [place] Protein [Mass/Vol] 7.4 g/dL Normal 6.3-8.0 [facility] Comment on above: Order Comment: Speci men Type: BLOOD SPECIMENOrdering Facility: [facility] Address: [address] [place] [address] Performed By: #### 2 8, LIPNF, 2132-01 ####[facility] [id number] [place] [id number] [place] Sodium [Moles/Vol] 142 mmol/L Normal 136-144 [facility] Comment on above: Order Comment: Speci men Type: BLOOD SPECIMENOrdering Facility: [facility] Address: [address] [place], [place] [address] Performed By: #### 2 8, LIPNF, 2132-01 ####[facility] [id number] [address] [address] [place] Urea nitrogen [Mass/Vol] 12 mg/dL Normal 7-21 [facility] Comment on above: Order Comment: Speci men Type: BLOOD SPECIMENOrdering Facility: [facility] Address: [address] [place], [place] [address] Performed By: #### 2 432-8, LIPNF, 2132-01 ####[facility] [id number] [place] [address] [place] HbA1c (Bld)on 04-12-2024 Average glucose Estimated from glycated hemoglobin (Bld) [Mass/Vol] 134 mg/dL Normal [facility] Comment on above: Order Comment: Nicole azar Type: BLOOD SPECIMENOrdering Facility: [facility] Address: [address] [place] [address] Result Comment: eAG: (Estimated average glucose) is a calculated value from HgbA1c and is member service representative of the average blood glucose level in the last 2-3 month period. Performed By: #### 5 5454-3 ####[facility] [id number] [place] [address] [place] HbA1c (Bld) [Mass fraction] 6.3 % High 4.3-5.6 [facility] Comment on above: Order Comment: Nicole azar Type: BLOOD SPECIMENOrdering Facility: [facility] Address: [address] [place] [address] Result Comment: [place] Diabetes Association guidelines indicate that patients with HgbA1c in the range 5.7-6.4% are at increased risk for development of diabetes, and intervention by lifestyle modification may be beneficial. HgbA1c greater or equal to 6.5% is considered diagnostic of diabetes. Performed By: #### 5 5454-3 ####[facility] [id number] [place] [address] [place] LIPID PANEL, NONFASTINGon Cholesterol [Mass/Vol] 238 mg/dL High <200 [facility] Comment on above: Order Comment: Nicole azar Type: BLOOD SPECIMENOrdering Facility: [facility] [place] Address: [address] [place] [address] Result Comment: <200 mg/dL, Desirable 200-239 mg/dL, Borderline high >239 mg/dL, High Performed By: #### 2 4323-8, LIPNF, 2132-9 ####[facility] LABCLIA [id number] [place] [address] [place] HDL CHOLESTEROL, NF 38 mg/dL Low >39 [facility] Comment on above: Order Comment: Speci men Type: BLOOD SPECIMENOrdering Facility: [facility] Address: [address] [place] [address] Result Comment: 40-5 9 mg/dL, Acceptable >59 mg/dL, High: Negative risk factor for coronary heart disease <40 mg/dL, Low: Positive risk factor for coronary heart disease Performed By: #### 2 4323-8, LIPNF, 2132-01 ####[facility] LABCLIA [id number] [address] LDL CHOLESTEROL, NF 139 mg/dL High <100 [facility] Comment on above: Order Comment: Pazjacinto azar Type: BLOOD SPECIMENOrdering Facility: [facility] Address: [address] [place] [address] Result Comment: <100 mg/dL, Optimal 100-129 mg/dL, Near optimal/above optimal 130-159 mg/dL, Borderline high 160-189 mg/dL, High >189 mg/dL, Very high Secondary prevention optimal LDL Cholesterol levels are recommended to be < 70 mg/dL Performed By: #### 2 4323-8, LIPNF, 2132-01 ####[facility] LABCLIA [id number] [address] LDL/HDL RATIO, NF 3.66 mg/dL High <2.54 [facility] Comment on above: Order Comment: Speci nissa Type: BLOOD SPECIMENOrdering Facility: [facility] Address: [address] [place] [address] Result Comment: Refe rence: 1. National Cholesterol Education Program ATP III Guideline At-A-Glance Quick Desk Reference: National Heart, Lung, and Blood [place]. National Institutes of Health. 2001: NIH Publication No. 01-3305. 2. An International Atherosclerosis Society position paper: global recommendations for the management of dyslipidemia: executive summary, Atherosclerosis. 2014: 232(2):410-413. Performed By: #### 2 4323-8, LIPNF, 2132-01 ####[facility] LABCLIA [id number] [place] [address] [place] NON HDL CHOL, NF 200 mg/dL High <130 [facility] Comment on above: Order Comment: Speci men Type: BLOOD SPECIMENOrdering Facility: [facility] Address: [address] [place] [address] Result Comment: <130 mg/dL, Optimal 130-159 mg/dL, Near optimal/above optimal 160-189 mg/dL, Borderline high 190-219 mg/dL, High >219 mg/dL, Very high Secondary prevention optimal non HDL Cholesterol levels are recommended to be <100 mg/dL Performed By: #### 2 4323-8, LIPANANT, 2132-01 ####[facility] LABCLIA [id number] [place] [address] [place] T CHOL/HDL RATIO NF 6.26 mg/dL High <5.10 [facility] Comment on above: Order Comment: Speci men Type: BLOOD SPECIMENOrdering Facility: [facility] Address: [address] [place] [address] Performed By: #### 2 4323-8, LIPNF, 2132-01 ####[facility] LABCLIA [id number] [place] [address] [place] TRIGLYCERIDES, NF 305 mg/dL High <150 [facility] Comment on above: Order Comment: Speci men Type: BLOOD SPECIMENOrdering Facility: [facility] Address: [address] [place] [address] Result Comment: <150 mg/dL, Normal 150-199 mg/dL, Borderline high 200-499 mg/dL, High >499 mg/dL, Very high Performed By: #### 2 4323-8, LIPNF, 2132-01 ####[facility] LABCLIA [id number] [place] [id number] [place] VLDL CHOLESTEROL, NF 61 mg/dL High <30 [facility] Comment on above: Order Comment: Speci men Type: BLOOD SPECIMENOrdering Facility: [facility] Address: [address] [facility] [place] [address] Performed By: #### 2 4323-8, LIPANANT, 2132-01 ####[facility] LABCLIA [id number] [address] OF [place] Vit B12 SerPl-ncon 024 Cobalamin (Vitamin B12) [Mass/Vol] 251 pg/mL Normal 232-1245 [facility] Comment on above: Order Comment: Speci men Type: BLOOD SPECIMENOrdering Facility: [facility] Address: [address] [place] [address] Performed By: #### 2 4323-8, LIPANANT, 2132-01 ####[facility] LABCLIA [id number] [address] OF [facility] Martir 04-11-2024 CNPN Telephone (INTMWS) ANASTASIA HELLER ([id number]) 1970 F Date Time Provider Department 04/11/24 SHAUNA BELLO INTWS During your visit today, we recorded the following information about you: Ami Eagle MA 04/11/2024 2:07 PM Signed Patient stopped in office asking for letter from 2022 to be signed regarding seat belt. Patient has not been since 08/11/22. Informed patient that she will need an appointment, pt reports that she has court tomorrow at 0800am and needs signed before. Patient offered appointments with Rhiannon today, declined. Scheduled with Sundeep tomorrow, 04/12/24 at 1pm. Ami Eagle MA Allergies As of Date: 04/11/2024 Noted Allergy Reaction REGLAN (METOCLOPRAMIDE HCL) 09/22/2009 Comments: [place] like coming out of her skin; felt like was was more nauseated the next day ZOLOFT (SERTRALINE HCL) 08/11/2007 5 - Intolerance 6 - Diarrhea Comments: Forgetfullness; did not help with somnolence Date Reviewed: 07/26/2023 Reviewed by: Taylor Block LPN - Fully Assessed Reason for Visit: Letter [264] Prescriptions as of 04/11/2024 - rizatriptan (MAXALT-ENGINEERING DOCUMENTATION SPECIALIST) 10 mg disintegrating tablet Take 1 tablet by mouth as directed. May repeat in 2 hours if needed - albuterol HFA (VENTOLIN HFA) 90 mcg/actuation inhaler Inhale 2 Puffs as instructed every 4 hours as needed for wheezing/shortness of breath. - atenolol (TENORMIN) 25 mg tablet Take 1 tablet by mouth once daily. - Benzonatate 200 mg capsule Take 1 capsule by mouth three times daily as needed. - albuterol (PROVENTIL) 2.5 mg /3 mL (0.083 %) nebulizer solution Use 3 mL via nebulizer one time only for 1 dose. Use over 5-15minutes. Problem List As Of Date 04/11/2024 Noted Resolved GENERAL OSTEOARTHROSIS [M15.9] 03/11/2005 SCIATICA [M54.30] 03/11/2005 Migraine without aura [G43.009] 03/23/2005 ESOPHAGEAL REFLUX [K21.9] 03/23/2005 PANIC DISORDER WITHOUT AGORAPHOBIA [F41.0] 08/05/2006 Allergic rhinitis [J30.9] 08/11/2022 Excessive daytime sleepiness [G47.19] Neck pain [M54.2] 08/11/2022 Kidney stones [N20.0] 07/24/2016 Calculus of ureter [N20.1] 08/04/2016 Gastroesophageal reflux disease [K21.9] 08/04/2016 BMI 60.0-69.9, adult (HCC) [Z68.44] 08/04/2016 Chronic bronchitis (HCC) [J42] 08/04/2016 Primary hypertension [I10] 08/11/2022 Encounter Status:Closed by SUNDEEP DOMÍNGUEZ on 04/11/24 [facility] XR Ribs - right Views and Ch est PAon 07-26-2023 IMPRESSION: No radiographic evidence of acute displaced right rib fracture Nuclear Equipment Design Engineer: [facility] Transcribe Date/Time: Jul 26 2023 2:37P Dictated by : PIETER TOBAR MD This examination was interpreted and the report reviewed and electronically signed by: PIETER TOBAR MD on Jul 26 2023 2:38PM [facility] DIVISION OF RADIOLOGY * * *Final Report* * * DATE OF EXAM: Jul 26 2023 2:37PM WOX 5244 - XR RIB/CHST 3V AP RIB/OBL/CHST R / PROCEDURE REASON: Pain * * * * Physician Interpretation * * * * TITLE: XR RIB/CHST 3V AP RIB/OBL/CHST R CLINICAL INDICATION: Pain TECHNIQUE: 3 view right side a radiographic rib series with inclusion of a single frontal view of the chest for purposes of comparison/symmetry COMPARISON: None FINDINGS: No acute displaced right rib fracture identified. Normal cardiomediastinal silhouette. No focal consolidation. No discernible pleural effusion or pneumothorax. Bone island in the right humeral head. Degenerative changes in the spine. DIVISION OF RADIOLOGY Provider, [facility] - 07/26/2023 * * *Final Report* * * DATE OF EXAM: Jul 26 2023 2:37PM WOX 5244 - XR RIB/CHST 3V AP RIB/OBL/CHST R / PROCEDURE REASON: Pain * * * * Physician Interpretation * * * * TITLE: XR RIB/CHST 3V AP RIB/OBL/CHST R CLINICAL INDICATION: Pain TECHNIQUE: 3 view right side a radiographic rib series with inclusion of a single frontal view of the chest for purposes of comparison/symmetry COMPARISON: None FINDINGS: No acute displaced right rib fracture identified. Normal cardiomediastinal silhouette. No focal consolidation. No discernible pleural effusion or pneumothorax. Bone island in the right humeral head. Degenerative changes in the spine. IMPRESSION IMPRESSION: No radiographic evidence of acute displaced right rib fracture Nuclear Equipment Design Engineer: [facility] Transcribe Date/Time: Jul 26 2023 2:37P Dictated by : PIETER TOBAR MD This examination was interpreted and the report reviewed and electronically signed by: PIETER TOBAR MD on Jul 26 2023 2:38PM EST [facility] Radiology Study observation (narrative) [facility] XR Ribs - right Views and Ch est PAOrdered By: Ccf Provider on 07-26-[address] [facility] .Auto Diffon 06-13-2022 Basophil, Absolute 0.1 10 3/mcL Normal 0.0-0.2 [facility] ([place]) Comment on above: Performed By: #### A CORY REA MDW, GFR, CBC, BMP #### [address] [address] Basophils/100 WBC (Bld) 1.2 % Normal 0.0-2.5 [facility] ([place]) Comment on above: Performed By: #### A CORY REA MDW, GFR, CBC, BMP #### [address] [address] Eosinophil, Absolute 0.2 10 3/mcL Normal 0.0-0.4 [facility] ([place] Comment on above: Performed By: #### A CORY REA MDW, GFR, CBC, BMP #### [address] [address] Eosinophils/100 WBC (Bld) 4.1 % Normal 0.0-7.0 [facility] ([place] Comment on above: Performed By: #### A CORY REA MDW, GFR, CBC, BMP #### [address] [address] Lymphocyte, Absolute 2.4 10 3/mcL Normal 0.8-3.9 [facility] ([place] Comment on above: Performed By: #### A CORY REA MDW, GFR, CBC, BMP #### [address] [address] Lymphocytes/100 WBC (Bld) 43.5 % Normal 10.0-50.0 [facility] ([place] Comment on above: Performed By: #### A CORY REA MDW, GFR, CBC, BMP #### [address] [address] Monocyte, Absolute 0.6 10 3/mcL Normal 0.2-1.0 [facility] ([place] Comment on above: Performed By: #### A CORY REA MDW, GFR, CBC, BMP #### [address] [address] Monocytes/100 WBC (Bld) 10.9 % Normal 1.7-13.0 [facility] ([place] Comment on above: Performed By: #### A CORY REA MDW, GFR, CBC, BMP #### [address] [address] Neutrophils/100 WBC (Bld) 40.3 % Normal 37.0-80.0 [facility] ([place] Comment on above: Performed By: #### A CORY REA MDW, GFR, CBC, BMP #### [address] [address] .GFRon 06-13-2022 GFR 110 ml/min/1.73sqm Normal [facility] ([place]) Comment on above: Result Comment: GFR Population mean for , Non- Americans Ages 20-29 = 116 mL/min/1.73 sq.m. Ages 30-39 = 107 mL/min/1.73 sq.m. Ages 40-49 = 99 mL/min/1.73 sq.m. Ages 50-59 = 93 mL/min/1.73 sq.m. Ages 60-69 = 85 mL/min/1.73 sq.m. Ages 70+ = 75 mL/min/1.73 sq.m. Chronic Kidney Disease: Less than 60 mL/min/1.73 square meters End Stage Renal Disease: Less than 15 mL/min/1.73 square meters Performed By: #### A CORY REA MDW, GFR, CBC, BMP #### [address] [address] GFR Non- 91 ml/min/1.73sqm Normal [facility] ([place]) Comment on above: Result Comment: GFR Population mean for , Non- Americans Ages 20-29 = 116 mL/min/1.73 sq.m. Ages 30-39 = 107 mL/min/1.73 sq.m. Ages 40-49 = 99 mL/min/1.73 sq.m. Ages 50-59 = 93 mL/min/1.73 sq.m. Ages 60-69 = 85 mL/min/1.73 sq.m. Ages 70+ = 75 mL/min/1.73 sq.m. Chronic Kidney Disease: Less than 60 mL/min/1.73 square meters End Stage Renal Disease: Less than 15 mL/min/1.73 square meters Performed By: #### A CORY REA MDW, GFR, CBC, BMP #### [address] [address] .MDWon 06-13-2022 Monocyte Distribution Width 21.95 High 0.00-20.00 [facility] ([place]) Comment on above: Result Comment: For adults in ED, MDW>20.0 may be associated with a higher risk of sepsis during the first 12hrs of hospital admission Performed By: #### A CORY REA MDW, GFR, CBC, BMP #### [address] [address] .NEUABSon 06-13-2022 Neutrophil, Absolute 2.3 10 3/mcL Low 2.9-6.2 [facility] ([place] Comment on above: Performed By: #### A CORY REA MDW, GFR, CBC, BMP #### [address] [address] .Urinalysis Microscopic (AO) on 06-13-2022 UA Bacteria Trace Abnormal [facility] ([place] Comment on above: Performed By: #### U AMICAO, UA #### [address] [address] UA RBC None Seen Normal None Seen [facility] ([place] Comment on above: Performed By: #### U AMICAO, UA #### [address] [address] UA Squam Epithelial 0-5 Abnormal None Seen [facility]) Comment on above: Performed By: #### U AMICAO, UA #### [address] [address] UA WBC 0-5 Abnormal None Seen [facility] ([place] Comment on above: Performed By: #### U AMICAO, UA #### [address] [address] BMPon 06-13-2022 BUN/Creatinine Ratio 15 ratio Normal 7-27 [facility] ([place] Comment on above: Performed By: #### A CORY REA MDW, GFR, CBC, BMP #### [address] [address] Calcium [Mass/Vol] 8.6 mg/dL Normal 8.4-10.2 [facility] ([place]) Comment on above: Performed By: #### A CORY REA MDW, GFR, CBC, BMP #### [address] [address] Chloride [Moles/Vol] 106 mmol/L Normal 98-107 [facility] ([place] Comment on above: Performed By: #### A CORY REA MDW, GFR, CBC, BMP #### [address] [address] CO2 [Moles/Vol] 29 mmol/L Normal 22-29 [facility] ([place] Comment on above: Performed By: #### A CORY REA MDW, GFR, CBC, BMP #### [address] [address] Creatinine [Mass/Vol] 0.68 mg/dL Normal 0.55-1.02 [facility] ([place]) Comment on above: Performed By: #### A CORY REA MDW, GFR, CBC, BMP #### [address] [address] Electrolyte Balance 6.0 mEq/L Normal 4.0-15.0 [facility] ([place] Comment on above: Performed By: #### A CORY REA MDW, GFR, CBC, BMP #### [address] [address] Glucose [Mass/Vol] 107 mg/dL High 70-105 [facility] ([place] Comment on above: Performed By: #### A CORY REA MDW, GFR, CBC, BMP #### [address] [address] Potassium [Moles/Vol] 3.8 mmol/L Normal 3.5-5.1 [facility] ([place] Comment on above: Performed By: #### A CORY REA MDW, GFR, CBC, BMP #### [address] [address] Sodium [Moles/Vol] 141 mmol/L Normal 136-145 [facility] ([place] Comment on above: Performed By: #### A CORY REA MDW, GFR, CBC, BMP #### [address] [address] Urea nitrogen [Mass/Vol] 10 mg/dL Normal 7-18 [facility] ([place] Comment on above: Performed By: #### A CORY REA MDW, GFR, CBC, BMP #### [address] [address] CBCon 06-13-2022 Erythrocyte distribution width (RBC) [Ratio] 13.7 % Normal 11.5-14.5 [facility] ([place] Comment on above: Performed By: #### A CORY RAE MDW, GFR, CBC, BMP #### [address] [address] Hematocrit (Bld) [Volume fraction] 39.2 % Normal 37.0-47.0 [facility] ([place] Comment on above: Performed By: #### A CORY REA MDW, GFR, CBC, BMP #### [address] [address] Hgb 12.9 G/dL Normal 12.0-16.0 [facility] ([place] Comment on above: Performed By: #### A CORY REA MDW, GFR, CBC, BMP #### [address] [address] MCH (RBC) [Entitic mass] 28.0 pg Normal 27.0-31.2 [facility] ([place] Comment on above: Performed By: #### A CORY REA MDW, GFR, CBC, BMP #### [address] [address] MCHC 33.0 G/dL Normal 33.0-37.0 [facility] ([place] Comment on above: Performed By: #### A CORY REA MDW, GFR, CBC, BMP #### [address] [address] MCV (RBC) [Entitic vol] 85.0 fL Normal 80.0-94.0 [facility] ([place] Comment on above: Performed By: #### A CORY REA MDW, GFR, CBC, BMP #### [address] [address] Platelet 258 10 3/mcL Normal 130-400 [facility] ([place] Comment on above: Performed By: #### A CORY REA MDW, GFR, CBC, BMP #### [address] [address] Platelet mean volume (Bld) [Entitic vol] 7.5 fL Normal 7.4-10.4 [facility] ([place] Comment on above: Performed By: #### A CORY REA MDW, GFR, CBC, BMP #### [address] [address] RBC 4.61 10 6/mcL Normal 4.20-5.40 [facility] ([place] Comment on above: Performed By: #### A CORY REA MDW, GFR, CBC, BMP #### [address] [address] WBC 5.6 10 3/mcL Normal 4.6-10.8 [facility] ([place] Comment on above: Performed By: #### A RONA, ADIFF, MDW, GFR, CBC, BMP #### [address] [place] [address] LABORATORYOrdered By: Caro Shaffer on 06-13-2022 Basophil, Absolute 0.1 103/mcL Invalid Interpretation Code 0.0 - 0.2 10^3/mcL AO Workflow SS Basophils/100 WBC (Bld) 1.2 % Invalid Interpretation Code 0.0 - 2.5 % AO Workflow SS Eosinophil, Absolute 0.2 103/mcL Invalid Interpretation Code 0.0 - 0.4 10^3/mcL AO Workflow SS Eosinophils/100 WBC (Bld) 4.1 % Invalid Interpretation Code 0.0 - 7.0 % AO Workflow SS Erythrocyte distribution width (RBC) [Ratio] 13.7 % Invalid Interpretation Code 11.5 - 14.5 % AO Workflow SS Hematocrit (Bld) [Volume fraction] 39.2 % Invalid Interpretation Code 37.0 - 47.0 % AO Workflow SS Hemoglobin (Bld) [Mass/Vol] 12.9 G/dL Invalid Interpretation Code 12.0 - 16.0 G/dL AO Workflow SS Lymphocyte, Absolute 2.4 103/mcL Invalid Interpretation Code 0.8 - 3.9 10^3/mcL AO Workflow SS Lymphocytes/100 WBC (Bld) 43.5 % Invalid Interpretation Code 10.0 - 50.0 % AO Workflow SS MCH (RBC) [Entitic mass] 28.0 pg Invalid Interpretation Code 27.0 - 31.2 pg AO Workflow SS MCHC 33.0 G/dL Invalid Interpretation Code 33.0 - 37.0 G/dL AO Workflow SS MCV (RBC) [Entitic vol] 85.0 fL Invalid Interpretation Code 80.0 - 94.0 fL AO Workflow SS Monocyte distribution width Auto (Bld) [Entitic vol] 21.95 Invalid Interpretation Code 0.00 - 20.00 AO Workflow SS Comment on above: Result Comment: For adults in ED, MDW>20.0 may be associated with a higher risk of sepsis during the first 12hrs of hospital admission Monocyte, Absolute 0.6 103/mcL Invalid Interpretation Code 0.2 - 1.0 10^3/mcL AO Workflow SS Monocytes/100 WBC (Bld) 10.9 % Invalid Interpretation Code 1.7 - 13.0 % AO Workflow SS Neutrophil, Absolute 2.3 103/mcL Invalid Interpretation Code 2.9 - 6.2 10^3/mcL AO Workflow SS Neutrophils/100 WBC (Bld) 40.3 % Invalid Interpretation Code 37.0 - 80.0 % AO Workflow SS Platelet mean volume (Bld) [Entitic vol] 7.5 fL Invalid Interpretation Code 7.4 - 10.4 fL AO Workflow SS Platelets (Bld) [#/Vol] 258 103/mcL Invalid Interpretation Code 130 - 400 10^3/mcL AO Workflow SS RBC (Bld) [#/Vol] 4.61 106/mcL Invalid Interpretation Code 4.20 - 5.40 10^6/mcL AO Workflow SS WBC (Bld) [#/Vol] 5.6 103/mcL Invalid Interpretation Code 4.6 - 10.8 10^3/mcL AO Workflow SS Appearance (U) Clear (06/13/22 1:19 PM) Invalid Interpretation Code Clear AO Auto Urine SS Bacteria LM.HPF (Urine sed) [#/Area] Trace /HPF Invalid Interpretation Code AO Auto Urine SS Bilirubin Ql (U) Negative (06/13/22 1:19 PM) Invalid Interpretation Code Negative AO Auto Urine SS Color (U) Yellow (06/13/22 1:19 PM) Invalid Interpretation Code AO Auto Urine SS Glucose Test strip (U) [Mass/Vol] Negative Invalid Interpretation Code Negativemg/d L AO Auto Urine SS Hemoglobin Auto test strip (U) [Mass/Vol] Negative (06/13/22 1:19 PM) Invalid Interpretation Code Negative AO Auto Urine SS Ketones Ql (U) Negative Invalid Interpretation Code Negativemg/d L AO Auto Urine SS UA Leuk Est Negative (06/13/22 1:19 PM) Invalid Interpretation Code Negative AO Auto Urine SS UA Nitrite Negative (06/13/22 1:19 PM) Invalid Interpretation Code Negative AO Auto Urine SS UA pH 7.5 (06/13/22 1:19 PM) Invalid Interpretation Code 5.0 - 8.0 AO Auto Urine SS UA Protein Negative Invalid Interpretation Code Negativemg/d L AO Auto Urine SS UA RBC None Seen /HPF Invalid Interpretation Code None Seen/HPF AO Auto Urine SS UA Spec Grav 1.025 (06/13/22 1:19 PM) Invalid Interpretation Code 1.015-1.025 AO Auto Urine SS UA Specimen Type Clean Catch (06/13/22 1:19 PM) Invalid Interpretation Code AO Auto Urine SS UA Squam Epithelial 0-5 /HPF Invalid Interpretation Code None Seen/HPF AO Auto Urine SS UA Urobilinogen 1.0 E.U./dL Invalid Interpretation Code 0.2-1.0E.U./ dL AO Auto Urine SS WBC LM.HPF (Urine sed) [#/Area] 0-5 /HPF Invalid Interpretation Code None Seen/HPF AO Auto Urine SS LABORATORYOrdered By: SYSTEM SYSTEM on 06-13-2022 Calcium [Mass/Vol] 8.6 mg/dL Invalid Interpretation Code 8.4 - 10.2 mg/dL AO ADM SS Chloride [Moles/Vol] 106 mmol/L Invalid Interpretation Code 98 - 107 mmol/L AO ADM SS CO2 [Moles/Vol] 29 mmol/L Invalid Interpretation Code 22 - 29 mmol/L AO ADM SS Creatinine [Mass/Vol] 0.68 mg/dL Invalid Interpretation Code 0.55 - 1.02 mg/dL AO ADM SS Electrolyte Balance 6.0 mEq/L Invalid Interpretation Code 4.0 - 15.0 mEq/L AO ADM SS GFR 110 ml/min/1.73sqm Invalid Interpretation Code AO Chemistry S GFR Non- 91 ml/min/1.73sqm Invalid Interpretation Code AO Chemistry S Glucose [Mass/Vol] 107 mg/dL Invalid Interpretation Code 70 - 105 mg/dL AO ADM SS Potassium [Moles/Vol] 3.8 mmol/L Invalid Interpretation Code 3.5 - 5.1 mmol/L AO ADM SS Sodium [Moles/Vol] 141 mmol/L Invalid Interpretation Code 136 - 145 mmol/L AO ADM SS Urea nitrogen [Mass/Vol] 10 mg/dL Invalid Interpretation Code 7 - 18 mg/dL AO ADM SS Urea nitrogen/Creatinine [Mass ratio] 15 ratio Invalid Interpretation Code 7 - 27 ratio AO ADM SS UAon 06-13-2022 Color (U) Yellow Normal [facility] ([place] Comment on above: Performed By: #### U NIKKI SEYMORU #### [address] [address] Glucose (U) [Mass/Vol] Negative Normal Negative [facility] ([place] Comment on above: Performed By: #### U LION UA #### [address] [address] Ketones Ql (U) Negative Normal Negative [facility] ([place] Comment on above: Performed By: #### U AMICAO, UA #### [address] [address] UA Appear Clear Normal Clear [facility] ([place] Comment on above: Performed By: #### U AMICAO, UA #### [address] [place] [address] UA Blood Negative Normal Negative [facility] ([place] Comment on above: Performed By: #### U AMICAO, UA #### [address] [place] [address] UA Leuk Est Negative Normal Negative [facility] ([place] Comment on above: Performed By: #### U AMICAO, UA #### [address] [place] [address] UA Nitrite Negative Normal Negative [facility] ([place] Comment on above: Performed By: #### U AMICAO, UA #### [place] [place] [address] UA pH 7.5 Normal 5.0 - 8.0 [facility] ([place] Comment on above: Performed By: #### U AMICAO, UA #### [address] [place] [address] UA Protein Negative Normal Negative [facility] ([place] Comment on above: Performed By: #### U AMICAO, UA #### [address] [place] [address] UA Spec Grav 1.025 Normal 1.015-1.025 [facility] ([place] Comment on above: Performed By: #### U AMICAO, UA #### [address] [place] [address] UA Specimen Type Clean Catch Normal [facility] ([place] Comment on above: Performed By: #### U AMICAO, UA #### [place] [address] UA Urobilinogen 1.0 E.U./dL Normal 0.2-1.0 [facility] ([place]) Comment on above: Performed By: #### U NIKKI SEYMOUR #### [address] [place], [place] [address] Urobilinogen (U) [Mass/Vol] Negative Normal Negative [facility] ([place]) Comment on above: Performed By: #### U NIKKI SEYMOUR #### [address] [place], [place] [address] Absolute lymphocyte counton 05-10-2022 Lymphocytes Auto (Unsp spec) [#/Vol] 2.98 10*3/uL 0.83-4.51 [facility] Work Phone: [phone] Basophil percentageon 2021 Basophils/100 WBC (Bld) 0.4 % 0-1 [facility] Work Phone: [phone] Bilirubin [Mass/Vol] 1.30 mg/dL 0.20-1.00 [facility] Work Phone: [phone] Comment on above: For patients on eltr ombopag therapy, use of Dimension [place] TBIL is not recommended. Chloride [Moles/Vol] 108 mmol/L 98-107 [facility] Work Phone: [phone] Eosinophils/100 WBC (Bld) 1.0 % 0-5 [facility] Work Phone: [phone] Glucose [Mass/Vol] 157 mg/dL 74-106 [facility] Work Phone: [phone] Comment on above: Fasting Glucose resu lt greater than or equal to 126 mg/dL suggests DIABETES MELLITUS per A.D.A. criteria. Neutrophils (Bld) [#/Vol] 6.1 10*3/uL 2.0-7.7 [facility] Work Phone: [phone] Neutrophils/100 WBC (Bld) 62.0 % 47-70 [facility] Work Phone: [phone] Potassium [Moles/Vol] 3.4 mmol/L 3.5-5.1 [facility] [place] Work Phone: Protein [Mass/Vol] 7.4 g/dL 6.4-8.2 [facility] Work Phone: Sodium [Moles/Vol] 140 mmol/L 136-145 [facility] Work Phone: WBC (Bld) [#/Vol] 9.9 10*3/uL 4.4-11.0 [facility] Work Phone: Blood erythrocytes count (nu mber/volume)on 05-10-2022 RBC (Bld) [#/Vol] 4.74 10*6/uL 4.2-5.4 [facility] [place] Work Phone: Blood hemoglobin measurement (mass/volume)on 05-10-2022 Hemoglobin (Bld) [Mass/Vol] 13.1 g/dL 12.0-15.0 [facility] Work Phone: Blood lymphocytes/100 leukoc yteson 05-10-2022 Lymphocytes/100 WBC (Bld) 30.1 % 19-41 [facility] Work Phone: Blood monocytes/100 leukocyt eson 05-10-2022 Monocytes/100 WBC (Bld) 6.0 % 0-10 [facility] Work Phone: Blood platelet mean volumeon 05-10-2022 Platelet mean volume (Bld) [Entitic vol] 10.5 fL 6.2-12.0 [facility] Work Phone: Determination of erythrocyte mean corpuscular volume (MCV)on 05-10-2022 MCV (RBC) [Entitic vol] 85.9 fL 81-99 [facility] Work Phone: Hematocrit Auto (Bld) [Volum e fraction]on 05-10-2022 Hematocrit (Bld) [Volume fraction] 40.7 % 37-47 [facility] Work Phone: Laboratory - Chemistry and C hemistry - challengeon 05-10-2022 ALP [Catalytic activity/Vol] 80 U/L 45-117 [facility] Work Phone: ALT [Catalytic activity/Vol] 45 U/L 13-56 [facility] Work Phone: CO2 [Moles/Vol] 26.0 mmol/L 21.0-32.0 [facility] Work Phone: Globulin (S) [Mass/Vol] 4.3 g/dL 2.2-4.2 [facility] Work Phone: Urea nitrogen/Creatinine [Mass ratio] 13.4 mg/mg 10-20 [facility] Work Phone: Laboratory - Hematology and Cell countson 05-10-2022 Erythrocyte distribution width (RBC) [Entitic vol] 39.4 fL 35.1-43.9 [facility] Work Phone: Erythrocyte distribution width (RBC) [Ratio] 12.6 % 11.6-14.6 [facility] Work Phone: Immature granulocytes/100 WBC (Bld) 0.500 % 0.0-0.9 [facility] Work Phone: Comment on above: IG% - Immature Granu locytes (promyelocytes, myelocytes and metamyelocytes) > 1% indicates that a LEFT SHIFT is Present. MCH (RBC) [Entitic mass] 27.6 pg 27.0-32.0 [facility] Work Phone: Nucleated RBC/100 WBC (Bld) [Ratio] 0 % 0-5 [facility] Work Phone: MCHC Auto (RBC) [Mass/Vol]on 05-10-2022 MCHC (RBC) [Mass/Vol] 32.2 g/dL 32-36 [facility] Work [facility]: No Panel Informationon 05-10 Estimated Creatinine Clearance Calc 194.43 ml/min [facility] Work Phone: Estimated GFR (MDRD) Amer 104 mL/min >60 [facility] Work Phone: Comment on above: GFR Calc Estimated GFR (MDRD) Non-Af Amer 86 mL/min >60 [facility] Work Phone: Comment on above: Non- GFR Calc Platelets bldon 05-10-2022 Platelets (Bld) [#/Vol] 307 10*3/uL 150-450 [facility] Work Phone: Serum or plasma albumin meenu urement (mass/volume)on 05-10-2022 Albumin [Mass/Vol] 3.1 g/dL 3.2-5.0 [facility] Work Phone: Serum or plasma albumin/glob ulin mass ratioon 05-10-2022 Albumin/Globulin [Mass ratio] 0.7 {ratio} 0.9-2.4 [facility] Work Phone: Serum or plasma calcium meenu urement (mass/volume)on 05-10-2022 Calcium [Mass/Vol] 9.0 mg/dL 8.5-10.1 [facility] Work Phone: Serum or plasma creatinine m easurement (mass/volume)on 05-10-2022 Creatinine [Mass/Vol] 0.75 mg/dL 0.55-1.02 [facility] [place] Work Phone: Comment on above: The validity of the calculated GFR & GFRAA in patients over 70 years has not been determined. Clinical correlation is essential. Serum or plasma urea nitroge n measurement (mass/volume)on 05-10-2022 Urea nitrogen [Mass/Vol] 10 mg/dL - [facility] Work Phone: Thin prep Papanicolaou smear with manual screeningon 05-10-2022 Thin prep Papanicolaou smear with manual screening 31 U/L 15-37 [facility] Work Phone: Thin prep Papanicolaou smear with manual screening 6 5-15 [facility] Work Phone: Basophil percentageon 2021 Basophil percentage 10-25 SEEN /hpf 0-5 [facility] Work Phone: Bilirubin Test strip Ql (U)o n 01-27-2022 Bilirubin Ql (U) 1 mg/dL Negative [facility] Work Phone: Comment on above: COLOR OF URINE MAY A FFECT DIPSTICK RESULTS. Hyaline casts LM.LPF (Urine sed) [#/Area]on 01-27-2022 Hyaline casts (Urine sed) [#/Area] 5 /[LPF] 0-5 [facility] Work Phone: Ketones Test strip Ql (U)on 01-27-2022 Ketones Ql (U) Negative Negative [facility] Work Phone: Laboratory - Chemistry and C hemistry - challengeon 01-27-2022 Bilirubin Ql (U) Negative [facility] Work Phone: Glucose Ql (U) Negative [facility] Work Phone: Ketones Ql (U) Negative [facility] Work Phone: pH (U) 6.0 [pH] [facility] Work Phone: Specific gravity (U) [Rel density] 1.020 [facility] Work Phone: Urobilinogen (U) [Mass/Vol] Negative [facility] Work Phone: Laboratory - Hematology and Cell countson 01-27-2022 Hemoglobin Ql (U) Trace [facility] Work Phone: Laboratory - Specimen inform ationon 01-27-2022 Clarity (U) Cloudy [facility] Work Phone: Color (U) Straw [facility] Work Phone: Laboratory - Urinalysison Nitrite Ql (U) Negative [facility] Work Phone: Protein Ql (U) Trace [facility] Work Phone: Mucus LM Ql (Urine sed)on Mucus Ql (Urine sed) 3+ /hpf [facility] Work Phone: Nitrite Test strip Ql (U)on 01-27-2022 Nitrite Ql (U) Negative Negative [facility] Work Phone: No Panel Informationon 01-27 Urine Leukocytes Positive [facility] Work Phone: Urine Non-Hemolyzed Blood Non-Hemolyzed [facility] Work Phone: Protein Test strip Ql (U)on 01-27-2022 Protein Ql (U) 30 mg/dl Negative [facility] Work Phone: Squamous epithelial cells de tection in urine sediment by light microscopyon 01-27-2022 Epithelial cells.squamous LM Ql (Urine sed) 10-25 SEEN /hpf 5-10 [facility] Work Phone: Urine blood detectionon RBC Ql (U) Negative Negative [facility] Work Phone: RBC Ql (U) 0 SEEN /hpf 0-5 [facility] Work Phone: Urine clarityon 01-27-2022 Clarity (U) Clear Clear [facility] Work Phone: Urine color determinationon 01-27-2022 Color (U) Yellow Yellow [facility] Work Phone: Urine glucose detectionon Glucose Ql (U) Normal mg/dl Normal [facility] Work Phone: Urine leukocyte esterase det ection by dipstickon 01-27-2022 Leukocyte esterase Test strip Ql (U) 500 /ul Negative [facility] Work Phone: Urine pHon 01-27-2022 pH (U) 6.0 [pH] 5.0 - 8.0 [facility] Work Phone: Urine sediment bacteria coun t by microscopy (number/high power field)on 01-27-2022 Bacteria LM.HPF (Urine sed) [#/Area] 3 /[HPF] None Seen [facility] Work Phone: Urine specific gravity measu rementon 01-27-2022 Specific gravity (U) [Rel density] 1.020 1.002-1.030 [facility] Work Phone: Urobilinogen Auto test strip Ql (U)on 01-27-2022 Urobilinogen Ql (U) 1 mg/dl [facility]: XR Knee - left 4 Viewson IMPRESSION: LEFT KNEE: 1. Tricompartmental osteoarthritis, most prominent in the medial joint compartment and patellofemoral joint. 2. Chondrocalcinosis. 3. Synovial chondromatosis. 4. Small joint effusion in the suprapatellar compartment. RIGHT KNEE: 1. Mild degenerative changes. 2. Possible synovial chondromatosis. 3. No acute findings seen on limited imaging of the right knee. Nuclear Equipment Design Engineer: [facility] Transcribe Date/Time: Jan 21 2021 5:47P Dictated by : DAVE CASSIDY MD This examination was interpreted and the report reviewed and electronically signed by: DAVE CASSIDY MD on Jan 21 2021 5:52PM [facility] DIVISION OF RADIOLOGY * * *Final Report* * * DATE OF EXAM: Jan 21 2021 5:44PM WOX 5202 - XR KNEE 4V AP/PA BOTH+LAT/ALEXEI LT / PROCEDURE REASON: Acute pain of left knee * * * * Physician Interpretation * * * * LEFT KNEE, WITH BILATERAL KNEES 01/21/2021 HISTORY: Acute pain of left knee COMPARISON: None TECHNIQUE: Standing AP and PA views of bilateral knees. Bilateral patellar views. Lateral view of the left knee. RESULTS: LEFT KNEE: The bones are intact and normally aligned. There are no underlying bone lesions. There is moderate narrowing of the medial joint compartment with mild spur formation. No narrowing of the lateral joint compartment is seen, but there also is spur formation laterally. Moderate degenerative changes are present in the patellofemoral joint. There is chondrocalcinosis including the lateral meniscus. There also are several loose bodies in the posterior joint space. There is a small joint effusion in the suprapatellar compartment. RIGHT KNEE: The bones are intact. Alignment is normal. There are mild degenerative changes. There is chondrocalcinosis and/or loose bodies. DIVISION OF RADIOLOGY Provider, [facility] - 01/21/2021 * * *Final Report* * * DATE OF EXAM: Jan 21 2021 5:44PM WOX 5202 - XR KNEE 4V AP/PA BOTH+LAT/ALEXEI LT / PROCEDURE REASON: Acute pain of left knee * * * * Physician Interpretation * * * * LEFT KNEE, WITH BILATERAL KNEES 01/21/2021 HISTORY: Acute pain of left knee COMPARISON: None TECHNIQUE: Standing AP and PA views of bilateral knees. Bilateral patellar views. Lateral view of the left knee. RESULTS: LEFT KNEE: The bones are intact and normally aligned. There are no underlying bone lesions. There is moderate narrowing of the medial joint compartment with mild spur formation. No narrowing of the lateral joint compartment is seen, but there also is spur formation laterally. Moderate degenerative changes are present in the patellofemoral joint. There is chondrocalcinosis including the lateral meniscus. There also are several loose bodies in the posterior joint space. There is a small joint effusion in the suprapatellar compartment. RIGHT KNEE: The bones are intact. Alignment is normal. There are mild degenerative changes. There is chondrocalcinosis and/or loose bodies. IMPRESSION IMPRESSION: LEFT KNEE: 1. Tricompartmental osteoarthritis, most prominent in the medial joint compartment and patellofemoral joint. 2. Chondrocalcinosis. 3. Synovial chondromatosis. 4. Small joint effusion in the suprapatellar compartment. RIGHT KNEE: 1. Mild degenerative changes. 2. Possible synovial chondromatosis. 3. No acute findings seen on limited imaging of the right knee. Nuclear Equipment Design Engineer: [facility] Transcribe Date/Time: Jan 21 2021 5:47P Dictated by : DAVE CASSIDY MD This examination was interpreted and the report reviewed and electronically signed by: DAVE CASSIDY MD on Jan 21 2021 5:52PM EST [facility] Radiology Study observation (narrative) [facility] XR Knee - left 4 ViewsOrdere d By: [facility] Provider on 01-21-[address] [facility] Culture, urine Bacteria identified Cx Nom (U) Mixed Gram Pos & Gram Neg Org [facility] Work Phone: Influenza virus A and B and SARS-CoV-2 (COVID-19) Ag panel - Upper respiratory specim SARS-CoV-2 (COVID-19) RNA ISIDRO+probe Ql (Resp) [facility] Work Phone: Vital Signs Date Time Vital Sign Value Performing Clinician Facility 11-13-2024 13:57-0400 Diastolic blood pressure 90 mm[Hg] Sundeep Catrachita NANNY BABYSITTER.[employer] Work Phone: [facility] 11-13-2024 13:57-0400 Systolic blood pressure 167 mm[Hg] Sundeep Catrachita NANNY BABYSITTER.[employer] Work Phone: [facility] 11-13-2024 13:52-0400 Body mass index (BMI) [Ratio] 63.13 kg/m2 Sundeep Catrachita NANNY BABYSITTER.[employer] Work Phone: [facility] 11-13-2024 13:52-0400 Body weight 144.2 kg Sundeep Catrachita NANNY BABYSITTER.[employer] Work Phone: [facility] 11-13-2024 13:52-0400 Heart rate 75 /min Sundeep Catrachita NANNY BABYSITTER.[employer] Work Phone: [facility] 11-13-2024 13:52-0400 SaO2% (BldA) [Mass fraction] 97 % Sundeep Catrachita NANNY BABYSITTER.[employer] Work Phone: [facility] 08-07-2024 14:12-0400 Diastolic blood pressure 90 mm[Hg] Shauna Bello MD Work Phone: [facility] Comment on above: ? 08-07-2024 14:12-0400 Systolic blood pressure 145 mm[Hg] Shauna Bello MD Work Phone: [facility] Comment on above: ? 08-07-2024 13:12-0400 Body height 151.1 cm Shauna Bello MD Work Phone: [facility] 08-07-2024 13:12-0400 Body mass index (BMI) [Ratio] 62.04 kg/m2 Shauna Bello MD Work Phone: [facility] 08-07-2024 13:12-0400 Body weight 141.7 kg Shauna Bello MD Work Phone: [facility] 08-07-2024 13:12-0400 Heart rate 72 /min Shauna Bello MD Work Phone: [facility] 04-12-2024 13:13-0500 Diastolic blood pressure 84 mm[Hg] Sundeep Catrachita NANNY BABYSITTER.[employer] Work Phone: [facility] Comment on above: BP Calixto Average 04-12-2024 13:13-0500 Heart rate 74 /min Sundeep Catrachita NANNY BABYSITTER.[employer] Work Phone: [facility] 04-12-2024 13:13-0500 Systolic blood pressure 145 mm[Hg] Sundeep Catrachita NANNY BABYSITTER.[employer] Work Phone: [facility] Comment on above: BP Calixto Average 04-12-2024 12:59-0500 Body mass index (BMI) [Ratio] 64.14 kg/m2 Sundeep Catrachita NANNY BABYSITTER.[employer] Work Phone: [facility] 04-12-2024 12:59-0500 Body weight 146.5 kg Sundeep Catrachita NANNY BABYSITTER.[employer] Work Phone: [facility] 04-12-2024 12:59-0500 SaO2% (BldA) [Mass fraction] 97 % Sundeep Catrachita NANNY BABYSITTER.[employer] Work Phone: [facility] 02-17-2024 15:24-[address] ZION KHAN MD [facility] 02-17-2024 15:24-[address] ZION KHAN MD [facility] 02-17-2024 15:24-0400 Body height 149.[address] ZION KHAN MD [facility] 02-17-2024 15:24-0400 Body temperature 97.7 [degF] DR ZION KHAN MD [facility] 02-17-2024 15:24-0400 Body weight 148.[address] ZION KHAN MD [facility] 02-17-2024 15:24-0400 Diastolic Blood Pressure Non-Invasive 80 mm[Hg] DR ZION KHAN MD [facility] 02-17-2024 15:24-0400 Heart rate 80 /min DR ZION KHAN MD [facility] 02-17-2024 15:24-0400 Respiratory rate 18 /min DR ZION KHAN MD [facility] 02-17-2024 15:24-0400 Systolic Blood Pressure Non-Invasive 137 mm[Hg] DR ZION KHAN MD [facility] 07-26-2023 14:12-0500 Body temperature 99.19 [degF] Ilan Trinh APRN.[employer] Work Phone: [facility] 07-26-2023 14:12-0500 Body weight 146.97 kg Ilan Trinh APRN.[employer] Work Phone: [facility] 07-26-2023 14:12-0500 Diastolic blood pressure 84 mm[Hg] Ilan Trinh APRN.[employer] Work Phone: [facility] 07-26-2023 14:12-0500 Heart rate 67 /min Ilan Trinh APRN.[employer] Work Phone: [facility] 07-26-2023 14:12-0500 Respiratory rate 18 /min Ilan Trinh APRN.[employer] Work Phone: [facility] 07-26-2023 14:12-0500 SaO2% (BldA) [Mass fraction] 96 % Ilan Trinh APRN.[employer] Work Phone: [facility] 07-26-2023 14:12-0500 Systolic blood pressure 136 mm[Hg] Ilan James NANNY BABYSITTER.[employer] Work Phone: [facility] 08-11-2022 11:38-0400 Diastolic blood pressure 98 mm[Hg] Sundeep Catrachita NANNY BABYSITTER.[employer] Work Phone: [facility] 08-11-2022 11:38-0400 Systolic blood pressure 160 mm[Hg] Sundeep Catrachita NANNY BABYSITTER.[employer] Work Phone: [facility] 08-11-2022 11:11-0400 Body height 151.1 cm Sundeep Catrachita NANNY BABYSITTER.[employer] Work Phone: [facility] 08-11-2022 11:11-0400 Body temperature 97.81 [degF] Sundeep Catrachita NANNY BABYSITTER.[employer] Work Phone: [facility] 08-11-2022 11:11-0400 Body weight 141.52 kg Sundeep Catrachita NANNY BABYSITTER.[employer] Work Phone: [facility] 08-11-2022 11:11-0400 Heart rate 87 /min Sundeep Catrachita NANNY BABYSITTER.[employer] Work Phone: [facility] 08-11-2022 11:11-0400 Respiratory rate 14 /min Sundeep Catrachita NANNY BABYSITTER.[employer] Work Phone: [facility] 08-11-2022 11:11-0400 SaO2% (BldA) [Mass fraction] 97 % Sundeep Catrachita NANNY BABYSITTER.[employer] Work Phone: [facility] 06-13-2022 13:24-0500 Body temperature 98.06 [degF] [facility] 06-13-2022 13:24-0500 Diastolic Blood Pressure Non-Invasive 83 1 [facility] 06-13-2022 13:24-0500 Heart rate 73 /min [facility] 06-13-2022 13:24-0500 Respiratory rate 16 /min [facility] 06-13-2022 13:24-0500 Systolic Blood Pressure Non-Invasive 131 1 [facility] 05-10-2022 11:03-0500 Diastolic blood pressure 88 mm[Hg] Dr. Shauna Bello Work Phone: [facility] Work Phone: 05-10-2022 11:03-0500 Heart rate 72 /min Dr. Shauna Bello Work Phone: [facility] Work Phone: 05-10-2022 11:03-0500 Respiratory rate 16 /min Dr. Shauna Bello Work Phone: [facility] Work Phone: 05-10-2022 11:03-0500 SaO2% (BldA) [Mass fraction] 98 % Dr. Shauna Bello Work Phone: [facility] Work Phone: 05-10-2022 11:03-0500 Systolic blood pressure 124 mm[Hg] Dr. Shauna Bello Work Phone: [facility] Work Phone: 05-10-2022 07:56-0500 Body height 149.[address] Shauna Bello Work Phone: [facility] Work Phone: 05-10-2022 07:56-0500 Body mass index (BMI) [Ratio] 63.2 kg/m2 Dr. Shauna Bello Work Phone: [facility] Work Phone: 05-10-2022 07:56-0500 Body temperature 96.9 [degF] Dr. Shauna Bello Work Phone: [facility] Work Phone: 05-10-2022 07:56-0500 Body weight 141.[address] Shauna Bello Work Phone: [facility] Work Phone: 05-03-2022 15:24-0500 Body temperature 99.1 [degF] Nona Older NANNY BABYSITTER.[employer] Work Phone: [facility] 05-03-2022 15:24-0500 Body weight 143.34 kg Nona Older NANNY BABYSITTER.[employer] Work Phone: [facility] 05-03-2022 15:24-0500 Diastolic blood pressure 88 mm[Hg] Nona Older NANNY BABYSITTER.[employer] Work Phone: [facility] 05-03-2022 15:24-0500 Heart rate 78 /min Nona Older NANNY BABYSITTER.[employer] Work Phone: [facility] 05-03-2022 15:24-0500 Respiratory rate 18 /min Nona Older NANNY BABYSITTER.[employer] Work Phone: [facility] 05-03-2022 15:24-0500 SaO2% (BldA) [Mass fraction] 97 % Nona Older NANNY BABYSITTER.[employer] Work Phone: [facility] 05-03-2022 15:24-0500 Systolic blood pressure 146 mm[Hg] Nona Older NANNY BABYSITTER.[employer] Work Phone: [facility] 01-27-2022 15:46-0400 Body temperature 98 [degF] Dr. Shauna Bello Work Phone: [facility] Work Phone: 01-27-2022 15:46-0400 Diastolic blood pressure 96 mm[Hg] Dr. Shauna Bello Work Phone: [facility] Work Phone: 01-27-2022 15:46-0400 Heart rate 104 /min Dr. Shauna Bello Work Phone: [facility] Work Phone: 01-27-2022 15:46-0400 Respiratory rate 16 /min Dr. Shauna Bello Work Phone: [facility] Work Phone: 01-27-2022 15:46-0400 SaO2% (BldA) [Mass fraction] 97 % Dr. Shauna Bello Work Phone: [facility] Work Phone: 01-27-2022 15:46-0400 Systolic blood pressure 140 mm[Hg] Dr. Shauna Bello Work Phone: [facility] Work Phone: 01-27-2022 13:09-0400 Body temperature 98.29 [degF] Bruce Rubio NANNY BABYSITTER.[employer] Work Phone: [facility] 01-27-2022 13:09-0400 Body weight 141.43 kg Bruce Rubio NANNY BABYSITTER.[employer] Work Phone: [facility] 01-27-2022 13:09-0400 Diastolic blood pressure 82 mm[Hg] Bruce Rubio NANNY BABYSITTER.[employer] Work Phone: [facility] 01-27-2022 13:09-0400 Heart rate 64 /min Bruce Rubio NANNY BABYSITTER.[employer] Work Phone: [facility] 01-27-2022 13:09-0400 Respiratory rate 16 /min Bruce Rubio NANNY BABYSITTER.[employer] Work Phone: [facility] 01-27-2022 13:09-0400 SaO2% (BldA) [Mass fraction] 97 % Bruce Rubio NANNY BABYSITTER.[employer] Work Phone: [facility] 01-27-2022 13:09-0400 Systolic blood pressure 128 mm[Hg] Bruce Rubio NANNY BABYSITTER.[employer] Work Phone: [facility] Encounters Encounter Date Encounter Type Care Provider Facility Start: 03-02-2025 ambulatory SHAUNA BELLO Facilit y:[facility] Start: 02-23-2025 End: 02-23-2025 ambulatory SHAUNA BELLO Facility:[facility] Start: 02-23-2025 End: 02-23-2025 ambulatory SHAUNA BELLO Facility:[facility] Start: 02-17-2025 End: 02-17-2025 ambulatory SHAUNA Harjit BELLO Facility:[facility] Start: 11-15-2024 End: 11-15-2024 Follow-up encounter Sundeep Domínguez APRN.[employer] Work Phone: [facility] Start: 11-14-2024 End: 11-14-2024 Telephone encounter Shauna Bello MD Work Phone: [facility] Start: 11-13-2024 End: 11-13-2024 Patient encounter procedure Sundeep Domínguez APRN.[employer] Work Phone: [facility] Comment on above: Acute UTI (Primary D x); Dysuria; Urinary frequency; Primary hypertension; Generalized edema; Class 3 severe obesity due to excess calories with body mass index (BMI) of 60.0 to 69.9 in adult, unspecified whether serious comorbidity present (HCC) Start: 11-13-2024 End: 11-13-2024 ambulatory SUNDEEP DOMÍNGUEZ Facility:[facility] Start: 10-18-2024 End: 10-20-2024 Telephone encounter Shauna Bello MD Work Phone: [facility] Comment on above: Results Start: 10-17-2024 End: 10-17-2024 ambulatory SHAUNA BELLO Facility:[facility] Start: 09-02-2024 End: 09-04-2024 Refill Shauna Bello MD Work Phone: [facility] Comment on above: Refill Request Start: 08-07-2024 End: 08-07-2024 ambulatory SHAUNA BELLO Facility:[facility] Start: 08-07-2024 End: 08-07-2024 Office outpatient visit 25 minutes Shauna Bello MD Work Phone: [facility] Comment on above: Primary hypertension (Primary Dx); Panic disorder without agoraphobia; Hyperglycemia; Vitamin D deficiency; Cold sore; Elevated hemoglobin A1c; Mixed hyperlipidemia; B12 deficiency; Swelling of left foot; Dyspnea on exertion; Arthritis of knee, left; Class 3 severe obesity due to excess calories with body mass index (BMI) of 60.0 to 69.9 in adult, unspecified whether serious comorbidity present (HCC) Start: 07-04-2024 End: 08-04-2024 ambulatory Shauna Bello MD Work Phone: [facility] [place] Start: 06-04-2024 End: 06-04-2024 Emergency department patient visit [facility] Facility:[facility] Start: 05-10-2024 End: 05-12-2024 Telephone encounter Shauna Bello MD Work Phone: [facility] [place] Comment on above: Patient Question Start: 04-28-2024 End: 04-29-2024 Telephone encounter Shauna Bello MD Work Phone: [facility] [place] Comment on above: Results Start: 04-25-2024 End: 04-25-2024 ambulatory SUNDEEP DOMÍNGUEZ Facility:[facility] Start: 04-17-2024 End: 04-17-2024 Telephone encounter Shauna Bello MD Work Phone: [facility] Comment on above: Results Start: 04-14-2024 End: 04-14-2024 Telephone encounter Sundeep Domínguez APRN.[employer] Work Phone: [facility] [place] Comment on above: Results Start: 04-12-2024 End: 04-12-2024 ambulatory SUNDEEP CATRACHITA Facility:[facility] Start: 04-12-2024 End: 04-12-2024 Patient encounter procedure Sundeep Domínguez [employer]NY BABYSITTER.[employer] Work Phone: [facility] [place] Comment on above: Primary hypertension (Primary Dx); Migraine without aura and without status migrainosus, not intractable; Chronic bronchitis, unspecified chronic bronchitis type (HCC); Encounter for immunization; Screening for depression; Vitamin D deficiency; Elevated glucose; Elevated triglycerides with high cholesterol; Encounter for therapeutic drug monitoring; Cardiac murmur; Osteoarthritis of multiple joints, unspecified osteoarthritis type Start: 04-11-2024 End: 04-11-2024 Telephone encounter Shauna Bello MD Work Phone: Internal [facility] [place] Comment on above: Letter Start: 02-17-2024 End: 02-17-2024 Emergency department patient visit DR ZION KHAN MD [facility] Start: 07-28-2023 ambulatory Shauna burns MD Work Phone: Internal Medicine [facility] Start: 07-26-2023 End: 07-26-2023 Subsequent hospital visit by physician Xr [facility] [place] Work Phone: Radiology Comment on above: Pain [R52] Start: 07-26-2023 End: 07-26-2023 Patient encounter procedure Ilan Trinh APRN.EXTRACT WRINGER Work Phone: [facility] Comment on above: Pain (Primary Dx) Start: 08-11-2022 End: 08-11-2022 Patient encounter procedure Sundeep Domínguez APRN.EXTRACT WRINGER Work Phone: Internal Medicine [place] Comment on above: Primary hypertension (Primary Dx); Migraine without aura and without status migrainosus, not intractable; Panic disorder without agoraphobia; Chronic bronchitis, unspecified chronic bronchitis type (HCC); BMI 60.0-69.9, adult (HCC); Screening mammogram for breast cancer; Screening for depression; Colon cancer screening Start: 07-15-2022 Telephone encounter Shauna mae MD Work Phone: Internal Medicine [place] Comment on above: copy of letter Start: 07-09-2022 Telephone encounter Shauna mae MD Work Phone: Internal Medicine [place] Comment on above: Orders Start: 06-13-2022 End: 06-13-2022 Emergency department patient [facility] Facility:B Start: 06-13-2022 End: 06-13-2022 [facility] Start: 05-10-2022 End: 05-10-2022 Emergency department patient visit Dr. Shauna Bello Work Phone: [facility] Start: 05-04-2022 Telephone encounter Bruce cantu APRN.EXTRACT WRINGER Work Phone: [facility] Comment on above: Results Start: 05-03-2022 End: 05-03-2022 Patient encounter procedure Nona Langley EXTR[employer] WRINGER Work Phone: [facility] Comment on above: Acute cough (Primary Dx); Acute nonintractable headache, unspecified headache type Start: 01-27-2022 End: 01-27-[address] Shauna Bello Work Phone: [facility] Work Phone: Start: 01-27-2022 End: 01-27-[address] Shauna Bello Work Phone: [facility], Specimen Start: 01-27-2022 End: 01-27-[address] Shauna Bello Work Phone: [facility] Start: 01-27-2022 End: 01-27-2022 Patient encounter procedure Bruce Bergeron APRN.EXTRACT WRINGER Work Phone: [facility] Comment on above: Impacted cerumen of left ear (Primary Dx) Start: 01-21-2021 End: 01-21-2021 Subsequent hospital visit by physician Xr [facility] Work Phone: Radiology Comment on above: Acute pain of left k nee [M25.562] Procedures Date Procedure Procedure Detail Performing Clinician Start: 11-13-2024 Urnls dip stick/tabl et rgnt auto w/o microscopy Sundeep Domínguez APRN.EXTRACT WRINGER Work Phone: Start: 10-17-2024 Lipid 1996 panel - S [place] or Plasma Shauna Bello MD Work Phone: Start: 04-12-2024 Adult depression screening assessment Sundeep Domínguez APRN.EXTRACT WRINGER Work Phone: Start: 04-12-2024 Lipid 1996 panel - S [place] or Plasma Sundeep Domínguez NANNY BABYSITTER.EXTRACT WRINGER Work Phone: Start: 07-26-2023 Radex ribs uni w/posteroant ch minimum 3 views Ilan Trinh NANNY BABYSITTER.EXTRACT WRINGER Work Phone: Start: 08-11-2022 Lipid 1996 panel - S [place] or Plasma Ilan Trinh NANNY BABYSITTER.EXTRACT WRINGER Work Phone: Start: 05-10-2022 Plain chest X-ray Dr. Feliz Bello Work Phone: Start: 01-21-2021 Radiologic exam knee complete 4/more views Ana Bravo PA-C Work Phone: Start: 05-20-2018 Adult depression screening assessment Bruce Bergeron NANNY BABYSITTER.EXTRACT WRINGER Work Phone: None (qualifier value) SAIMA DYKES DO SARS-CoV-2 & FLU Ant igen (Rapid) Dr. Shauna Bello Work Phone: Urine culture Dr. Shauna smith Work Phone: Plan of Treatment Date Care Activity Detail Author Start: 06-13-2032 Urine microalbumin profile [facility] Start: 10-17-2029 Lipid panel Lipid Screening [facility] Start: 04-12-2029 Lipid panel Lipid Screening [facility] Start: 10-18-2027 Diabetes Screening Diabetes Screen[facility] Start: 08-12-2027 Lipid panel Lipid Screening [facility] Start: 04-12-2027 Diabetes Screening Diabetes Screenin [facility] Start: 11-13-2025 Annual PCP Team [employer]ing [employer] Tender shaina Disease Visit Annual PCP Team Chronic Disease Visit [facility] Start: 09-22-2025 Screening for malign ant neoplasm of colon [facility] Start: 08-11-2025 Diabetes Screening Diabetes Screenin [facility] Start: 08-07-2025 Annual PCP Team [employer]ing [employer] Tender shaina Disease Visit Annual PCP Team Chronic Disease Visit [facility] Start: 05-09-2025 End: 05-09-2025 Patient encounter procedure 05/09/2025 1:00 PM EST Office Visit Internal [facility] [place] [address] [place] [address] Sundeep Domínguez APRN.EXTRACT WRINGER [address] [facility] [place] [address] 3 month follow up [facility] [place] Comment on above: 3 month follow up Start: 04-12-2025 Annual PCP Team Printing [employer] Tender shaina Disease Visit Annual PCP Team Chronic Disease Visit [facility] Start: 04-12-2025 Covid-19 Vaccine ( season) Covid-19 Vaccine () [facility] Comment on above: Postponed from 01/22 (Declined at this time) Start: 04-12-2025 Depression Screening Depression Scre ening [facility] Start: 02-13-2025 End: 02-13-2025 Patient encounter procedure 02/13/2025 3:20 PM EDT Office Visit Internal Medicine [place] [address] [place] [address] Shauna Bello MD [address] [place] [address] 3 Month follow up [facility] [place] Comment on above: 3 Month follow up Start: 12-11-2024 End: 12-11-2024 Patient encounter procedure 12/11/2024 1:20 PM EDT Office Visit Internal Medicine [place] [address] [place] [address] Sundeep Domínguez APRN.EXTRACT WRINGER [address] [facility] [place] [address] blood pressure check [facility] [place] Comment on above: blood pressure check Start: 11-07-2024 End: 11-07-2024 Patient encounter procedure 11/07/2024 1:40 PM EDT Office Visit [facility] [place] [address] [place] [address] Sundeep Domínguez APRN.EXTRACT WRINGER [address] [facility] [place] [address] 3 month follow up [facility] [place] Comment on above: 3 month follow up Start: 09-04-2024 End: 09-04-2024 Patient encounter procedure 09/04/2024 1:40 PM EDT Office Visit [facility] [place] [address] [place] [address] Sundeep Domínguez APRN.EXTRACT WRINGER [address] [place] [address] 4 week follow up [facility] [place] Comment on above: 4 week follow up Start: 08-07-2024 End: 11-06-2024 25-hydroxyvitamin D3 [Mass/volume] in Serum or Plasma VITAMIN D 25 HYDROXY Lab Routine Vitamin D deficiency Expected: 08/07/2024, Expires: 11/06/2024 [facility] Work Phone: Comment on above: Expected: 08/07/2024 , Expires: 11/06/2024 Start: 08-07-2024 End: 11-06-2024 Comprehensive metabolic 2000 panel - Serum or Plasma COMPREHENSIVE METABOLIC PANEL Lab Routine Primary hypertension Hyperglycemia Elevated hemoglobin A1c Expected: 08/07/2024, Expires: 11/06/[address] [facility] Comment on above: Expected: 08/07/2024 , Expires: 11/06/2024 Start: 08-07-2024 End: 11-06-2024 Hemoglobin A1c in Blood HEMOGLOBIN A1C Lab Routine Hyperglycemia Elevated hemoglobin A1c Expected: 08/07/2024, Expires: 11/06/[address] [facility] Comment on above: Expected: 08/07/2024 , Expires: 11/06/2024 Start: 08-07-2024 End: 11-06-2024 Lipid 1996 panel - Serum or Plasma LIPID PANEL BASIC Lab Routine Primary hypertension Mixed hyperlipidemia Expected: 08/07/2024, Expires: 11/06/[address] [facility] Comment on above: Expected: 08/07/2024 , Expires: 11/06/2024 Start: 08-07-2024 End: 08-07-2024 Patient encounter procedure 08/07/2024 1:20 PM EDT Office Visit [facility] [place] [address] [place] [address] Shauna Bello MD [address] [place] [address] 3 M FOLLOW UP R/S FROM 08/01 [facility] [place] Comment on above: 3 M FOLLOW UP R/S [facility] 08/01 Start: 08-01-2024 End: 08-01-2024 Patient encounter procedure 08/01/2024 10:20 AM EDT Office Visit Internal [facility] [address] [place] [address] Shauna Bello MD [address] [place] [address] 3 month follow up [facility] [place] Comment on above: 3 month follow up Start: 04-25-2024 End: 04-25-2024 Patient encounter procedure 04/25/2024 2:40 PM EST Office Visit Cardiology [address] [place], [place] [id number] Cardiac murmur [R01.1] Cardiology Comment on above: Cardiac murmur [R01. 1] Start: 04-12-2024 End: 07-12-2024 25-hydroxyvitamin D3 [Mass/volume] in Serum or Plasma [facility] Comment on above: Expected: 04/12/2024 , Expires: 07/12/2024 Start: 04-12-2024 End: 07-12-2024 Cobalamin (Vitamin B12) [Mass/volume] in Serum or Plasma [facility] Comment on above: Expected: 04/12/2024 , Expires: 07/12/2024 Start: 04-12-2024 End: 07-12-2024 Comprehensive metabolic 2000 panel - Serum or Plasma [facility] Work Phone: Comment on above: Expected: 04/12/2024 , Expires: 07/12/2024 Start: 04-12-2024 End: 07-12-2024 Hemoglobin A1c in Blood [facility] Comment on above: Expected: 04/12/2024 , Expires: 07/12/2024 Start: 04-12-2024 End: 07-12-2024 LIPID PANEL, NONFASTING [facility] Comment on above: Expected: 04/12/2024 , Expires: 07/12/2024 Start: 04-12-2024 End: 04-12-2024 Patient encounter procedure 04/12/2024 1:00 PM EST Office Visit Internal [facility] [place] [address] [place] [address] Sundeep Domínguez APRN.EXTRACT WRINGER [address] [place] [address] DRIVING FOLLOW UP [facility] [place] Comment on above: DRIVING FOLLOW UP Start: 01-23-2024 Covid-19 Vaccine ( season) Covid-19 Vaccine ( season) [facility] Start: 01-23-2024 Covid-19 Vaccine () Covid-19 Vaccine () [facility] Start: 01-23-2024 Influenza vaccination Influenza Vacc ine (#1) [facility] Start: 08-12-2023 ANNUAL PCP TEAM HAY SORTER SHAINA DISEASE VISIT ANNUAL PCP TEAM CHRONIC DISEASE VISIT [facility] Start: 05-24-2023 Depression Assessment Depression Ass essment [facility] Start: 01-22-2023 Influenza vaccination Influenza Vacc ine (#1) [facility] Start: 11-20-2022 Influenza vaccination INFLUENZA (#1) [facility] Comment on above: Postponed from 01/22 (Declined at this time) Start: 07-10-2022 End: 09-09-2022 25-hydroxyvitamin D3 [Mass/volume] in Serum or Plasma VITAMIN D 25 HYDROXY Lab Routine Vitamin D deficiency Expected: 07/10/2022, Expires: 09/09/2022 [facility] Work Phone: Comment on above: Expected: 07/10/2022 , Expires: 09/09/2022 Start: 07-10-2022 End: 09-09-2022 CBC panel - Blood by Automated count CBC Lab Routine Encounter for long-term current use of medication Expected: 07/10/2022, Expires: 09/09/2022 [facility] Work Phone: Comment on above: Expected: 07/10/2022 , Expires: 09/09/2022 Start: 07-10-2022 End: 09-09-2022 Comprehensive metabolic 2000 panel - Serum or Plasma COMP METABOLIC PANEL Lab Routine Encounter for long-term current use of medication Elevated glucose Vitamin D deficiency Expected: 07/10/2022, Expires: 09/09/2022 [facility] Work Phone: Comment on above: Expected: 07/10/2022 , Expires: 09/09/2022 Start: 07-10-2022 End: 09-09-2022 Hemoglobin A1c in Blood HGB A1C Lab Routine Encounter for long-term current use of medication Elevated glucose Expected: 07/10/2022, Expires: 09/09/2022 [facility] Work Phone: Comment on above: Expected: 07/10/2022 , Expires: 09/09/2022 Start: 07-10-2022 End: 09-09-2022 Lipid 1996 panel - Serum or Plasma LIPID PANEL BASIC Lab Routine Elevated triglycerides with high cholesterol Expected: 07/10/2022, Expires: 09/09/2022 [facility] Work Phone: Comment on above: Expected: 07/10/2022 , Expires: 09/09/2022 Start: 06-30-2022 LIPID SCREEN LIPID SCREEN [facility] Start: 05-24-2022 DEPRESSION ASSESSMENT [facility] Start: 05-03-2022 End: 05-17-2022 Influenza virus A and B RNA and SARS-CoV-2 (COVID-19) N gene panel - Respiratory specimen by ISIDRO with probe detection [facility] Work Phone: Comment on above: Expected: 05/03/2022 , Expires: 05/17/2022 Start: 01-22-2022 Influenza vaccination INFLUENZA (#1) [facility] Start: 11-17-2021 Urine microalbumin profile DTA P,TDAP,TD (2 - Td or Tdap) [facility] Start: 05-24-2021 DEPRESSION ASSESSMENT DEPRESSION ASS ESSMENT [facility] Start: 05-19-2021 DIABETES SCREEN DIABETES SCREEN [facility] Start: 05-20-2019 Adult depression scr eening assessment DEPRESSION SCREENING [facility] Start: 2018 Pneumococcal Vaccine : 50+ (2 of 2 - PCV) Pneumococcal Vaccine: 50+ (2 of 2 - PCV) [facility] Start: 2018 SHINGRIX VACCINE (1 of 2) JOHNSON GRIX VACCINE (1 of 2) [facility] Start: 2013 COLOGUARD (FIT-DNA) COLOGUARD (FIT-D NA) [facility] Start: 2013 Colonoscopy [address] [facility] Start: 2013 COLORECTAL CANCER SCREENING COLORECTAL CANCER SCREENING [facility] Start: [address] COLONOGRAPHY [facility] Start: 2013 FECAL OCCULT BLOOD FECAL OCCULT BLOO D [facility] Start: 2013 Screening for malign ant neoplasm of colon [facility] Start: 2013 SIGMOIDOSCOPY SIGMOIDOSCOPY [facility] Start: 07-23-2008 PAP TESTING PAP TESTING [facility] Start: 07-23-2008 Screening for malign ant neoplasm of cervix Pap Testing [facility] Start: [address] [facility] Start: 2008 Screening for malign ant neoplasm of breast Mammogram Screening [facility] Start: 07-23-2006 Screening for malign ant neoplasm of cervix Cervical Cancer Screening [facility] Start: 1998 HPV TESTING HPV TESTING [facility] Start: 1998 Screening for malign ant neoplasm of cervix HPV Testing [facility] Start: 1987 Hepatitis B Vaccine (1 of 3 - 19+ 3-dose series) Hepatitis B Vaccine (1 of 3 - 19+ 3-dose series) [facility] Start: 1986 BP CONTROLLED (<130/80) BP CONTROLLE D (<130/80) [facility] Start: 1986 Depression Screening Depression Scre ening [facility] Start: 1986 HEPATITIS C SCREENING HEPATITIS C SC REENING [facility] Start: 1986 HIV SCREENING HIV SCREENING [facility] Start: 1968 COVID-19 VACCINE (#1) COVID-19 VACCI NE (#1) [facility] Start: 1968 HEPATITIS B (1 of 3 - 3-dose series) HEPATITIS B (1 of 3 - 3-dose series) [facility] Start: 1968 Hepatitis B Vaccine (1 of 3 - 3-dose series) Hepatitis B Vaccine (1 of 3 - 3-dose series) [facility] Bacteria identified in Urine by Culture BACTERIAL CULTURE, URINE Microbiology Routine Acute UTI 11/13/2024 2:[address] [facility] COLOGUARD COLOGUARD Lab Ro utine Colon cancer screening Ordered: 08/11/2022 [facility] Work Phone: Comment on above: Ordered: 08/11/2022 End: 08-03-2025 DBT Breast - bilateral screening PATRICIA SCREENING W JERICHO Radiology Routine Encounter for screening mammogram for breast cancer 1 Occurrences starting 07/04/2024 until 08/03/2025 [facility] Work Phone: Comment on above: 1 Occurrences starti ng 07/04/2024 until 08/03/2025 End: 04-12-2025 Echocardiography ECHO Cardiology Routine Cardiac murmur 1 Occurrences starting 04/12/2024 until 04/12/[address] [facility] Comment on above: 1 Occurrences starti ng 04/12/2024 until 04/12/2025 End: 09-10-2023 PATRICIA SCREENING W JERICHO PATRICIA SCREENING W JERICHO Radiology Routine Screening mammogram for breast cancer 1 Occurrences starting 08/11/2022 until 09/10/2023 [facility] Work Phone: Comment on above: 1 Occurrences starti ng 08/11/2022 until 09/10/2023 End: 08-26-2024 MG Breast Screening PATRICIA SCREENING Radiology Routine Encounter for screening mammogram for breast cancer 1 Occurrences starting 07/28/2023 until 08/26/2024 [facility] Work Phone: Comment on above: 1 Occurrences starti ng 07/28/2023 until 08/26/2024 Patient Education ED Viral Syndr ome (Adult) [facility] Work Phone: Patient referral [facility] Work Phone: UA DIP B/O UA DIP B/O Lab R outine Acute UTI Dysuria Urinary frequency Ordered: 11/13/2024 [facility] Work Phone: Comment on above: Ordered: 11/13/2024 [facility] Immunizations Immunization Date Immunization Notes Care Provider Fa cility 04-12-2024 influenza, seasonal, injectable Sundeep Catrachita NANNY BABYSITTER.EXTRACT WRINGER Work Phone: [facility] 06-13-2022 tetanus toxoid, redu siddharth diphtheria toxoid, and acellular pertussis vaccine, adsorbed SAIMA DYKES [facility] 03-14-2019 influenza, injectabl e, quadrivalent, preservative free Sundeep Catrachita NANNY BABYSITTER.EXTRACT WRINGER Work Phone: [facility] Work Phone: 03-14-2019 influenza virus vacc ine, unspecified formulation Ilan Trinh [employer]ANNY BABYSITTER.EXTRACT WRINGER Work Phone: [facility] 03-24-2018 influenza, injectabl e, quadrivalent, preservative free Sundeep Catrachita NANNY BABYSITTER.EXTRACT WRINGER Work Phone: [facility] Work Phone: 03-24-2018 influenza, seasonal, injectable Bruce Rubio NANNY BABYSITTER.EXTRACT WRINGER Work Phone: [facility] 10-17-2013 TD(adult) unspecifie d formulation Sundeep Catrachita NANNY BABYSITTER.EXTRACT WRINGER Work Phone: [facility] Work Phone: 10-17-2013 tetanus and diphther ia toxoids, adsorbed, preservative free, for adult use (2 Lf of tetanus toxoid and 2 Lf of diphtheria toxoid) Dr. Shauna Bello Work Phone: [facility] Work Phone: 11-18-2011 pneumococcal polysaccharide vaccine, 23 valent Bruce Bergeron NANNY BABYSITTER.EXTRACT WRINGER Work Phone: [facility] 11-18-2011 tetanus toxoid, redu siddharth diphtheria toxoid, and acellular pertussis vaccine, adsorbed Bruce Bergeron NANNY BABYSITTER.EXTRACT WRINGER Work Phone: [facility] 03-11-2009 influenza virus vacc ine, unspecified formulation Bruce King NANNY BABYSITTER.EXTRACT WRINGER Work Phone: [facility] Work Phone: 03-21-2007 influenza virus vacc ine, unspecified formulation Bruce Bergeron NANNY BABYSITTER.EXTRACT WRINGER Work Phone: [facility] Work Phone: 03-23-2006 influenza virus vacc ine, unspecified formulation Bruce Bergeron NANNY BABYSITTER.EXTRACT WRINGER Work Phone: [facility] Work Phone: 03-23-2005 influenza virus vacc ine, unspecified formulation Bruce Bergeron NANNY BABYSITTER.EXTRACT WRINGER Work Phone: [facility] Work Phone: Payers Date Payer Category Payer Self-pay [id number] 2022 Medicaid [id number] 2015 Medicaid [id number] 2015 Unknown [facility] [id number] 7ea [id number] 1968 Unknown [id number] 1968 Unknown [id number] Unknown [id number] Social History Date Type Detail Facility Start: 06-02-2017 End: 05-03-2022 Tobacco smoking status NHIS Never smoked tobacco [facility] Work Phone: Start: 06-02-2017 End: 05-03-2022 Tobacco use and exposure Smokeless tobacco non-user [facility] Work Phone: Start: 01-27-2022 End: 11-13-2024 Alcohol intake Current non-drinker of alcohol (finding) [facility] Start: 1970 Sex Assigned At Not on file [facility] Start: 12-22-2020 End: 01-27-2022 Exposure to SARS-CoV-2 (event) Not sure [facility] Start: 01-27-2022 End: 05-10-2022 Tobacco smoking status NHIS Unknown if ever smoked [facility] Work Phone: Start: 1970 Sex Assigned At Female W [facility] Work Phone: Sex Assigned At Sex [facility] Start: 07-26-2023 End: 04-12-2024 History of Social function [facility] Work Phone: Start: 07-26-2023 End: 04-12-2024 Tobacco use panel [facility] Work Phone: Adult Depression Screening Assessment [address] [facility] Work Phone: Medical Equipment Procedure Code Equipment Code Equipment Origin al Text Equipment Identifier Dates Test blood sugar (s) 1 times daily. Dx: Other DM Code R73.9 Insulin: No [id number] Start: 08-07-2024 Use with blood g lucose test once daily. R73.9 Hyperglycemia [id number] Start: 08-07-2024 Functional Status Date Assessment Result Facility 02-17-2024 Functional Status ID band on, Call device within reach, Bed in low position, Wheels locked, Bedside Cart Locked, Visitor at bedside, Safety level maintained [facility] 06-13-2022 Functional Status ID band on, Allergy Band on, Call device within reach, Bed in low position, Wheels locked, Upper/Half-Length side-rails up, Phone within reach, personal items within reach, Visitor at bedside [facility] 11-14-2014 Are you deaf, or do you have serious difficulty hearing No 11/14/2014 2:41 PM EDT Naomy Rahman LPN No [facility] 11-14-2014 Are you blind, or do you have serious difficulty seeing, even when wearing glasses No 11/14/2014 2:41 PM EDT Naomy Rahman LPN No [facility] 11-14-2014 Do you have serious difficulty walking or climbing stairs No 11/14/2014 2:41 PM EDT Naomy Rahman LPN No [facility] 11-14-2014 Do you have difficul ty dressing or bathing No 11/14/2014 2:41 PM EDT Naomy Rahman LPN [facility] 11-14-2014 Because of a physica l, mental, or emotional condition, do you have difficulty doing errands alone such as visiting a physician's office or shopping No 11/14/2014 2:41 PM EDT Naomy Rahman LPN [facility] Mental Status Date Assessment Result Facility 02-17-2024 Mental Status Oriented x 4 [facility] 06-13-2022 Mental Status Oriented x 4 [facility] 05-10-2022 Cognitive function Level Of Cons ciousness Awake;Alert;Appropriate;Fol lows Commands [facility] Work Phone: 11-14-2014 Because of a physica l, mental, or emotional condition, do you have serious difficulty concentrating, remembering, or making decisions No 11/14/2014 2:41 PM EDT Naomy Rahman LPN [facility] Clinical Notes 01-21-2021 to 03-02-2025 Telephone Encounter - Maryjo Hawk LPN - 11/15/2024 2:40 PM EDTTelephone Encounter - Maryjo Hawk LPN - 11/15/2024 2:40 PM EDTTelephone Encounter - Maryjo Hawk LPN - 11/14/2024 10:42 AM EDT Note Date & Type Note Facility 03-02-2025 Note HNO ID: [id number] Author: WILDA TAYLOR SiVerionvicky Jin Service: ? Author Type: Prefitter Doors Type: Progress Notes Filed: 03/02/2025 14:17 Note Text: Radiology Service Progress Note PATIENT NAME: Anastasia Heller DATE OF SERVICE: March 02, 2025 TIME: 2:17 PM PATIENT IDENTITY VERIFICATION COMPLETED USING TWO (2) IDENTIFIERS: Name and Date of confirmed by patient verbally. FALL SCREENING: Has the patient had 2 falls in the last year or 1 fall with injury or currently using an Ambulatory Assistive Device (Walker, Cane, Wheelchair, Crutches, etc.)? No PATIENT GENDER DATA: Assigned female at . status: : No status: NO. PATIENT RELEVANT IMPLANT DATA REVIEWED: Not Applicable PATIENT PRESENTS WITH AN IMPLANTABLE OR ATTACHED HEAD FILTER TANK TENDER HELPER: No RADIOLOGY DEPARTMENT: Mammography PERIPHERAL IV DATA: Not applicable SIGNED BY: Wilda Taylor [employer] March 02, 2025 2:17 PM [facility] 02-23-2025 Note HNO ID: [id number] Author: SHAUNA BELLO MD Service: ? Author Type: Physician Type: Progress Notes Filed: 02/23/2025 12:28 Note Text: Subjective Anastasia Heller is a 54 year old female. HPI Anastasia is a 54-year-old female with a history of HTN, DM, and knee arthritis, presenting for a regular 3-month check-up. Anastasia reports persistent fatigue and dyspnea on exertion, noting that she becomes short of breath after walking short distances, such as from her car to the clinic. She attributes her difficulty walking to knee arthritis, which is more severe in the left knee but also affects the right knee at night. She also reports significant swelling in her left foot, which she describes as quite a bit, while the right foot remains unaffected. She has been taking meloxicam for knee pain, particularly at night, and requests a refill. She also uses ibuprofen for headaches. Anastasia has been making dietary changes, including reducing junk food intake and practicing portion control, which has resulted in gradual weight loss. She is taking vitamin D and B12 supplements and reports adherence to these medications. She is also on atenolol for blood pressure management but has not refilled it recently. She is considering applying for disability due to her ongoing symptoms but plans to wait 6 months to a year to see if her condition improves with weight loss. PAST MEDICAL HISTORY Diagnosis Date Allergic rhinitis, cause unspecified Calculus of kidney Daytime sleepiness Endometrial hyperplasia, unspecified 05/04/06 Esophageal reflux 03/23/2005 Generalized osteoarthrosis, unspecified site Migraine without aura, without mention of intractable migraine without mention of status migrainosus 03/23/2005 Panic disorder without agoraphobia Sciatica Current Outpatient Medications Medication Sig phenazopyridine (PYRIDIUM) 200 mg tablet Take 1 tablet by mouth three times a day before meals. acyclovir (ZOVIRAX) 5 % crea Apply to affected area five times a day. Blood Pressure Monitor 1 Each two times a day as needed (for BP management). blood sugar diagnostic (BLOOD GLUCOSE TEST) test strip Test blood sugar(s) 1 times daily. Dx: Other DM Code R73.9 Insulin: No Lancets Use with blood glucose test once daily. R73.9 Hyperglycemia cyanocobalamin (VITAMIN B-12) 1,000 mcg tab Take 1 tablet by mouth once daily. rizatriptan (MAXALT-ENGINEERING DOCUMENTATION SPECIALIST) 10 mg disintegrating tablet Take 1 tablet (10 mg) by mouth as directed. May repeat in 2 hours if needed albuterol HFA (VENTOLIN HFA) 90 mcg/actuation inhaler Inhale 2 Puffs as instructed every 4 hours as needed for wheezing/shortness of breath. ibuprofen (MOTRIN) 600 mg tablet Take 1 tablet by mouth every 8 hours as needed for pain (for migraines). meloxicam (MOBIC) 7.5 mg tablet Take 1 tablet by mouth once daily as needed for pain (for knee pain). With food. Do not take on days you take the ibuprofen. spironolactone (ALDACTONE) 25 mg tablet Take 1 tablet by mouth once daily. Cholecalciferol, Vitamin D3, 125 mcg (5,000 unit) cap Take 1 capsule by mouth once daily. atenolol (TENORMIN) 50 mg tablet Take 1 tablet by mouth once daily. No current facility-administered medications for this visit. Review of Systems Objective BP 158/90 Pulse 67 Resp 16 Wt (!) 143.2 kg (315 lb 11.2 oz) SpO2 97% BMI 62.70 kg/m? Last 5 Encounter Wt Readings: Date: Wt: 02/23/2025 143.2 kg (315 lb 11.2 oz) 02/17/2025 144 kg (317 lb 7.4 oz) 11/13/2024 144.2 kg (317 lb 14.5 oz) 08/07/2024 141.7 kg (312 lb 6.3 oz) 04/12/2024 146.5 kg (322 lb 15.6 oz) No waist measurement recorded Estimated body mass index is 62.7 kg/m? as calculated from the following: Height as of 08/07/24: 151.1 cm (4' 11.5). Weight as of this encounter: 143.2 kg (315 lb 11.2 oz). Last 5 Encounter BP Readings: Date: BP: 02/23/2025 158/90 02/17/2025 170/98 11/13/2024 167/90 08/07/2024 145/90[?[ 04/12/2024 145/84[BP Calixto Average[ Physical Exam Constitutional: Appearance: Normal appearance. She is obese. HENT: Head: Normocephalic. Eyes: Conjunctiva/sclera: Conjunctivae normal. Cardiovascular: Rate and Rhythm: Normal rate and regular rhythm. Heart sounds: Normal heart sounds. Pulmonary: Effort: Pulmonary effort is normal. Breath sounds: Normal breath sounds. Musculoskeletal: Right lower le+ Pitting Edema (feet) present. Left lower le+ Pitting Edema (feet) present. Skin: General: Skin is warm and dry. Neurological: General: No focal deficit present. Mental Status: She is alert and oriented to person, place, and time. Psychiatric: Mood and Affect: Mood normal. Behavior: Behavior normal. Thought Content: Thought content normal. Judgment: Judgment normal. ASSESSMENT AND PLAN # Diabetes mellitus type 2, controlled, without complications (HCC) (E11.9) - A1c has been well controlled; two prior fasting glucose values >126 mg/dL. - Order A1c and metabol (more content not included)... [facility] 02-17-2025 Note HNO ID: [id number] Author: ILAN TRINH APRN.[facility] Service: ? Author Type: Nurse Practitioner Type: Progress Notes Filed: 02/17/2025 15:25 Note Text: [facility] Luiza Heller is a 54 year old female. Patient presents with: Urinary Problem: Pain pressure with urine, x 2 days HPI The patient is a 54-year-old female with a history of recurrent UTIs, presenting with fatigue, lightheadedness, and urinary pressure. Fatigue and Lightheadedness: - Onset over the past few days. - Describes feeling wore out and like I'm going to pass out. - Reports no energy. Urinary Pressure: - Onset yesterday. - Describes as a lot of pressure. Recurrent UTIs: - Recent UTI 1-2 months ago, initially treated with Bactrim without improvement. - Required a stronger antibiotic for resolution. - Currently using Pyridium for symptom relief; requests a refill. - Denies back pain or abdominal pain. Review of Systems Constitutional: (+) fatigue Gastrointestinal: (-) abdominal pain Musculoskeletal: (+) back pain Neurological: (+) lightheadedness, (+) near-syncope Objective BP 170/98 Pulse 74 Temp 37.3 ?C (99.1 ?F) Resp 22 Wt (!) 144 kg (317 lb 7.4 oz) SpO2 96% BMI 63.05 kg/m? Physical Exam General: No acute distress. CV: Heart sounds regular. Resp: Lungs clear to auscultation bilaterally. Back: Mild tenderness to palpation. Abd: No tenderness to palpation. { 1. Urination pain (R30.9) - Recent history of UTI treated with Bactrim without resolution; subsequently treated with Macrobid BID for 5 days for E. coli UTI. - Currently experiencing fatigue, lightheadedness, and pelvic pressure. - Lungs clear and heart sounds regular on exam; no abdominal pain or deep back pain suggestive of pyelonephritis. - Urine culture ordered; will adjust antibiotics if necessary based on results. - Prescribed Pyridium per patient request for symptomatic relief. - Patient agreeable to care plan; follow-up as needed. and Recording using Norse software for draft documentation of the visit was discussed with the patient/authorized member service representative; all questions welcomed and answered. Patient/authorized member service representative agreed to proceed History and Record Review External record(s) reviewed: prior outpatient record. Findings from review of outpatient records: urine cultures Disposition The patient was discharged. Procedures [facility] 11-15-2024 Telephone encounter Note PATIENT NOTIFIED OF SAME. [facility] 11-15-2024 Miscellaneous Notes PATIENT NOTIFIED OF SAME. Please call and let patient know that her urine culture shows bacteria resistance to Bactrim so we need to change antibiotics. She should stop the Bactrim and start Macrobid that I sent to the pharmacy today. documented in this encounter [facility] 11-15-2024 Telephone encounter Note Please call and let patient know that her urine culture shows bacteria resistance to Bactrim so we need to change antibiotics. She should stop the Bactrim and start Macrobid that I sent to the pharmacy today. [facility] 11-14-2024 Telephone encounter Note Script has been mailed to patient's home address. [facility] 11-14-2024 Miscellaneous Notes Script has been mailed to patient's home address. Please send order for air conditioner to patient or DME company. Thanks documented in this encounter [facility] 11-14-2024 Telephone encounter Note Please send order for air conditioner to patient or DME company. Thanks [facility] 11-13-2024 Note HNO ID: [id number] Author: SUNDEEP DOMÍNGUEZ APRN.CNP Service: ? Author Type: Nurse Practitioner Type: Progress Notes Filed: 11/13/2024 15:43 Note Text: SUBJECTIVE Anastasia Heller is a 54 year old female here today for a check up on her medical problems. Chief Complaint Patient presents with: F/U 3 Month Urinary Frequency: on going for about 3 days HPI Anastasia Heller is a 54 year old female. She is an established patient of Shauna Bello MD. Here today for follow up, also with concerns of a possible UTI. Symptoms started 3-4 days ago. Feeling dysuria, low abdominal pressure. Otherwise feeling okay, notes she wants to work on weight loss. Compliant with her medications. Blood pressure is elevated today. Feels like she has generalized swelling. Her medications were reviewed today and her list is now up to date. Medications Current Outpatient Medications Medication Sig acyclovir (ZOVIRAX) 5 % crea Apply to affected area five times a day. cyanocobalamin (VITAMIN B-12) 1,000 mcg tab Take 1 tablet by mouth once daily. atenolol (TENORMIN) 50 mg tablet Take 1 tablet by mouth once daily. Cholecalciferol, Vitamin D3, 125 mcg (5,000 unit) cap Take 1 capsule by mouth once daily. rizatriptan (MAXALT-ENGINEERING DOCUMENTATION SPECIALIST) 10 mg disintegrating tablet Take 1 tablet (10 mg) by mouth as directed. May repeat in 2 hours if needed albuterol HFA (VENTOLIN HFA) 90 mcg/actuation inhaler Inhale 2 Puffs as instructed every 4 hours as needed for wheezing/shortness of breath. ibuprofen (MOTRIN) 600 mg tablet Take 1 tablet by mouth every 8 hours as needed for pain (for migraines). meloxicam (MOBIC) 7.5 mg tablet Take 1 tablet by mouth once daily as needed for pain (for knee pain). With food. Do not take on days you take the ibuprofen. sulfamethoxazole-trimethoprim (BACTRIM DS) 800-160 mg per tablet Take 1 tablet by mouth two times a day for 7 days. phenazopyridine (PYRIDIUM) 200 mg tablet Take 1 tablet by mouth three times a day before meals. spironolactone (ALDACTONE) 25 mg tablet Take 1 tablet by mouth once daily. Blood Pressure Monitor 1 Each two times a day as needed (for BP management). blood sugar diagnostic (BLOOD GLUCOSE TEST) test strip Test blood sugar(s) 1 times daily. Dx: Other DM Code R73.9 Insulin: No Lancets Use with blood glucose test once daily. R73.9 Hyperglycemia No current facility-administered medications for this visit. ALLERGIES Allergen Reactions Reglan [Metoclopram* [place] like coming out of her skin; felt like was was more nauseated the next day Zoloft [Sertraline * Intolerance, Diarrhea Forgetfullness; did not help with somnolence ACTIVE PROBLEM LIST Primary Hypertension - 08/11/2022 Calculus of Ureter - 08/04/2016 Gastroesophageal Reflux Disease - 08/04/2016 Bmi 60.0-69.9, Adult ([facility]) - 08/04/2016 Chronic Bronchitis ([facility]) - 08/04/2016 Kidney Stones - 07/24/2016 Excessive Daytime Sleepiness Panic Disorder Without Agoraphobia - 08/05/2006 Migraine Without Aura - 03/23/2005 Esophageal Reflux - 03/23/2005 Osteoarthritis of Multiple Joints - 03/11/2005 Sciatica - 03/11/2005 Social History Tobacco Use Smoking status: Never Smokeless tobacco: Never Vaping Use Vaping status: Never Used Substance Use Topics Alcohol use: No Drug use: Never Review of Systems Respiratory: Negative. Cardiovascular: Positive for leg swelling. Negative for chest pain and palpitations. Genitourinary: Positive for dysuria. OBJECTIVE BP 167/90 Pulse 75 Wt 317 lb 14.5 oz (144.2kg) SpO2 97% Physical Exam Vitals and nursing note reviewed. Constitutional: General: She is awake. She is not in acute distress. Appearance: Normal appearance. She is well-developed and well-groomed. She is not ill-appearing, toxic-appearing or diaphoretic. HENT: Head: Normocephalic. Right Ear: External ear normal. Left Ear: External ear normal. Nose: Nose normal. Eyes: General: Vision grossly intact. Conjunctiva/sclera: Conjunctivae normal. Pupils: Pupils are equal, round, and reactive to light. Neck: Vascular: No JVD. Trachea: Trachea normal. Cardiovascular: Rate and Rhythm: Normal rate and regular rhythm. Pulses: Normal pulses. Heart sounds: Normal heart sounds. No murmur heard. Pulmonary: Effort: Pulmonary effort is normal. No accessory muscle usage, prolonged expiration or respiratory distress. Breath sounds: Normal breath sounds. Musculoskeletal: Cervical back: Neck supple. Right lower leg: Edema present. Left lower leg: Edema present. Skin: General: Skin is warm and dry. Capillary Refill: Capillary refill takes less than 2 seconds. Neurological: General: No focal deficit present. Mental Status: She is alert and oriented to person, place, and time. Mental status is at baseline. Psychiatric: Attention and Perception: Attention and perception normal. Mood and Affect: Mood and affect normal. Speech: Speech normal. Behavior: Behavior nor (more content not included)... [facility] 11-13-2024 History of Presen t illness Narrative SUBJECTIVE Anastasia Heller is a 54 year old female here today for a check up on her medical problems. Chief Complaint Patient presents with: F/U 3 Month Urinary Frequency: on going for about 3 days HPI Anastasia Heller is a 54 year old female. She is an established patient of Shauna Bello MD. Here today for follow up, also with concerns of a possible UTI. Symptoms started 3-4 days ago. Feeling dysuria, low abdominal pressure. Otherwise feeling okay, notes she wants to work on weight loss. Compliant with her medications. Blood pressure is elevated today. Feels like she has generalized swelling. Her medications were reviewed today and her list is now up to date. Medications Current Outpatient Medications Medication Sig acyclovir (ZOVIRAX) 5 % crea Apply to affected area five times a day. cyanocobalamin (VITAMIN B-12) 1,000 mcg tab Take 1 tablet by mouth once daily. atenolol (TENORMIN) 50 mg tablet Take 1 tablet by mouth once daily. Cholecalciferol, Vitamin D3, 125 mcg (5,000 unit) cap Take 1 capsule by mouth once daily. rizatriptan (MAXALT-ENGINEERING DOCUMENTATION SPECIALIST) 10 mg disintegrating tablet Take 1 tablet (10 mg) by mouth as directed. May repeat in 2 hours if needed albuterol HFA (VENTOLIN HFA) 90 mcg/actuation inhaler Inhale 2 Puffs as instructed every 4 hours as needed for wheezing/shortness of breath. ibuprofen (MOTRIN) 600 mg tablet Take 1 tablet by mouth every 8 hours as needed for pain (for migraines). meloxicam (MOBIC) 7.5 mg tablet Take 1 tablet by mouth once daily as needed for pain (for knee pain). With food. Do not take on days you take the ibuprofen. sulfamethoxazole-trimethoprim (BACTRIM DS) 800-160 mg per tablet Take 1 tablet by mouth two times a day for 7 days. phenazopyridine (PYRIDIUM) 200 mg tablet Take 1 tablet by mouth three times a day before meals. spironolactone (ALDACTONE) 25 mg tablet Take 1 tablet by mouth once daily. Blood Pressure Monitor 1 Each two times a day as needed (for BP management). blood sugar diagnostic (BLOOD GLUCOSE TEST) test strip Test blood sugar(s) 1 times daily. Dx: Other DM Code R73.9 Insulin: No Lancets Use with blood glucose test once daily. R73.9 Hyperglycemia No current facility-administered medications for this visit. ALLERGIES Allergen Reactions Reglan [Metoclopram* [place] like coming out of her skin; felt like was was more nauseated the next day Zoloft [Sertraline * Intolerance, Diarrhea Forgetfullness; did not help with somnolence ACTIVE PROBLEM LIST Primary Hypertension - 08/11/2022 Calculus of Ureter - 08/04/2016 Gastroesophageal Reflux Disease - 08/04/2016 Bmi 60.0-69.9, Adult ([facility]) - 08/04/2016 Chronic Bronchitis ([facility]) - 08/04/2016 Kidney Stones - 07/24/2016 Excessive Daytime Sleepiness Panic Disorder Without Agoraphobia - 08/05/2006 Migraine Without Aura - 03/23/2005 Esophageal Reflux - 03/23/2005 Osteoarthritis of Multiple Joints - 03/11/2005 Sciatica - 03/11/2005 Social History Tobacco Use Smoking status: Never Smokeless tobacco: Never Vaping Use Vaping status: Never Used Substance Use Topics Alcohol use: No Drug use: Never Review of Systems Respiratory: Negative. Cardiovascular: Positive for leg swelling. Negative for chest pain and palpitations. Genitourinary: Positive for dysuria. OBJECTIVE BP 167/90 Pulse 75 Wt 317 lb 14.5 oz (144.2kg) SpO2 97% Physical Exam Vitals and nursing note reviewed. Constitutional: General: She is awake. She is not in acute distress. Appearance: Normal appearance. She is well-developed and well-groomed. She is not ill-appearing, toxic-appearing or diaphoretic. HENT: Head: Normocephalic. Right Ear: External ear normal. Left Ear: External ear normal. Nose: Nose normal. Eyes: General: Vision grossly intact. Conjunctiva/sclera: Conjunctivae normal. Pupils: Pupils are equal, round, and reactive to light. Neck: Vascular: No JVD. Trachea: Trachea normal. Cardiovascular: Rate and Rhythm: Normal rate and regular rhythm. Pulses: Normal pulses. Heart sounds: Normal heart sounds. No murmur heard. Pulmonary: Effort: Pulmonary effort is normal. No accessory muscle usage, prolonged expiration or respiratory distress. Breath sounds: Normal breath sounds. Musculoskeletal: Cervical back: Neck supple. Right lower leg: Edema present. Left lower leg: Edema present. Skin: General: Skin is warm and dry. Capillary Refill: Capillary refill takes less than 2 seconds. Neurological: General: No focal deficit present. Mental Status: She is alert and oriented to person, place, and time. Mental status is at baseline. Psychiatric: Attention and Perception: Attention and perception normal. Mood and Affect: Mood and affect normal. Speech: Speech normal. Behavior: Behavior normal. Behavior is cooperative. Thought Content: Thought content normal. Cognition and Memory: Cognition and memory normal. Judgment: Judgment normal. ASSESSMENT/PLAN: 1. Acute UTI - ICD9: 599.0, ICD10: N39.0 (primary diagnosis) acute - UA positive for julia esterase and hematuria - Send urine for culture - Begin treatment with Bactrim DS BID for 7 days - Patient education for prevention given - UA DIP B/O - SULFAMETHOXAZOLE 800 MG-TRIMETHOPRIM 160 MG TABLET - PHENAZOPYRIDINE 200 MG TABLET - BACTERIAL CULTURE, URINE 2. Dysuria - ICD9: 788.1, ICD10: R30.0 - UA DIP B/O 3. Urinary frequency - ICD9: 788.41, ICD10: R35.0 - UA DIP B/O 4. Primary hypertension - ICD9: 401.9, ICD10: I10 - Uncontrolled - Start spironolactone - Recommend home blood pressure monitoring, to bring results to next visit - Encouraged sodium restriction, DASH or Mediterranean diet - Recommend regular aerobic exercise - SPIRONOLACTONE 25 MG TABLET 5. Generalized edema - ICD9: 782.3, ICD10: R60.1 Start low dose of spironolactone 6. Class 3 severe obesity due to excess calories with body mass index (BMI) of 60.0 to 69.9 in adult, unspecified whether serious comorbidity present (HCC) - ICD9: 278.01, V85.44, ICD10: E66.813, Z68.44 - Behavioral intervention Portions of this note have been entered by ancillary staff. I have reviewed and when necessary edited, so that they are an adequate record of my encounter with this patient Please note that parts of this document were created using voice recognition software and therefore may contain grammatical errors. Patient verbalizes understanding of instructions from today's visit and in agreement with treatment plan. Questions answered. Agrees to call the office if questions, concerns of issues with acute symptoms not improving or if they worsen. See diagnoses and orders for additional plan(s). Allergies and medications were reviewed, list was updated, and refills given if needed. Past medical, surgical, social, and family history reviewed and updated as appropriate. Encouraged proper diet & exercise as well as compliance with taking medications. Age-appropriate health preventative measures were discussed. Return in about 4 weeks (around 12/11/2024) for recheck bp. Sundeep Domínguez APRN-MICHELLE documented in this encounter [facility] 11-13-2024 Instructions Maryjo Hawk LPN - 11/13/2024 1:56 PM EDT Images from the original note were not included. Urinary Problem-When to Seek Help? Symptoms of a urinary problem may lead to a bladder infection. Women are at greater risk of a urinary tract infection than are men. Most urinary tract infections in women are caused by bacteria and involve the lower urinary tract including the bladder and urethra. Symptoms: Pain or burning when passing urine, urgency, frequency, blood in the urine, difficult emptying your bladder, and lower abdominal fullness or pressure. Common Causes: Sexual intercourse, menopause, constipation, uncontrolled diabetes, dehydration and feminine products such as tampons, and kidney stones. When to Get Help: Seek medical attention if you get frequent bladder infections, urinary concerns such as leakage, blood in the urine or frequent need to urinate. You may be recommended to get help from a specialist, such as a urologist. Diagnosis & Treatment: Lab testing may include: urinalysis, and urine culture that can be collected in the lab or walk-in clinic. Most bladder infections can easily be treated. A physician, nurse practitioner or physician educational assistant may treat with a short course of an antibiotic. Delaying treatment can lead to worsening symptoms, like a kidney infection. Self-Care: Avoid a full bladder, bubble baths, bath oils, food and beverages that may irritate the bladder such as caffeine. Avoid spermicide foam and diaphragms Void before and after sexual intercourse Wipe front to back after using the bathroom. Stay hydrated Stop Smoking Follow-up Care: Follow up testing is not needed in healthy young women if symptoms resolve. documented in this encounter [facility] 10-20-2024 Telephone encounter Note Patient returns call and provider message reviewed with verbalized understanding. Varghese Aleman RN [facility] 10-20-2024 Miscellaneous Notes Patient returns call and provider message reviewed with verbalized understanding. Varghese Aleman RN We can certainly go over these in more detail with her upcoming appointment. Labs show low vitamin D, sugars is elevated but lower than prior labs, cholesterol is improving. Patient calling back, aware PCP is out of the office until 10/30. Requesting note to go to Sundeep Domínguez [employer] to review please. Patient calls and states that she had labs done yesterday. Patient is asking about the results to the labs. Latest Ref Rng 10/17/2024 Cholesterol, Total <200 mg/dL 230 (H) Triglyceride <150 mg/dL 197 (H) HDL Cholesterol >39 mg/dL 41 LDL Cholesterol, Calculated <100 mg/dL 153 (H) Non HDL Cholesterol <130 mg/dL 189 (H) VLDL Cholesterol <30 mg/dL 37 (H) TC:HDL Ratio <5.10 5.61 (H) LDL:HDL Ratio <2.54 3.73 (H) Fasting Time hrs 12 Latest Ref Rng 10/17/2024 Protein, Total 6.3 - 8.0 g/dL 7.6 Albumin 3.9 - 4.9 g/dL 3.9 Calcium 8.5 - 10.2 mg/dL 9.5 Bilirubin, Total 0.2 - 1.3 mg/dL 0.5 Alkaline Phosphatase 34 - 123 U/L 94 AST 13 - 35 U/L 35 ALT 7 - 38 U/L 32 Glucose 74 - 99 mg/dL 141 (H) BUN 7 - 21 mg/dL 11 Creatinine 0.58 - 0.96 mg/dL 0.64 Sodium 136 - 144 mmol/L 141 Potassium 3.7 - 5.1 mmol/L 4.2 Chloride 98 - 107 mmol/L 104 CO2 22 - 30 mmol/L 25 Anion Gap 8 - 15 mmol/L 12 eGFR >=60 mL/min/1.73m 104 Latest Ref Rng 10/17/2024 Hemoglobin A1C 4.3 - 5.6 % 6.0 (H) Estimated Average Glucose mg/dL 126 Latest Ref Rng 10/17/2024 Vitamin D 25 Hydroxy 31.0 - 80.0 ng/mL 14.4 (L) Please review and advise, Jenni Holcomb RN documented in this encounter [facility] 10-20-2024 Telephone encounter Note We can certainly go over these in more detail with her upcoming appointment. Labs show low vitamin D, sugars is elevated but lower than prior labs, cholesterol is improving. [facility] 10-19-2024 Telephone encounter Note Patient calling back, aware PCP is out of the office until 10/30. Requesting note to go to Sundeep Domínguez [employer] to review please. [facility] 10-18-2024 Telephone encounter Note Patient calls and states that she had labs done yesterday. Patient is asking about the results to the labs. Latest Ref Rng 10/17/2024 Cholesterol, Total <200 mg/dL 230 (H) Triglyceride <150 mg/dL 197 (H) HDL Cholesterol >39 mg/dL 41 LDL Cholesterol, Calculated <100 mg/dL 153 (H) Non HDL Cholesterol <130 mg/dL 189 (H) VLDL Cholesterol <30 mg/dL 37 (H) TC:HDL Ratio <5.10 5.61 (H) LDL:HDL Ratio <2.54 3.73 (H) Fasting Time hrs 12 Latest Ref Rng 10/17/2024 Protein, Total 6.3 - 8.0 g/dL 7.6 Albumin 3.9 - 4.9 g/dL 3.9 Calcium 8.5 - 10.2 mg/dL 9.5 Bilirubin, Total 0.2 - 1.3 mg/dL 0.5 Alkaline Phosphatase 34 - 123 U/L 94 AST 13 - 35 U/L 35 ALT 7 - 38 U/L 32 Glucose 74 - 99 mg/dL 141 (H) BUN 7 - 21 mg/dL 11 Creatinine 0.58 - 0.96 mg/dL 0.64 Sodium 136 - 144 mmol/L 141 Potassium 3.7 - 5.1 mmol/L 4.2 Chloride 98 - 107 mmol/L 104 CO2 22 - 30 mmol/L 25 Anion Gap 8 - 15 mmol/L 12 eGFR >=60 mL/min/1.73m 104 Latest Ref Rng 10/17/2024 Hemoglobin A1C 4.3 - 5.6 % 6.0 (H) Estimated Average Glucose mg/dL 126 Latest Ref Rng 10/17/2024 Vitamin D 25 Hydroxy 31.0 - 80.0 ng/mL 14.4 (L) Please review and advise, Jenni Holcomb RN [facility] 09-02-2024 Miscellaneous Notes Patient contacted pharmacy and requests refills as follows: Requested Prescriptions Pending Prescriptions Disp Refills acyclovir (ZOVIRAX) 5 % crea 5 g 0 Sig: Apply to affected area five times a day. acyclovir (ZOVIRAX) 400 mg tablet 21 tablet 0 Sig: Take 1 tablet by mouth three times a day for 7 days. The last encounter with Shauna Bello MD was 08/07/2024 RX INSTRUCTIONS: Patient aware RX will be sent to pharmacy. No need to notify patient. Patient has been identified by name and date of : Yes Naomy Franco documented in this encounter [facility] 09-02-2024 Telephone encounter Note Patient contacted pharmacy and requests refills as follows: Requested Prescriptions Pending Prescriptions Disp Refills acyclovir (ZOVIRAX) 5 % crea 5 g 0 Sig: Apply to affected area five times a day. acyclovir (ZOVIRAX) 400 mg tablet 21 tablet 0 Sig: Take 1 tablet by mouth three times a day for 7 days. The last encounter with Shauna Bello MD was 08/07/2024 RX INSTRUCTIONS: Patient aware RX will be sent to pharmacy. No need to notify patient. Patient has been identified by name and date of : Yes Naomy Franco [facility] 08-07-2024 Instructions Shauna Bello MD - 08/07/2024 2:21 PM EDT - Increase Atenolol dosage to 50 mg daily for blood pressure management; prescription sent to pharmacy. - Take Vitamin D 5000 IU daily as previously prescribed. - Refill Vitamin B12 prescription at [facility]. - Refill Acyclovir cream and tablets for cold sores at [facility]. - Refill Ativan 0.5 mg for anxiety attacks as needed; prescription sent to pharmacy. - Obtain a blood pressure monitor and glucose monitor; prescriptions sent to [facility]. - Monitor blood pressure twice daily and record readings. - Monitor blood sugar levels daily and record readings. - Maintain current dietary habits focusing on portion control, hydration, and balanced nutrition. - Schedule and complete fasting lab tests for cholesterol, A1c, and Vitamin D levels. - Next follow-up appointment in 3-6 months. Your provider has asked you to monitor your blood pressure at home and report back to us with your readings in 1-2 weeks. This is important to ensure we keep your blood pressure in control and keep you healthy. How should I check my blood pressure? Check your blood pressure 1-2 times a day In the morning prior to taking any medications In the evening 2. Sit calmly for 5 minutes, with both feet on the ground, in a relaxing environment 3. Check your blood pressure twice each time, about 1 minute apart 4. Write down the best blood pressure with heart rate, the date and time taken. How can I report my blood pressure readings to my care team? Your provider may enroll you in [employer] Home BP Monitoring. Use the Track My Health section of [employer] to log your readings. Alternatively, you can call our office or send a [employer] Message. Report the readings with the BP, Heart Rate, Date and Time of your readings. Example: 05/24/24 @ 8 AM - 130/80 - HR 80 How can I prepare for future office visits? Check your blood pressure 1-2 times per week. If your blood pressure is consistently over 135/85, please check it daily and bring your readings to your upcoming appointment Bring your blood pressure cuff with you to an appointment once a year. This allows us to check its accuracy. See your Primary Care Team for High Blood Pressure at least 1-2 times per year What type of blood pressure cuff should I use? An electronic blood pressure monitor with an arm cuff is best. Please avoid wrist or finger blood pressure monitors. Visit [email or web address] or talk to your pharmacist to find an affordable cuff that is the correct size. documented in this encounter [facility] 08-07-2024 Note HNO ID: [id number] Author: SHAUNA BELLO MD Service: ? Author Type: Physician Type: Progress Notes Filed: 02/23/2025 09:21 Note Text: This note was created using Delta IDriter. Subjective Anastasia Heller is a 54 year old female. Patient presents with: Follow Up SUBJECTIVE: Anastasia Heller is a 54 year old year old lady here today for 3 to 6month follow up appointment for review of medical conditions. Anastasia is a 54-year-old female with a history of HTN, elevated hemoglobin A1c, and hyperlipidemia, presenting for a follow-up visit. Anastasia was last seen in March and has since been focusing on weight loss through portion control and increased water intake. She reports a decrease in weight since her last visit. She is currently taking vitamin D 5,000 IU daily and vitamin B, and requests refills for both. She is also taking atenolol 25 mg daily for blood pressure management and requests a prescription for a blood pressure cuff and glucose monitor for home use. She denies a current diagnosis of diabetes. She reports occasional shakiness in the mornings, which she does not attribute to elevated blood sugar levels. She also experiences dyspnea with walking short distances and has applied for disability due to this and arthritis in her left knee. She notes swelling in her left foot, particularly at night and after increased activity, which has been ongoing for a couple of years. She denies similar swelling in her right foot. 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 She also requests a refill for Ativan, which she uses as needed for anxiety attacks, particularly when alone at home. She has recently started seeing a therapist to address these issues. PAST MEDICAL HISTORY Diagnosis Date Allergic rhinitis, cause unspecified Calculus of kidney Daytime sleepiness Endometrial hyperplasia, unspecified 05/04/06 Esophageal reflux 03/23/2005 Generalized osteoarthrosis, unspecified site Migraine without aura, without mention of intractable migraine without mention of status migrainosus 03/23/2005 Panic disorder without agoraphobia Sciatica Current Outpatient Medications Medication Sig acyclovir (ZOVIRAX) 5 % crea Apply to affected area five times a day. cyanocobalamin (VITAMIN B-12) 1,000 mcg tab Take 1 tablet by mouth once daily. Cholecalciferol, Vitamin D3, 125 mcg (5,000 unit) cap Take 1 capsule by mouth once daily. rizatriptan (MAXALT-ENGINEERING DOCUMENTATION SPECIALIST) 10 mg disintegrating tablet Take 1 tablet (10 mg) by mouth as directed. May repeat in 2 hours if needed albuterol HFA (VENTOLIN HFA) 90 mcg/actuation inhaler Inhale 2 Puffs as instructed every 4 hours as needed for wheezing/shortness of breath. atenolol (TENORMIN) 25 mg tablet Take 1 tablet by mouth once daily. ibuprofen (MOTRIN) 600 mg tablet Take 1 tablet by mouth every 8 hours as needed for pain (for migraines). meloxicam (MOBIC) 7.5 mg tablet Take 1 tablet by mouth once daily as needed for pain (for knee pain). With food. Do not take on days you take the ibuprofen. No current facility-administered medications for this visit. Review of Systems Objective BP 172/82 Pulse 72 Ht 151.1 cm (4' 11.5) Wt (!) 141.7 kg (312 lb 6.3 oz) BMI 62.04 kg/m? Last 5 Encounter Wt Readings: Date: Wt: 08/07/2024 141.7 kg (312 lb 6.3 oz) 04/12/2024 146.5 kg (322 lb 15.6 oz) 07/26/2023 147 kg (324 lb) 08/11/2022 141.5 kg (312 lb) 05/03/2022 143.3 kg (316 lb) No waist measurement recorded Estimated body mass index is 62.04 kg/m? as calculated from the following: Height as of this encounter: 151.1 cm (4' 11.5). Weight as of this encounter: 141.7 kg (312 lb 6.3 oz). Last 5 Encounter BP Readings: Date: BP: 08/07/2024 172/82 04/12/2024 145/84[BP Calixto Average[ 07/26/2023 136/84 08/11/2022 160/98 05/03/2022 146/88 Physical Exam Constitutional: Appearance: Normal appearance. She is obese. HENT: Head: Normocephalic. Eyes: Conjunctiva/sclera: Conjunctivae normal. Cardiovascular: Rate and Rhythm: Normal rate and regular rhythm. Heart sounds: Normal heart sounds. Pulmonary: Effort: Pulmonary effort is normal. Breath sounds: Normal breath sounds. Musculoskeletal: Right lower leg: No edema. Left lower leg: No edema. Skin: General: Skin is warm and dry. Neurological: General: No focal deficit present. Mental Status: She is alert and oriented to person, place, and time. Psychiatric: Attention and Perception: Attention and perception normal. Mood and Affect: Mood and affect normal. Speech: Speech normal. Behavior: Behavior normal. Thought Content: Thought content normal. Judgment: Judgment normal. March labs reviewed. Assessment and Plan (I10) Primary hypertension (primary encounter diagnosis) (F41.0) Panic disorder without agoraphobia (R73.9) Hyperglycemia (E55.9) Vitamin D deficiency (B00.1) Cold sore (R73.09) Christina (more content not included)... [facility] 08-07-2024 History of Presen t illness Narrative This note was created using VoteItter. Subjective Anastasia Heller is a 54 year old female. Patient presents with: Follow Up SUBJECTIVE: Anastasia Heller is a 54 year old year old lady here today for 3 to 6month follow up appointment for review of medical conditions. Anastasia is a 54-year-old female with a history of HTN, elevated hemoglobin A1c, and hyperlipidemia, presenting for a follow-up visit. Anastasia was last seen in March and has since been focusing on weight loss through portion control and increased water intake. She reports a decrease in weight since her last visit. She is currently taking vitamin D 5,000 IU daily and vitamin B, and requests refills for both. She is also taking atenolol 25 mg daily for blood pressure management and requests a prescription for a blood pressure cuff and glucose monitor for home use. She denies a current diagnosis of diabetes. She reports occasional shakiness in the mornings, which she does not attribute to elevated blood sugar levels. She also experiences dyspnea with walking short distances and has applied for disability due to this and arthritis in her left knee. She notes swelling in her left foot, particularly at night and after increased activity, which has been ongoing for a couple of years. She denies similar swelling in her right foot. 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 She also requests a refill for Ativan, which she uses as needed for anxiety attacks, particularly when alone at home. She has recently started seeing a therapist to address these issues. PAST MEDICAL HISTORY Diagnosis Date Allergic rhinitis, cause unspecified Calculus of kidney Daytime sleepiness Endometrial hyperplasia, unspecified 05/04/06 Esophageal reflux 03/23/2005 Generalized osteoarthrosis, unspecified site Migraine without aura, without mention of intractable migraine without mention of status migrainosus 03/23/2005 Panic disorder without agoraphobia Sciatica Current Outpatient Medications Medication Sig acyclovir (ZOVIRAX) 5 % crea Apply to affected area five times a day. cyanocobalamin (VITAMIN B-12) 1,000 mcg tab Take 1 tablet by mouth once daily. Cholecalciferol, Vitamin D3, 125 mcg (5,000 unit) cap Take 1 capsule by mouth once daily. rizatriptan (MAXALT-ENGINEERING DOCUMENTATION SPECIALIST) 10 mg disintegrating tablet Take 1 tablet (10 mg) by mouth as directed. May repeat in 2 hours if needed albuterol HFA (VENTOLIN HFA) 90 mcg/actuation inhaler Inhale 2 Puffs as instructed every 4 hours as needed for wheezing/shortness of breath. atenolol (TENORMIN) 25 mg tablet Take 1 tablet by mouth once daily. ibuprofen (MOTRIN) 600 mg tablet Take 1 tablet by mouth every 8 hours as needed for pain (for migraines). meloxicam (MOBIC) 7.5 mg tablet Take 1 tablet by mouth once daily as needed for pain (for knee pain). With food. Do not take on days you take the ibuprofen. No current facility-administered medications for this visit. Review of Systems Objective BP 172/82 Pulse 72 Ht 151.1 cm (4' 11.5) Wt (!) 141.7 kg (312 lb 6.3 oz) BMI 62.04 kg/m Last 5 Encounter Wt Readings: Date: Wt: 08/07/2024 141.7 kg (312 lb 6.3 oz) 04/12/2024 146.5 kg (322 lb 15.6 oz) 07/26/2023 147 kg (324 lb) 08/11/2022 141.5 kg (312 lb) 05/03/2022 143.3 kg (316 lb) No waist measurement recorded Estimated body mass index is 62.04 kg/m as calculated from the following: Height as of this encounter: 151.1 cm (4' 11.5). Weight as of this encounter: 141.7 kg (312 lb 6.3 oz). Last 5 Encounter BP Readings: Date: BP: 08/07/2024 172/82 04/12/2024 145/84[BP Calixto Average[ 07/26/2023 136/84 08/11/2022 160/98 05/03/2022 146/88 Physical Exam Constitutional: Appearance: Normal appearance. She is obese. HENT: Head: Normocephalic. Eyes: Conjunctiva/sclera: Conjunctivae normal. Cardiovascular: Rate and Rhythm: Normal rate and regular rhythm. Heart sounds: Normal heart sounds. Pulmonary: Effort: Pulmonary effort is normal. Breath sounds: Normal breath sounds. Musculoskeletal: Right lower leg: No edema. Left lower leg: No edema. Skin: General: Skin is warm and dry. Neurological: General: No focal deficit present. Mental Status: She is alert and oriented to person, place, and time. Psychiatric: Attention and Perception: Attention and perception normal. Mood and Affect: Mood and affect normal. Speech: Speech normal. Behavior: Behavior normal. Thought Content: Thought content normal. Judgment: Judgment normal. March labs reviewed. Assessment and Plan .aisap documented in this encounter [facility] 07-04-2024 Note Patient Outreach (IN [facility]) ANASTASIA HELLER ([id number]) 1970 F Date Time Provider Department 07/04/24 SAHUNA BELLO IN[facility] During your visit today, we recorded the following information about you: Allergies As of Date: 07/04/2024 Noted Allergy Reaction REGLAN (METOCLOPRAMIDE HCL) 09/22/2009 Comments: [place]houn like coming out of her skin; felt like was was more nauseated the next day ZOLOFT (SERTRALINE HCL) 08/11/2007 5 - Intolerance 6 - Diarrhea Comments: Forgetfullness; did not help with somnolence Date Reviewed: 04/12/2024 Reviewed by: Sundeep Domínguez APRN.[employer] - Fully Assessed Visit Diagnosis:Encounter for screening mammogram for breast cancer [Z12.31] Order(s):PATRICIA SCREENING W JERICHO [[id number]] Order #: [id number] FUTURE Prescriptions as of 08/04/2024 - acyclovir (ZOVIRAX) 5 % crea Apply to affected area five times a day. - cyanocobalamin (VITAMIN B-12) 1,000 mcg tab Take 1 tablet by mouth once daily. - Cholecalciferol, Vitamin D3, 125 mcg (5,000 unit) cap Take 1 capsule by mouth once daily. - rizatriptan (MAXALT-ENGINEERING DOCUMENTATION SPECIALIST) 10 mg disintegrating tablet Take 1 tablet (10 mg) by mouth as directed. May repeat in 2 hours if needed - albuterol HFA (VENTOLIN HFA) 90 mcg/actuation inhaler Inhale 2 Puffs as instructed every 4 hours as needed for wheezing/shortness of breath. - atenolol (TENORMIN) 25 mg tablet Take 1 tablet by mouth once daily. - ibuprofen (MOTRIN) 600 mg tablet Take 1 tablet by mouth every 8 hours as needed for pain (for migraines). - meloxicam (MOBIC) 7.5 mg tablet Take 1 tablet by mouth once daily as needed for pain (for knee pain). With food. Do not take on days you take the ibuprofen. Problem List As Of Date 07/04/2024 Noted Resolved Osteoarthritis of multiple joints [M15.9] 03/11/2005 SCIATICA [M54.30] 03/11/2005 Migraine without aura [G43.009] 03/23/2005 ESOPHAGEAL REFLUX [K21.9] 03/23/2005 PANIC DISORDER WITHOUT AGORAPHOBIA [F41.0] 08/05/2006 Allergic rhinitis [J30.9] 08/11/2022 Excessive daytime sleepiness [G47.19] Neck pain [M54.2] 08/11/2022 Kidney stones [N20.0] 07/24/2016 Calculus of ureter [N20.1] 08/04/2016 Gastroesophageal reflux disease [K21.9] 08/04/2016 BMI 60.0-69.9, adult (HCC) [Z68.44] 08/04/2016 Chronic bronchitis (HCC) [J42] 08/04/2016 Primary hypertension [I10] 08/11/2022 Encounter Status:Closed by HELIO RAMON on 08/04/24 [facility] 05-11-2024 Telephone encounter Note Follow up if not improving The following approved medication requests have been transmitted electronically. Requested Prescriptions Signed Prescriptions Disp Refills acyclovir (ZOVIRAX) 5 % crea 5 g 0 Sig: Apply to affected area five times a day. Authorizing Provider: SHAUNA BELLO MD [facility] 05-11-2024 Miscellaneous Notes Follow up if not improving The following approved medication requests have been transmitted electronically. Requested Prescriptions Signed Prescriptions Disp Refills acyclovir (ZOVIRAX) 5 % crea 5 g 0 Sig: Apply to affected area five times a day. Authorizing Provider: SHAUNA BELLO MD Pt reports she has had a cold sore on upper lip for 2 days, getting big and painful. Asking if pcp can send Rx for zovirax cream to her pharmacy. Advised pt would need appt in order to get an Rx. Pt states provider always sends Rx to pharmacy without an appt. Please advise patient. documented in this encounter [facility] 05-10-2024 Telephone encounter Note Pt reports she has had a cold sore on upper lip for 2 days, getting big and painful. Asking if pcp can send Rx for zovirax cream to her pharmacy. Advised pt would need appt in order to get an Rx. Pt states provider always sends Rx to pharmacy without an appt. Please advise patient. [facility] 04-29-2024 Telephone encounter Note Patient notified of results and provider's instructions. Patient verbalizes understanding. Katie Nicole LPN [facility] 04-29-2024 Miscellaneous Notes Patient notified of results and provider's instructions. Patient verbalizes understanding. Katie Nicole LPN Echocardiogram showed good heart function and no significant valve problems. Left Ventricle ejection fraction good at 59%. No problem noted. Patient calls to ask if provider has got a chance to look at results of ECHO from 04/25/2024. Notified pending review of provider. Patient requests a call back at [phone] once provider reviews. Varghese Aleman RN documented in this encounter [facility] 04-28-2024 Telephone encounter Note Echocardiogram showed good heart function and no significant valve problems. Left Ventricle ejection fraction good at 59%. No problem noted. [facility] 04-28-2024 Telephone encounter Note Patient calls to ask if provider has got a chance to look at results of ECHO from 04/25/2024. Notified pending review of provider. Patient requests a call back at [phone] once provider reviews. Varghese Aleman RN [facility] 04-17-2024 Telephone encounter Note Sent. [facility] 04-17-2024 Miscellaneous Notes Sent. Patient calls and notified of lab results and provider recommendations. Blood counts are stable. Vitamin d is low, I am sending in a vitamin d supplement to start taking daily. Cholesterol is elevated and blood sugars are elevated in the prediabetes range, liver numbers are slightly up too. We discussed that you are motivated to work on a healthy lifestyle and slowly increasing physical activity will help these numbers. B12 is at the lower end of normal, we could look at adding a b12 supplement if interested. Patient will to take vitamin b12. Patient asking if prescription can be sent to pharmacy. documented in this encounter [facility] 04-17-2024 Telephone encounter Note Patient calls and notified of lab results and provider recommendations. Blood counts are stable. Vitamin d is low, I am sending in a vitamin d supplement to start taking daily. Cholesterol is elevated and blood sugars are elevated in the prediabetes range, liver numbers are slightly up too. We discussed that you are motivated to work on a healthy lifestyle and slowly increasing physical activity will help these numbers. B12 is at the lower end of normal, we could look at adding a b12 supplement if interested. Patient will to take vitamin b12. Patient asking if prescription can be sent to pharmacy. [facility] 04-12-2024 Note HNO ID: [id number] Author: SUNDEEP DOMÍNGUEZ APRN.[facility] Service: ? Author Type: Nurse Practitioner Type: Progress Notes Filed: 04/12/2024 14:51 Note Text: SUBJECTIVE Anastasia Heller is a 53 year old female here today for a check up on her medical problems. Chief Complaint Patient presents with: Letter Shortness of Breath Headache: states are coming back HPI Anastasia Heller is a 53 year old female. She is an established patient of Shauna Bello MD. She was last seen in the office 07/2022. Here today for follow up. Notes some concerns of shortness of breath but attributes this to weight, sitting and rest alleviates this. Having more headaches. Will get aura and tries to take NSAIDs before triptan. Not taking her blood pressure medication. Admits that she needs to work on weight loss, motivated to do this. Needs an updated letter with excuse from wearing a seat belt, Shauna Bello MD has done this in the past. Would like to update labs. Her medications were reviewed today and her list is now up to date. Medications Current Outpatient Medications Medication Sig rizatriptan (MAXALT-ENGINEERING DOCUMENTATION SPECIALIST) 10 mg disintegrating tablet Take 1 tablet (10 mg) by mouth as directed. May repeat in 2 hours if needed albuterol HFA (VENTOLIN HFA) 90 mcg/actuation inhaler Inhale 2 Puffs as instructed every 4 hours as needed for wheezing/shortness of breath. atenolol (TENORMIN) 25 mg tablet Take 1 tablet by mouth once daily. ibuprofen (MOTRIN) 600 mg tablet Take 1 tablet by mouth every 8 hours as needed for pain (for migraines). meloxicam (MOBIC) 7.5 mg tablet Take 1 tablet by mouth once daily as needed for pain (for knee pain). With food. Do not take on days you take the ibuprofen. No current facility-administered medications for this visit. ALLERGIES Allergen Reactions Reglan [Metoclopram* [place]houn like coming out of her skin; felt like was was more nauseated the next day Zoloft [Sertraline * Intolerance, Diarrhea Forgetfullness; did not help with somnolence ACTIVE PROBLEM LIST Primary Hypertension - 08/11/2022 Calculus of Ureter - 08/04/2016 Gastroesophageal Reflux Disease - 08/04/2016 Bmi 60.0-69.9, Adult ([facility]) - 08/04/2016 Chronic Bronchitis ([facility]) - 08/04/2016 Kidney Stones - 07/24/2016 Excessive Daytime Sleepiness Panic Disorder Without Agoraphobia - 08/05/2006 Migraine Without Aura - 03/23/2005 Esophageal Reflux - 03/23/2005 Osteoarthritis of Multiple Joints - 03/11/2005 Sciatica - 03/11/2005 Social History Tobacco Use Smoking status: Never Smokeless tobacco: Never Vaping Use Vaping status: Never Used Substance Use Topics Alcohol use: No Drug use: Never Review of Systems Constitutional: Negative. Respiratory: Positive for shortness of breath. Negative for apnea, cough, choking, chest tightness, wheezing and stridor. Cardiovascular: Negative. OBJECTIVE BP 145/84[BP Calixto Average[ Pulse 74 Wt 322 lb 15.6 oz (146.5kg) SpO2 97% Physical Exam Vitals and nursing note reviewed. Constitutional: General: She is awake. She is not in acute distress. Appearance: Normal appearance. She is well-developed and well-groomed. She is not ill-appearing, toxic-appearing or diaphoretic. HENT: Head: Normocephalic. Right Ear: External ear normal. Left Ear: External ear normal. Nose: Nose normal. Eyes: General: Vision grossly intact. Conjunctiva/sclera: Conjunctivae normal. Pupils: Pupils are equal, round, and reactive to light. Neck: Vascular: No JVD. Trachea: Trachea normal. Cardiovascular: Rate and Rhythm: Normal rate and regular rhythm. Pulses: Normal pulses. Heart sounds: Murmur heard. Pulmonary: Effort: Pulmonary effort is normal. No accessory muscle usage, prolonged expiration or respiratory distress. Breath sounds: Normal breath sounds. Musculoskeletal: Cervical back: Neck supple. Skin: General: Skin is warm and dry. Capillary Refill: Capillary refill takes less than 2 seconds. Neurological: General: No focal deficit present. Mental Status: She is alert and oriented to person, place, and time. Mental status is at baseline. Psychiatric: Attention and Perception: Attention and perception normal. Mood and Affect: Mood and affect normal. Speech: Speech normal. Behavior: Behavior normal. Behavior is cooperative. Thought Content: Thought content normal. Cognition and Memory: Cognition and memory normal. Judgment: Judgment normal. ASSESSMENT/PLAN: 1. Primary hypertension - ICD9: 401.9, ICD10: I10 (primary diagnosis) - Uncontrolled - Factors affecting control: medication adherence - Recommend home blood pressure monitoring, to bring results to next visit - Encouraged sodium restriction, DASH or Mediterranean diet - Recommend regular aerobic exercise - Resume atenolol - ATENOLOL 25 MG TABLET 2. Migraine without aura and without status migrainosus, not intractable - ICD9: 346.10, ICD10: G43.009 - RIZATRIPTAN 10 MG (more content not included)... [facility] 04-12-2024 History of Presen t illness Narrative SUBJECTIVE Anastasia Heller is a 53 year old female here today for a check up on her medical problems. Chief Complaint Patient presents with: Letter Shortness of Breath Headache: states are coming back HPI Anastasia Heller is a 53 year old female. She is an established patient of Shauna Bello MD. She was last seen in the office 07/2022. Here today for follow up. Notes some concerns of shortness of breath but attributes this to weight, sitting and rest alleviates this. Having more headaches. Will get aura and tries to take NSAIDs before triptan. Not taking her blood pressure medication. Admits that she needs to work on weight loss, motivated to do this. Needs an updated letter with excuse from wearing a seat belt, Shauna Bello MD has done this in the past. Would like to update labs. Her medications were reviewed today and her list is now up to date. Medications Current Outpatient Medications Medication Sig rizatriptan (MAX[employer]IST) 10 mg disintegrating tablet Take 1 tablet (10 mg) by mouth as directed. May repeat in 2 hours if needed albuterol HFA (VENTOLIN HFA) 90 mcg/actuation inhaler Inhale 2 Puffs as instructed every 4 hours as needed for wheezing/shortness of breath. atenolol (TENORMIN) 25 mg tablet Take 1 tablet by mouth once daily. ibuprofen (MOTRIN) 600 mg tablet Take 1 tablet by mouth every 8 hours as needed for pain (for migraines). meloxicam (MOBIC) 7.5 mg tablet Take 1 tablet by mouth once daily as needed for pain (for knee pain). With food. Do not take on days you take the ibuprofen. No current facility-administered medications for this visit. ALLERGIES Allergen Reactions Reglan [Metoclopram* [place] like coming out of her skin; felt like was was more nauseated the next day Zoloft [Sertraline * Intolerance, Diarrhea Forgetfullness; did not help with somnolence ACTIVE PROBLEM LIST Primary Hypertension - 08/11/2022 Calculus of Ureter - 08/04/2016 Gastroesophageal Reflux Disease - 08/04/2016 Bmi 60.0-69.9, Adult (Hcc) - 08/04/2016 Chronic Bronchitis ([facility]) - 08/04/2016 Kidney Stones - 07/24/2016 Excessive Daytime Sleepiness Panic Disorder Without Agoraphobia - 08/05/2006 Migraine Without Aura - 03/23/2005 Esophageal Reflux - 03/23/2005 Osteoarthritis of Multiple Joints - 03/11/2005 Sciatica - 03/11/2005 Social History Tobacco Use Smoking status: Never Smokeless tobacco: Never Vaping Use Vaping status: Never Used Substance Use Topics Alcohol use: No Drug use: Never Review of Systems Constitutional: Negative. Respiratory: Positive for shortness of breath. Negative for apnea, cough, choking, chest tightness, wheezing and stridor. Cardiovascular: Negative. OBJECTIVE BP 145/84[BP Calixto Average[ Pulse 74 Wt 322 lb 15.6 oz (146.5kg) SpO2 97% Physical Exam Vitals and nursing note reviewed. Constitutional: General: She is awake. She is not in acute distress. Appearance: Normal appearance. She is well-developed and well-groomed. She is not ill-appearing, toxic-appearing or diaphoretic. HENT: Head: Normocephalic. Right Ear: External ear normal. Left Ear: External ear normal. Nose: Nose normal. Eyes: General: Vision grossly intact. Conjunctiva/sclera: Conjunctivae normal. Pupils: Pupils are equal, round, and reactive to light. Neck: Vascular: No JVD. Trachea: Trachea normal. Cardiovascular: Rate and Rhythm: Normal rate and regular rhythm. Pulses: Normal pulses. Heart sounds: Murmur heard. Pulmonary: Effort: Pulmonary effort is normal. No accessory muscle usage, prolonged expiration or respiratory distress. Breath sounds: Normal breath sounds. Musculoskeletal: Cervical back: Neck supple. Skin: General: Skin is warm and dry. Capillary Refill: Capillary refill takes less than 2 seconds. Neurological: General: No focal deficit present. Mental Status: She is alert and oriented to person, place, and time. Mental status is at baseline. Psychiatric: Attention and Perception: Attention and perception normal. Mood and Affect: Mood and affect normal. Speech: Speech normal. Behavior: Behavior normal. Behavior is cooperative. Thought Content: Thought content normal. Cognition and Memory: Cognition and memory normal. Judgment: Judgment normal. ASSESSMENT/PLAN: 1. Primary hypertension - ICD9: 401.9, ICD10: I10 (primary diagnosis) - Uncontrolled - Factors affecting control: medication adherence - Recommend home blood pressure monitoring, to bring results to next visit - Encouraged sodium restriction, DASH or Mediterranean diet - Recommend regular aerobic exercise - Resume atenolol - ATENOLOL 25 MG TABLET 2. Migraine without aura and without status migrainosus, not intractable - ICD9: 346.10, ICD10: G43.009 - RIZATRIPTAN 10 MG DISINTEGRATING TABLET - IBUPROFEN 600 MG TABLET 3. Chronic bronchitis, unspecified chronic bronchitis type (HCC) - ICD9: 491.9, ICD10: J42 - ALBUTEROL SULFATE HFA 90 MCG/ACTUATION AEROSOL INHALER 4. Encounter for immunization - ICD9: V03.89, ICD10: Z23 - INFLUENZA VACCINE, AGE 6MO-64YR, TRIVALENT (AFLURIA, FLULAVAL, FLUVIRIN, FLUZONE) 5. Screening for depression - ICD9: V79.0, ICD10: Z13.31 - DEPRESSION SCREENING 6. Vitamin D deficiency - ICD9: 268.9, ICD10: E55.9 - VITAMIN D 25 HYDROXY 7. Elevated glucose - ICD9: 790.29, ICD10: R73.09 - HEMOGLOBIN A1C 8. Elevated triglycerides with high cholesterol - ICD9: 272.2, ICD10: E78.2 - Control undetermined, due for labs - Counseled on healthy diet and regular exercise - LIPID PANEL, NONFASTING 9. Encounter for therapeutic drug monitoring - ICD9: V58.83, ICD10: Z51.81 - COMPLETE BLOOD COUNT AND DIFFERENTIAL - COMPREHENSIVE METABOLIC PANEL - VITAMIN B12 10. Cardiac murmur - ICD9: 785.2, ICD10: R01.1 Get ECHO to evaluate murmur heard today, this could be contributing to her SOB. - ECHO - PERFLUTREN LIPID MICROSPHERES 1.1 MG/ML INJECTION IN NS 10 ML - SODIUM CHLORIDE 0.9 % (FLUSH) INJECTION SYRINGE 11. Osteoarthritis of multiple joints, unspecified osteoarthritis type - ICD9: 715.89, ICD10: M15.9 See Letter in communications. Portions of this note have been entered by ancillary staff. I have reviewed and when necessary edited, so that they are an adequate record of my encounter with this patient Please note that parts of this document were created using voice recognition software and therefore may contain grammatical errors. Patient verbalizes understanding of instructions from today's visit and in agreement with treatment plan. Questions answered. Agrees to call the office if questions, concerns of issues with acute symptoms not improving or if they worsen. See diagnoses and orders for additional plan(s). Allergies and medications were reviewed, list was updated, and refills given if needed. Past medical, surgical, social, and family history reviewed and updated as appropriate. Encouraged proper diet & exercise as well as compliance with taking medications. Age-appropriate health preventative measures were discussed. Return in about 3 months (around 07/13/2024) for Follow up on chronic conditions and medications.. Sundeep Domínguez APRN-MICHELLE documented in this encounter [facility] 04-11-2024 Telephone encounter Note Patient stopped in office asking for letter from 2022 to be signed regarding seat belt. Patient has not been since 08/11/22. Informed patient that she will need an appointment, pt reports that she has court tomorrow at 0800am and needs signed before. Patient offered appointments with [facility] today, declined. Scheduled with Sundeep ferguson, 04/12/24 at 1pm. Ami Eagle MA [facility] 04-11-2024 Miscellaneous Notes Patient stopped in office asking for letter from 2022 to be signed regarding seat belt. Patient has not been since 08/11/22. Informed patient that she will need an appointment, pt reports that she has court tomorrow at 0800am and needs signed before. Patient offered appointments with [facility] today, declined. Scheduled with Sundeep ferguson, 04/12/24 at 1pm. Ami Eagle MA documented in this encounter [facility] 02-17-2024 Hospital Discharg e instructions Patient Education 02/17/2024 15:55:07 Cellulitis Skin Infection Cellulitis Cellulitis is an infection of the deep layers of skin. A break in the skin, such as a cut or scratch, can let bacteria under the skin. If the bacteria get to deep layers of the skin, it can be serious. If not treated, cellulitis can get into the bloodstream and lymph nodes. The infection can then spread throughout the body. This causes serious illness. Cellulitis causes the affected skin to become red, swollen, warm, and sore. The reddened areas have a visible border. An open sore may leak fluid (pus). You may have a fever, chills, and pain. Cellulitis is treated with antibiotics taken for 7 to 10 days. An open sore may be cleaned and covered with cool wet gauze. Symptoms should get better 1 to 2 days after treatment is started. Make sure to take all the antibiotics for the full number of days until they are gone. Keep taking the medicine even if your symptoms go away. Home care Follow these tips: Limit the use of the part of your body with cellulitis. If the infection is on your leg, keep your leg raised while sitting. This will help to reduce swelling. Take all of the antibiotic medicine exactly as directed until it is gone. Do not miss any doses, especially during the first 7 days. Don t stop taking the medicine when your symptoms get better. Keep the affected area clean and dry. Wash your hands with soap and warm water before and after touching your skin. Anyone else who touches your skin should also wash his or her hands. Don't share towels. Follow-up care Follow up with your healthcare provider, or as advised. If your infection does not go away on the first antibiotic, your healthcare provider will prescribe a different one. When to seek medical advice Call your healthcare provider right away if any of these occur: Red areas that spread Swelling or pain that gets worse Fluid leaking from the skin (pus) Fever higher of 100.4 F (38.0 C) or higher after 2 days on antibiotics [id number] [employer]. [address] [place] [address]. All rights reserved. This information is not intended as a substitute for professional medical care. Always follow your healthcare professional's instructions. Follow Up Care 02/17/2024 15:19:46 With:SHAUNA BELLO MD Address: [address] [place] [phone]- When:2-4 days [facility] 02-17-2024 Note Discharge Instructions Thank you for allowing [facility] to assist you with your healthcare needs. The following is important discharge information regarding your hospital visit. Diagnosis from Today's Visit Cellulitis What to Do Next Instructions from Your Care Team No qualifying data available. Post Acute Orders No qualifying data available. You Need to Schedule the Following Appointments Follow Up with SHAUNA BELLO MD When:Within 2-4 days Where:[address] [facility] [place] [address]- Allergies Reglan Zoloft Medications Please ask your primary doctor or pharmacist before taking any other medication not listed, including over the counter drugs, herbal medications, vitamins and or supplements as they may interact with your home medications. What How Much When Instructions Last Dose New clindamycin (Cleocin HCl 300 mg oral capsule) 1 cap by mouth Every 8 hours Duration: 10 Days Printed Prescription Please take this list to your next doctor s visit. Bring all medications you take, including over the counter medications, herbals and other supplements with you to your doctor s visit. Patients and families are reminded to discard old lists and to update any records with all medication providers or retail pharmacies. Medication Leaflets clindamycin (oral/injection) (madid Bell) Cleocin HCl, Cleocin Pediatric, Cleocin Phosphate What is the most important information I should know about clindamycin? Clindamycin can cause diarrhea, which may be severe or lead to serious, life-threatening intestinal problems. If you have diarrhea that is watery or bloody, stop using clindamycin and call your doctor. What is clindamycin? Clindamycin is an antibiotic that is used to treat serious infections caused by bacteria. Clindamycin may also be used for purposes not listed in this medication guide. What should I discuss with my healthcare provider before using clindamycin? You should not use this medicine if you are allergic to clindamycin or lincomycin. Tell your doctor if you have ever had: colitis, Crohn's disease, or other intestinal disorder; eczema, or allergic skin reaction; asthma or a severe allergic reaction to aspirin; liver or kidney disease; or an allergy to yellow food dye. It is not known whether this medicine will harm an unborn baby. Tell your doctor if you are or plan to become . Clindamycin can pass into breast milk and may cause side effects in the nursing baby. If you are while taking this medicine, call your doctor if your baby has diaper rash, redness or white patches in the mouth or throat, stomach discomfort, or diarrhea that is watery or bloody. Clindamycin injection may contain an ingredient that can cause serious side effects or in very young or premature babies. Do not give this medicine to a child without medical advice. How should I use clindamycin? Follow all directions on your prescription label and read all medication guides or instruction sheets. Use the medicine exactly as directed. Clindamycin oral is taken by mouth. Clindamycin injection is injected into a muscle, or as an infusion into a vein. A healthcare provider will give your first dose and may teach you how to properly use the medication by yourself. Take the capsule with a full glass of water to keep it from irritating your throat. Measure liquid medicine carefully. Use the dosing syringe provided, or use a medicine dose-measuring device (not a kitchen spoon). You may need frequent medical tests during treatment. If you need surgery, tell your surgeon you currently use clindamycin. Use this medicine for the full prescribed length of time, even if your symptoms quickly improve. Skipping doses can increase your risk of infection that is resistant to medication. Clindamycin will not treat a viral infection such as the flu or a common cold. Store at room temperature away from moisture and heat. Protect the injectable medicine from high heat. Do not store the oral liquid in the refrigerator. Throw away any unused oral liquid after 2 weeks. Use a needle and syringe only once and then place them in a puncture-proof 'sharps' container. Follow state or local laws about how to dispose of this container. Keep it out of the reach of children and pets. What happens if I miss a dose? Use the medicine as soon as you can, but skip the missed dose if it is almost time for your next dose. Do not use two doses at one time. What happens if I overdose? Seek emergency medical attention or call the Poison Help line at . What should I avoid while using clindamycin? Antibiotic medicines can cause diarrhea, which may be a sign of a new infection. If you have diarrhea that is watery or bloody, call your doctor. Do not use anti-diarrhea medicine unless your doctor tells you to. What are the possible side effects of clindamycin? Get emergency medical help if you have signs of an allergic reaction (hives, difficult breathing, swelling in your face or throat) or a severe skin reaction (fever, sore throat, burning in your eyes, skin pain, red or purple skin rash that spreads and causes blistering and peeling). Seek medical treatment if you have a serious drug reaction that can affect many parts of your body. Symptoms may include: skin rash, fever, swollen glands, flu-like symptoms, muscle aches, severe weakness, unusual bruising, or yellowing of your skin or eyes. Call your doctor at once if you have: kidney problems--swelling, urinating less, feeling tired or short of breath; liver problems--loss of appetite, stomach pain (upper right side), tiredness, itching, dark urine, pattie-colored stools, jaundice (yellowing of the skin or eyes); any change in bowel habits; severe stomach pain, diarrhea that is watery or bloody; little or no urination; or a metallic taste in your mouth (after clindamycin injection). Common side effects may include: nausea, vomiting, stomach pain; mild skin rash; or vaginal itching or discharge; This is not a complete list of side effects and others may occur. Call your doctor for medical advice about side effects. You may report side effects to FDA at 5-795-GNV-2119. What other drugs will affect clindamycin? Sometimes it is not safe to use certain medications at the same time. Some drugs can affect your blood levels of other drugs you take, which may increase side effects or make the medications less effective. Other drugs may affect clindamycin, including prescription and jpvu-oei-woqumvy medicines, vitamins, and herbal products. Tell your doctor about all your current medicines and any medicine you start or stop using. Where can I get more information? Your pharmacist can provide more information about clindamycin. Remember, keep this and all other medicines out of the reach of children, never share your medicines with others, and use this medication only for the indication prescribed. Every effort has been made to ensure that the information provided by [employer] is accurate, up-to-date, and complete, but no guarantee is made to that effect. Drug information contained herein may be time sensitive. [employer] information has been compiled for use by healthcare practitioners and consumers in the [place] and therefore [employer] does not warrant that uses outside of the [place] are appropriate, unless specifically indicated otherwise. [employer] drug information does not endorse drugs, diagnose patients or recommend therapy. [employer] drug information is an informational resource designed to assist licensed healthcare practitioners in caring for their patients and/or to serve consumers viewing this service as a supplement to, and not a substitute for, the expertise, skill, knowledge and judgment of healthcare practitioners. The absence of a warning for a given drug or drug combination in no way should be construed to indicate that the drug or drug combination is safe, effective or appropriate for any given patient. [employer] does not assume any responsibility for any aspect of healthcare administered with the aid of information [employer] provides. The information contained herein is not intended to cover all possible uses, directions, precautions, warnings, drug interactions, allergic reactions, or adverse effects. If you have questions about the drugs you are taking, check with your doctor, nurse or pharmacist. Copyright 8661-9818 [employer] Version: 14.. Revision Date: 02/17/2022. Education Materials Cellulitis Cellulitis is an infection of the deep layers of skin. A break in the skin, such as a cut or scratch, can let bacteria under the skin. If the bacteria get to deep layers of the skin, it can be serious. If not treated, cellulitis can get into the bloodstream and lymph nodes. The infection can then spread throughout the body. This causes serious illness. Cellulitis causes the affected skin to become red, swollen, warm, and sore. The reddened areas have a visible border. An open sore may leak fluid (pus). You may have a fever, chills, and pain. Cellulitis is treated with antibiotics taken for 7 to 10 days. An open sore may be cleaned and covered with cool wet gauze. Symptoms should get better 1 to 2 days after treatment is started. Make sure to take all the antibiotics for the full number of days until they are gone. Keep taking the medicine even if your symptoms go away. Home care Follow these tips: Limit the use of the part of your body with cellulitis. If the infection is on your leg, keep your leg raised while sitting. This will help to reduce swelling. Take all of the antibiotic medicine exactly as directed until it is gone. Do not miss any doses, especially during the first 7 days. Don t stop taking the medicine when your symptoms get better. Keep the affected area clean and dry. Wash your hands with soap and warm water before and after touching your skin. Anyone else who touches your skin should also wash his or her hands. Don't share towels. Follow-up care Follow up with your healthcare provider, or as advised. If your infection does not go away on the first antibiotic, your healthcare provider will prescribe a different one. When to seek medical advice Call your healthcare provider right away if any of these occur: Red areas that spread Swelling or pain that gets worse Fluid leaking from the skin (pus) Fever higher of 100.4 F (38.0 C) or higher after 2 days on antibiotics [id number] [employer]. [address] [place] [address], [place] [address]. All rights reserved. This information is not intended as a substitute for professional medical care. Always follow your healthcare professional's instructions. Additional Information VACCINATE! IT SAVES LIVES! Members of the community who have not yet received the COVID-19 vaccine and would like to receive it can visit one of [facility] vaccine clinics. There are many vaccine clinic locations within the [facility]. For locations and available times, please visit [email or web address] It is important to note that some COVID mobile vaccine clinics are held outdoors and may be canceled in rainy or stormy conditions. To learn more about pediatric vaccinations (ages 5-11), we invite you to visit the [facility] Childrens webpage. [email or web address] To learn more about the COVID-19 vaccine, we invite you to visit the CDC website for a list of frequently asked questions. https://www.cdc.gov/coronavirus/ 2019-ncov/vaccines/faq.html [facility] Patient [facility] Access Instructions: Stay connected with your healthcare team and access your personal medical information anytime with the [facility] Patient Portal. If you would like a full copy of your medical records please contact the [facility] Medical Records Department Wednesday through Wednesday between 8a.m. and 4:30p.m. Please follow the directions below to access the portal: 1.Access the email account you provided upon registration to the [facility].2.Look for an invitation email from [facility].3.Open the email and access the invitation link: Accept Invitation to [employer]4.Fill in the required landaverde to create your account. Sign into [email or web address] with your username and password that you created in the above steps to stay up to date. You can then view a summary of results, a summary of your visits, and the ability to download your summaries to your computer or send the information securely to a physician. Remember that your healthcare information is confidential, so carefully consider who you will allow to register on the [facility] Patient Portal for access to your information. You can also access the [employer] Patient Portal on the [employer]Coin. Simply click on Health Records under Health Data and then click on the [employer] logo. HOW TO SAFELY DISPOSE OF PRESCRIPTION MEDICATIONS Please use one of the following methods to safely dispose of your unused medications. 1.Use a drug disposal kit: the drug disposal pouch allows you to safely discard your old and unused drugs. Ask your nurse to give you one when you are discharged.2.Visit a local take-back location: Many local pharmacies and police departments have programs that collect old and unwanted prescription drugs. Call your local pharmacy or go to http://[employer].RunMyProcess/4S3Jy0b to find one close to you.3.Make use of household items: Use cat litter or old coffee grounds to dispose medications if other options are not available. Mix your drugs with these household products, seal them in an airtight container and throw it into the garbage. Call [facility]: [phone] to be sure your drugs can be disposed of in this way. Some medicines may require a different approach.4.Never flush your medications down the toilet. IF YOU HAVE BEEN PRESCRIBED AN OPIOIDS FOR PAIN If you have been prescribed an opioid (such as hydrocodone, oxycodone or morphine), it is critical to understand the possible side effects and risks of opioid pain medications. Even when taken as directed, opioids can have several side effects including: Tolerance, meaning you might need to take more of a medication for the same pain relief. Nausea, vomiting and/or constipation. Sleepiness, dizziness, dry mouth, confusion, depression or itching. Physical dependence, meaning you have withdrawal symptoms when a medication is stopped ? this can develop within a few days. KNOW YOUR RESPONSIBILITIES It is important to know exactly how much and how often to take the opioid pain medications you are prescribed. Never take opioids in higher amounts or more often than prescribed. Do not combine opioids with alcohol or other drugs that cause drowsiness, such as benzodiazepines, also known as benzos, including diazepam and alprazolam, muscle relaxants or sleep aids. Never sell or share prescription opioids. This is illegal. Store opioids in a secure place and out of reach of others (including children, family, friends and visitors). The last page(s) of this document has been signed and retained as a CHART COPY Signatures Patient Education Materials Cellulitis Skin Infection Medication Leaflets clindamycin (oral/injection) My discharge plan and instructions have been reviewed and explained to me and I,ANASTASIA HELLER understand my current condition and have read and understand these discharge instructions. I have received a written copy of the plan/instructions. If I have questions, I am aware that I should contact my doctor. 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 FALL SCREENING: Has the patient had 2 falls in the last year or 1 fall with injury or currently using an Ambulatory Assistive Device (Walker, Cane, Wheelchair, Crutches, etc.)? No PATIENT GENDER DATA: Female. status: : No status: NO. PATIENT RELEVANT IMPLANT DATA REVIEWED: Not Applicable PATIENT PRESENTS WITH AN IMPLANTABLE OR ATTACHED HEAD FILTER TANK TENDER HELPER: No RADIOLOGY DEPARTMENT: General X-ray: Exam(s) Completed: Rib X-Ray: Right PERIPHERAL IV DATA: Not applicable SIGNED BY: RT Trisha(R) July 26, 2023 2:28 PM documented in this encounter [facility] 07-26-2023 History of Presen t illness Narrative Images from the original note were not included. Subjective Patient came in with complaints of pain under her right breast. Patient says it is more located in the rib area. Patient says she had this before and believes it might have been gas. Patient says she wanted to make sure there was nothing wrong with her ribs. Patient denies any chest pain pressure shortness of breath numbness or tingling in her arms back pain jaw pain. Patient denies any pleuritic pain. The history is provided by the patient. No diesel technician was used. Review of Systems Constitutional: Negative. Skin: Negative. Objective Physical Exam Constitutional: Appearance: Normal appearance. Pulmonary: Effort: Pulmonary effort is normal. Musculoskeletal: Arms: Comments: Patient is tender in the area marked above when palpated. No deformities noted. Neurological: Mental Status: She is alert. PAST MEDICAL HISTORY Diagnosis Date Allergic rhinitis, cause unspecified Calculus of kidney Daytime sleepiness Endometrial hyperplasia, unspecified 05/04/06 Esophageal reflux 03/23/2005 Generalized osteoarthrosis, unspecified site Migraine without aura, without mention of intractable migraine without mention of status migrainosus 03/23/2005 Panic disorder without agoraphobia Sciatica PAST SURGICAL HISTORY Procedure Laterality Date VAGINAL HYSTERECTOMY UTERUS 250 GM/< 05/04/06 Hysterectomy, vaginal with left oophrectomy ALLERGIES Reglan [Metoclopramide Hcl] and Zoloft [Sertraline Hcl] MEDICATIONS rizatriptan (MAXALT-ENGINEERING DOCUMENTATION SPECIALIST) 10 mg disintegrating tablet Take 1 tablet by mouth as directed. May repeat in 2 hours if needed albuterol HFA (VENTOLIN HFA) 90 mcg/actuation inhaler Inhale 2 Puffs as instructed every 4 hours as needed for wheezing/shortness of breath. atenolol (TENORMIN) 25 mg tablet Take 1 tablet by mouth once daily. Benzonatate 200 mg capsule Take 1 capsule by mouth three times daily as needed. albuterol (PROVENTIL) 2.5 mg /3 mL (0.083 %) nebulizer solution Use 3 mL via nebulizer one time only for 1 dose. Use over 5-15minutes. FAMILY HISTORY Problem Relation Age of Onset Hypertension Mother depression,anxiety Diabetes Mother Hypertension Maternal Grandfather cad, Hypertension Paternal Grandmother other (graves disease [Other]) Son Diabetes Maternal Uncle type 2 Social History Tobacco Use Smoking status: Never Smokeless tobacco: Never Vaping Use Vaping Use: Never used Substance Use Topics Alcohol use: No Drug use: Never ASSESSMENT/PLAN: 1. Pain - ICD9: 780.96, ICD10: R52 - XR RIBS/CHEST 3V AP RIB/OBLS/CXR RIGHT * * * * Physician Interpretation * * * * TITLE: XR RIB/CHST 3V AP RIB/OBL/CHST R CLINICAL INDICATION: Pain TECHNIQUE: 3 view right side a radiographic rib series with inclusion of a single frontal view of the chest for purposes of comparison/symmetry COMPARISON: None FINDINGS: No acute displaced right rib fracture identified. Normal cardiomediastinal silhouette. No focal consolidation. No discernible pleural effusion or pneumothorax. Bone island in the right humeral head. Degenerative changes in the spine. IMPRESSION IMPRESSION: No radiographic evidence of acute displaced right rib fracture Nuclear Equipment Design Engineer: [facility] Transcribe Date/Time: Jul 26 2023 2:37P Dictated by : PIETER TOBRA MD Ibuprofen was called in. Patient was educated about proper use of medication and supportive therapies. Patient will follow-up with signs and symptoms seem to be getting worse not better. Patient was okay with this care plan. Ilan Trinh APRN.MICHELLE documented in this encounter [facility] 08-11-2022 History of Past i llness Narrative Problem Noted Date Resolved Date Allergic rhinitis 08/11/2022 Neck pain 08/11/2022 documented as of this encounter (statuses as of 08/11/2022) [facility]03-21-2023 History of Past illness Narrative* Problem Noted Date Diagnosed Date Resolved Date Allergic rhinitis 08/11/2022 Neck pain 08/11/2022 documented as of this encounter (statuses as of 07/26/2023) [facility]03-21-2023 History of Past illness Narrative* Problem Noted Date Diagnosed Date Resolved Date Allergic rhinitis 08/11/2022 Neck pain 08/11/2022 documented as of this encounter (statuses as of 08/02/2023) [facility]03-21-2023 History of Present illness Narrative* Sundeep Domínguez APRN.EXTRACT WRINGER - 08/11/2022 11:16 AM EDT SUBJECTIVE Anastasia Heller is a 52 year old female here today for a check up on her medical problems. Chief Complaint Patient presents with: Physical HPI Anastasia Heller is a 52 year old female established patient of Dr. Vincent. Seen by Shauna Bello MD in 2017, seen acutely with internal medicine 2021 and also various times with [facility]. Here for refills, routine check up. She did do blood work this morning. Had a CBC, vitamin D, hgba1c, lipid panel, and CMP drawn. Blood pressure up today but a lot of stress at home right now. History ofmigraines, anxiety, over weight, and some arthritis. Use of ativan very sparingly. Headaches overall controlled, maybe occurring once per month. Use of her albuterol rarely, usually only when sick. No family history of colon cancer. Wants to work on losing weight, if can do it on her own would prefer not to have gastric/bariatric surgery. Her medications were reviewed today and her list is now up to date. Medications Current Outpatient Medications Medication Sig rizatriptan (MAXALT-ENGINEERING DOCUMENTATION SPECIALIST) 10 mg disintegrating tablet Take 1 tablet by mouth as directed. May repeatin 2 hours if needed albuterol HFA (VENTOLIN HFA) 90 mcg/actuation inhaler Inhale 2 Puffs as instructed every 4 hours asneeded for wheezing/shortness of breath. LORazepam (ATIVAN) 0.5 mg Take 1 tablet by mouth once daily as needed (anxiety) for up to 30 days. atenolol (TENORMIN) 25 mg tablet Take 1 tablet by mouth once daily. Benzonatate 200 mg capsule Take 1 capsule by mouth three times daily as needed. albuterol (PROVENTIL) 2.5 mg /3 mL (0.083 %) nebulizer solution Use 3 mL via nebulizer one time only for 1 dose. Use over 5-15minutes. No current facility-administered medications for this visit. ALLERGIES Allergen Reactions Reglan [Metoclopram* [place] like coming out of her skin; felt like was was more nauseated the next day Zoloft [Sertraline * Intolerance, Diarrhea Forgetfullness; did not help with somnolence ACTIVE PROBLEM LIST Primary Hypertension - 08/11/2022 Calculus of Ureter - 08/04/2016 Gastroesophageal Reflux Disease - 08/04/2016 Bmi 60.0-69.9, Adult ([facility]) - 08/04/2016 Chronic Bronchitis ([facility]) - 08/04/2016 Kidney Stones - 07/24/2016 Excessive Daytime Sleepiness Panic Disorder Without Agoraphobia - 08/05/2006 Migraine Without Aura - 03/23/2005 Esophageal Reflux - 03/23/2005 Generalized Osteoarthrosis, Unspecified Site - 03/11/2005 Sciatica - 03/11/2005 Social History Tobacco Use Smoking status: Never Smokeless tobacco: Never Vaping Use Vaping Use: Never used Substance Use Topics Alcohol use: No Drug use: Never Review of Systems Constitutional: Negative. Respiratory: Negative. Cardiovascular: Negative. OBJECTIVE BP 160/98 Pulse 87 Temp 97.8 Resp 14 Ht 4' 11.5 (1.51m) Wt 312 lb (141.5kg) SpO2 97% BMI 61.99 kg/(m^2). Physical Exam Vitals and nursing note reviewed. Constitutional: General: She is awake. She is not in acute distress. Appearance: Normal appearance. She is well-developed and well-groomed. She is morbidly obese. She is not ill-appearing, toxic-appearing or diaphoretic. HENT: Head: Normocephalic. Right Ear: External ear normal. Left Ear: External ear normal. Nose: Nose normal. Eyes: General: Vision grossly intact. Conjunctiva/sclera: Conjunctivae normal. Pupils: Pupils are equal, round, and reactive to light. Neck: Vascular: No JVD. Trachea: Trachea normal. Cardiovascular: Rate and Rhythm: Normal rate and regular rhythm. Pulses: Normal pulses. Heart sounds: Normal heart sounds. No murmur heard. Pulmonary: Effort: Pulmonary effort is normal. No accessory muscle usage, prolonged expiration or respiratory distress. Breath sounds: Normal breath sounds. Musculoskeletal: Cervical back: Neck supple. Skin: General: Skin is warm and dry. Capillary Refill: Capillary refill takes less than 2 seconds. Neurological: General: No focal deficit present. Mental Status: She is alert and oriented to person, place, and time. Mental status is at baseline. Psychiatric: Attention and Perception: Attention and perception normal. Mood and Affect: Mood and affect normal. Speech: Speech normal. Behavior: Behavior normal. Behavior is cooperative. Thought Content: Thought content normal. Cognition and Memory: Cognition and memory normal. Judgment: Judgment normal. ASSESSMENT/PLAN: 1. Primary hypertension - ICD9: 401.9, ICD10: I10 (primary diagnosis) - newly diagnosed - Begin atenolol (Tenormin) - Encouraged dietary sodium restriction/DASH diet - Recommended regular aerobic exercise. - Recommend home blood pressure monitoring, to bring results in on next visit - Discussed need and benefit for weight loss. - Follow up in 1 month for BP recheck. - Recheck in 4 weeks, sooner should new symptoms or problems arise. - Reviewed risks of HTN and principles of treatment - Goal of BP <140/90 - ATENOLOL 25 MG TABLET 2. Migraine without aura and without status migrainosus, not intractable - ICD9: 346.10, ICD10: G43.009 Stable, controlled. - RIZATRIPTAN 10 MG DISINTEGRATING TABLET 3. Panic disorder without agoraphobia - ICD9: 300.01, ICD10: F41.0 Stable, controlled. Ativan sparingly. [facility] and [facility]. All prescriptions have been APPROPRIATELY filled. No suspiciousactivity was identified. 08/11/2022 by Sundeep Domínguez APRN.EXTRACT WRINGER Depression Screening 11/29/2015 05/20/2018 08/11/2022 PHQ-2 Score 0 0 0 Depression screening tool completed and reviewed. Based on score and interview, patient is not at risk for depression. Screening tool discussed with patient, and I recommended no further interventionat this time. - DEPRESSION SCREENING/ASSESSMENT - LORAZEPAM 0.5 MG TABLET 4. Chronic bronchitis, unspecified chronic bronchitis type (HCC) - ICD9: 491.9, ICD10: J42 - ALBUTEROL SULFATE HFA 90 MCG/ACTUATION AEROSOL INHALER 5. BMI 60.0-69.9, adult (HCC) - ICD9: V85.44, ICD10: Z68.44 Wants to work on weight loss, consult to e wrestling coach - CONSULT TO ECOACHING WELLNESS 6. Screening mammogram for breast cancer - ICD9: V76.12, ICD10: Z12.31 - PATRICIA SCREENING W JERICHO 7. Screening for depression - ICD9: V79.0, ICD10: Z13.31 - DEPRESSION SCREENING/ASSESSMENT 8. Colon cancer screening - ICD9: V76.51, ICD10: Z12.11 - COLOGUARD Portions of this note have been entered by ancillary staff. I have reviewed and when necessary edited, so that they are an adequate record of my encounter with this patient Please note that parts of this document were created using voice recognition software and therefore may contain grammatical errors. Patient verbalizes understanding of instructions from today's visit and in agreement with treatmentplan. Questions answered. Agrees to call the office if questions, concerns of issues with acute symptoms not improving or if they worsen. See diagnoses and orders for additional plan(s). Allergies and medications were reviewed, list was updated, and refills given if needed. Past medical, surgical, social, and family history reviewed and updated as appropriate. Encouraged proper diet & exercise as well as compliance with taking medications. Age- appropriate health preventative measures were discussed. Return in about 4 weeks (around 09/08/2022) for recheck on blood pressure. Sundeep Domínguez APRN-MICHELLE [facility] Miscellaneous Notes* Telephone Encounter - Lesly Goodson LPN - 07/15/2022 4:18 PM EST Pt called to request a copy of the letter regarding seatbelts be copied and put in Medical records for product picker tonight 07-15-22. Pt did not get her copy in the mail and she needs this for tomorrow. Done. Lesly Goodson LPN [facility] Miscellaneous Notes* Telephone Encounter - Venita Huff LPN - 07/10/2022 12:59 PM EST Letter printed and signed by provider. Patient aware and requested be sent to her in the mail. Addressed and placed in mail slot. Venita Huff LPN * Telephone Encounter - Venita Huff LPN - 07/10/2022 12:14 PM EST Patient aware of fasting labs being ordered. Requesting the seatbelt letter be addressed as soon as possible, please call patient when ready. Patient unsure if can be faxed to [place], will most likely have it mailed to her. Venita Huff LPN * Telephone Encounter - Shauna Bello MD - 07/10/2022 12:37 AM EST Fasting last ordered * Telephone Encounter - Kamala Pearson LPN - 07/09/2022 3:00 PM EST Patient calling asking for lab work orders, she is scheduled for yearly with Sundeep on 07/20/2022. Last labs were done 2018, not sure what orders to pend. Patient was also asking about a seatbelt letter? She said she had one many years ago so she does not have to wear a seatbelt. Please advise [facility] Note. MICRO - Microbiology PROCEDURE: Culture Wound Aerobic with Gram Stain [*1] SOURCE: Ulcer BODY SITE: Abdomen COLLECTED DATE/TIME: 06/13/2022 13:45 EST RECEIVED DATE/TIME: 06/14/2022 20:34 EST START DATE/TIME: 06/14/2022 20:35 EST FREE TEXT SOURCE: FINAL REPORTS Final Report [] Verified Date/Time/Personnel: 06/17/2022 07:52 EST Few Staphylococcus aureus Few Normal skin [place] present. Sensitivity testing not indicated. PRELIMINARY REPORTS Preliminary Report [] Verified Date/Time/Personnel: 06/16/2022 08:40 EST Few Staphylococcus aureus ALEX to follow Few Normal skin [place] present. Sensitivity testing not indicated. Preliminary Report [] Verified Date/Time/Personnel: 06/15/2022 11:57 EST Culture results pending. STAINS GS [] Verified Date/Time/Personnel: 06/15/2022 01:45 EST No organisms seen. SUSCEPTIBILITY RESULTS Staphylococcus aureus Antibiotic ALEX Dilut ALEX Inter Ampicillin >8 Beta Lactamase Positive Ampicillin/ <=8/4 Susceptible Sulbactam Azithromycin <=2 Susceptible Cefepime <=4 Susceptible Cefotaxime <=8 Susceptible Ceftaroline <=0.5 Susceptible Ceftriaxone <=4 Susceptible Ciprofloxacin <=1 Susceptible Clindamycin <=0.25 Susceptible Erythromycin <=0.25 Susceptible Imipenem <=4 Susceptible Levofloxacin <=1 Susceptible Meropenem <=2 Susceptible Oxacillin <=0.25 Susceptible Penicillin >2 Beta Lactamase Positive Piperacillin/ <=8 Susceptible Tazobactam Tetracycline <=4 Susceptible Trimethoprim/ <=0.5/9.5 Susceptible Sulfa Vancomycin 0.5 Susceptible Performing Locations *1: This test was performed at: [address], [facility] , [facility] access hospital ([place])06-16-2022 Note. MICRO - Microbiology PROCEDURE: Urine Culture [*1] SOURCE: Urine, Clean Catch BODY SITE: COLLECTED DATE/TIME: 06/13/2022 13:19 EST RECEIVED DATE/TIME: 06/14/2022 20:34 EST START DATE/TIME: 06/14/2022 20:35 EST FREE TEXT SOURCE: FINAL REPORTS Final Report [] Verified Date/Time/Personnel: 06/16/2022 07:25 EST >100,000 cfu/ml Multiple bacterial morphotypes present. Probable Contamination. Suggest recollection if clinically indicated. PRELIMINARY REPORTS Preliminary Report [] Verified Date/Time/Personnel: 06/15/2022 09:20 EST Culture results pending. Performing Locations *1: This test was performed at: [facility], [address] [place] [address], [id number] , Critical access hospital ([place])06-13-2022 Hospital Discharge instructions Patient Education 06/13/2022 13:33:20 Wound Care Wound Care Taking proper care of your wound will help it heal. Your healthcare provider may show you how to clean and dress the wound. He or she will also explain how to tell if the wound is healing normally. If you are unsure of how to take care of the wound, be sure to clarify what dressing to use and how often you should change the bandages. Here are the basic steps. A wound that's not healing normally may be dark in color or have white streaks. Wash your hands Tips for washing your hands include: Use liquid soap and lather for 2 minutes. Scrub between your fingers and under your nails. Rinse with warm water, keeping your fingers pointing down. Use a paper towel to dry your hands and to turn off the faucet. Remove the used dressing Here are suggestions for removing the dressing: If dressing changes cause you pain, be sure to take your pain medicine as prescribed by your healthcare provider 30 minutes before dressing changes. Set up your supplies. Put on disposable gloves if you re dressing a wound for someone else or your wound is infected. Loosen the tape by pulling gently toward the wound. Gently take off the old dressing. If the dressing is stuck to the wound, moisten it with saline (ifavailable) or clean water. If you have a drain or tube in the wound, be careful not to pull on it. Remove the dressing 1 layer at a time and put it in a plastic bag. Seal the bag and put it in the trash. Remove your gloves. Inspect and dress the wound Check the wound carefully: Each time you change the dressing, check the wound carefully to be sure it s healing normally by making sure your wound appears to be pink and moist, and is free of infection. Wash your hands again. Put on a new pair of gloves. Clean and dress the wound as directed by your healthcare provider or nurse. Don't put anything in the wound that is not prescribed or directed by your healthcare provider. If you have a drain or tube, be careful not to pull on it. Make sure to secure the drain or tube as well. Put all unused supplies in a clean plastic bag. Seal the bag and store it in a clean, dry area between dressing changes. Be sure to wash your hands again. Call your healthcare provider Call your healthcare provider if you see any of the following signs of a problem: Bleeding that soaks the dressing [place] fluid weeping from the wound Increased drainage or drainage that is yellow, yellow-green, or foul-smelling Increased swelling or pain, or redness or swelling in the skin around the wound A change in the color of the wound, or if streaks develop in a direction away from the wound The area between any stitches opens up An increase in the size of the wound A fever of 100.4 F (38 C) or higher, or as directed by your healthcare provider Chills, increased fatigue, or a loss of appetite [id number] [employer]. [address] [place] [address]. All rights reserved. This information is not intended as a substitute for professional medical care. Always follow yourhealthcare professional's instructions. Follow Up Care 06/13/2022 13:17:41 With:[facility] [phone] Address:Unknown When:2-4 days Comments:Address: [address] [place] [id number] With:Go to emergency room if symptoms worsen Address:Unknown When:2-4 days With:SHAUNA BELLO MD Address: [address] [place] [id number]- When:2-4 days [facility] 01-21-2023 Note Discharge Instructions Thank you for allowing [facility] to assist you with your healthcare needs. The following is importantdischarge information regarding your hospital visit. Diagnosis from Today's Visit Abdominal wound Abscess - simple Urinary frequency What to Do Next Instructions from Your Care Team Keep wound covered with dressing. Take doxycycline as prescribed. Follow-up with wound care and your primary care provider. Return emergency department if experience worsening symptoms or any other care concern. No qualifying data available. Post Acute Orders No qualifying data available. You Need to Schedule the Following Appointments Follow Up with Go to emergency room if symptoms worsen When Within 2-4 days Follow Up with SHAUNA BELLO MD When Within 2-4 days Where: [address] [facility] [place] [address]- Allergies Reglan Zoloft Immunizations This Visit Given Vaccine Datetetanus/diphth/pertuss (Tdap) adult/adol 06/13/2022 Medications Please ask your primary doctor or pharmacist before taking any other medication not listed, including over the counter drugs, herbal medications, vitamins and or supplements as they may interact withyour home medications. What How Much When Instructions Last Dose New doxycycline (doxycycline monohydrate 100 mg oral tablet) 1 tab(s) by mouth Two (2) times a day Duration: 7 Days Printed Prescription Please take this list to your next doctor s visit. Bring all medications you take, including over the counter medications, herbals and other supplements with you to your doctor s visit. Patients and families are reminded to discard old lists and to update any records with all medication providers or retail pharmacies. Medication Leaflets doxycycline (oral/injection) (DOX i RALF liriano) Acticlate, Adoxa, Alodox, Avidoxy, Doryx, Mondoxyne NL, Monodox, Morgidox, Okebo, Oracea, Oraxyl, Targadox, Vibramycin What is the most important information I should know about doxycycline? You should not take this medicine if you are allergic to any tetracycline antibiotic. Children younger than 8 years old should use doxycycline only in cases of severe or life-threatening conditions. This medicine can cause permanent yellowing or graying of the teeth in children Using doxycycline during could harm the unborn baby or cause permanent tooth discoloration later in the baby's life. What is doxycycline? Doxycycline is a tetracycline antibiotic that Doxycycline is used to treat many different bacterial infections, such as acne, urinary tract infections, intestinal infections, eye infections, gonorrhea, chlamydia, periodontitis (gum disease), andothers. Doxycycline is also used to treat blemishes, bumps, and acne-like lesions caused by rosacea. Doxycycline will not treat facial redness caused by rosacea. Some forms of doxycycline are used to prevent malaria, to treat anthrax, or to treat infections caused by mites, ticks, or lice. Doxycycline may also be used for purposes not listed in this medication guide. What should I discuss with my healthcare provider before taking doxycycline? You should not take this medicine if you are allergic to doxycycline or other tetracycline antibiotics such as demeclocycline, minocycline, tetracycline, or tigecycline. Tell your doctor if you have ever had: liver disease; kidney disease; asthma or sulfite allergy; increased pressure inside your skull; or if you also take isotretinoin, seizure medicine, or a blood thinner such as warfarin (Coumadin). If you are using doxycycline to treat gonorrhea, your doctor may test you to make sure you do not also have syphilis, another sexually transmitted disease. Taking this medicine during may affect tooth and bone development in the unborn baby. Taking doxycycline during the last half of can cause permanent tooth discoloration later in the baby's life. Tell your doctor if you are or if you become . Doxycycline can make control pills less effective. Ask your doctor about using a non-hormonalbirth control (condom, diaphragm with spermicide) to prevent . Doxycycline can pass into breast milk and may affect bone and tooth development in a nursing . Do not breastfeed while you are taking doxycycline. Doxycycline can cause permanent yellowing or graying of the teeth in children younger than 8 years old. Children should use doxycycline only in cases of severe or life-threatening conditions such as anthrax or [place] spotted fever. The benefit of treating a serious condition may outweigh any risks to the child's tooth development. How should I take doxycycline? Follow all directions on your prescription label and read all medication guides or instruction sheets. Use the medicine exactly as directed. Take doxycycline with a full glass of water. Drink plenty of liquids while you are taking doxycycline. Read and carefully follow any Instructions for Use provided with your medicine. Ask your doctor or pharmacist if you do not understand these instructions. Most brands of doxycyline may be taken with food or milk if the medicine upsets your stomach. Different brands of doxycycline may have different instructions about taking them with or without food. Take Oracea on an empty stomach, at least 1 hour before or 2 hours after a meal. You may need to split a doxycycline tablet to get the correct dose. Follow your doctor's instructions. Swallow a delayed-release capsule or tablet whole. Do not crush, chew, break, or open it. Measure liquid medicine with the dosing syringe provided, or with a special dose-measuring spoon ormedicine cup. If you do not have a dose-measuring device, ask your pharmacist for one. If you take doxycycline to prevent malaria: Start taking the medicine 1 or 2 days before entering an area where malaria is common. Continue taking the medicine every day during your stay and for at least 4 weeks after you leave the area. Doxycycline is usually given by injection only if you are unable to take the medicine by mouth. A healthcare provider will give you this injection as an infusion into a vein. Use this medicine for the full prescribed length of time, even if your symptoms quickly improve. Skipping doses can increase your risk of infection that is resistant to medication. Doxycycline will not treat a viral infection such as the flu or a common cold. Store at room temperature away from moisture, heat, and light. Throw away any unused medicine after the expiration date on the label has passed. Using doxycycline can cause damage to your kidneys. What happens if I miss a dose? Take the medicine as soon as you can, but skip the missed dose if it is almost time for your next dose. Do not take two doses at one time. What happens if I overdose? Seek emergency medical attention or call the Poison Help line at . What should I avoid while taking doxycycline? Do not take iron supplements, multivitamins, calcium supplements, antacids, or laxatives within 2 hours before or after taking doxycycline. Avoid taking any other antibiotics with doxycycline unless your doctor has told you to. Doxycycline could make you sunburn more easily. Avoid sunlight or tanning beds. Wear protective clothing and use sunscreen (SPF 30 or higher) when you are outdoors. Antibiotic medicines can cause diarrhea, which may be a sign of a new infection. If you have diarrhea that is watery or bloody, call your doctor. Do not use anti-diarrhea medicine unless your doctor tells you to. What are the possible side effects of doxycycline? Get emergency medical help if you have signs of an allergic reaction (hives, difficult breathing, swelling in your face or throat) or a severe skin reaction (fever, sore throat, burning in your eyes,skin pain, red or purple skin rash that spreads and causes blistering and peeling). Seek medical treatment if you have a serious drug reaction that can affect many parts of your body.Symptoms may include: skin rash, fever, swollen glands, flu- like symptoms, muscle aches, severe weakness, unusual bruising, or yellowing of your skin or eyes. This reaction may occur several weeks after you began using doxycycline. Call your doctor at once if you have: severe stomach pain, diarrhea that is watery or bloody; throat irritation, trouble swallowing; chest pain, irregular heart rhythm, feeling short of breath; little or no urination; low white blood cell counts--fever, chills, swollen glands, body aches, weakness, pale skin, easy bruising or bleeding; increased pressure inside the skull--severe headaches, ringing in your ears, dizziness, nausea, vision problems, pain behind your eyes; or signs of liver or pancreas problems--loss of appetite, upper stomach pain (that may spread to your back), tiredness, nausea or vomiting, fast heart rate, dark urine, jaundice (yellowing of the skin or eyes). Common side effects may include: nausea, vomiting, upset stomach, loss of appetite; mild diarrhea; skin rash or itching; darkened skin color; or vaginal itching or discharge. This is not a complete list of side effects and others may occur. Call your doctor for medical advice about side effects. You may report side effects to FDA at 1-568-LIK-5611. What other drugs will affect doxycycline? Sometimes it is not safe to use certain medications at the same time. Some drugs can affect your blood levels of other drugs you take, which may increase side effects or make the medications less effective. Other drugs may affect doxycycline, including prescription and bxzq-pbr-ftgbyap medicines, vitamins, and herbal products. Tell your doctor about all your current medicines and any medicine you start or stop using. Where can I get more information? Your pharmacist can provide more information about doxycycline. Remember, keep this and all other medicines out of the reach of children, never share your medicines with others, and use this medication only for the indication prescribed. Every effort has been made to ensure that the information provided by [employer]') is accurate, up-to-date, and complete, but no guarantee is made to that effect. Drug information contained herein may be time sensitive. [employer] information has been compiled for use by healthcare practitioners and consumers in the [place] and therefore [employer] does not warrant that uses outside of the [place] are appropriate, unless specifically indicated otherwise. [employer] drug information does not endorse drugs, diagnose patients or recommend therapy. [employer] drug information isan informational resource designed to assist licensed healthcare practitioners in caring for their p atients and/or to serve consumers viewing this service as a supplement to, and not a substitute for, the expertise, skill, knowledge and judgment of healthcare practitioners. The absence of a warningfor a given drug or drug combination in no way should be construed to indicate that the drug or drug combination is safe, effective or appropriate for any given patient. [employer] does not assume any responsibility for any aspect of healthcare administered with the aid of information [employer] provides. The information contained herein is not intended to cover all possible uses, directions, precautions, warnings, drug interactions, allergic reactions, or adverse effects. If you have questions about the drugs you are taking, check with your doctor, nurse or pharmacist. Copyright 8848-0210 [facility] [employer]. Version: 21.04. Revision Date: 03/27/2020. Education Materials Wound Care Taking proper care of your wound will help it heal. Your healthcare provider may show you how to clean and dress the wound. He or she will also explain how to tell if the wound is healing normally. If you are unsure of how to take care of the wound, be sure to clarify what dressing to use and how often you should change the bandages. Here are the basic steps. A wound that's not healing normally may be dark in color or have white streaks. Wash your hands Tips for washing your hands include: Use liquid soap and lather for 2 minutes. Scrub between your fingers and under your nails. Rinse with warm water, keeping your fingers pointing down. Use a paper towel to dry your hands and to turn off the faucet. Remove the used dressing Here are suggestions for removing the dressing: If dressing changes cause you pain, be sure to take your pain medicine as prescribed by your healthcare provider 30 minutes before dressing changes. Set up your supplies. Put on disposable gloves if you re dressing a wound for someone else or your wound is infected. Loosen the tape by pulling gently toward the wound. Gently take off the old dressing. If the dressing is stuck to the wound, moisten it with saline (ifavailable) or clean water. If you have a drain or tube in the wound, be careful not to pull on it. Remove the dressing 1 layer at a time and put it in a plastic bag. Seal the bag and put it in the trash. Remove your gloves. Inspect and dress the wound Check the wound carefully: Each time you change the dressing, check the wound carefully to be sure it s healing normally by making sure your wound appears to be pink and moist, and is free of infection. Wash your hands again. Put on a new pair of gloves. Clean and dress the wound as directed by your healthcare provider or nurse. Don't put anything in the wound that is not prescribed or directed by your healthcare provider. If you have a drain or tube, be careful not to pull on it. Make sure to secure the drain or tube as well. Put all unused supplies in a clean plastic bag. Seal the bag and store it in a clean, dry area between dressing changes. Be sure to wash your hands again. Call your healthcare provider Call your healthcare provider if you see any of the following signs of a problem: Bleeding that soaks the dressing [place] fluid weeping from the wound Increased drainage or drainage that is yellow, yellow-green, or foul-smelling Increased swelling or pain, or redness or swelling in the skin around the wound A change in the color of the wound, or if streaks develop in a direction away from the wound The area between any stitches opens up An increase in the size of the wound A fever of 100.4 F (38 C) or higher, or as directed by your healthcare provider Chills, increased fatigue, or a loss of appetite [id number] [employer]. [address] [place] [address]. All rights reserved. This information is not intended as a substitute for professional medical care. Always follow yourhealthcare professional's instructions. Additional Information VACCINATE! IT SAVES LIVES! Members of the community who have not yet received the COVID-19 vaccine and would like to receive it can visit one of [facility] vaccine clinics. There are many vaccine clinic locations within the [facility]. For locations and available times, please visit [email or web address]. It is important to note that some COVID mobile vaccine clinics are held outdoors and may be canceled in rainy orstormy conditions. To learn more about pediatric vaccinations (ages 5-11), we invite you to visit the [facility] webpage. [email or web address] learn more about the COVID-19 vaccine, we invite you to visit the [facility] website for a list of frequently asked questions. [email or web address] [facility] Patient Portal Access Instructions: Stay connected with your healthcare team and access your personal medical information anytime with the [facility] Patient Portal. If you would like a full copy of your medical records please contact the [facility] Medical Records Department Wednesday through Wednesday between 8a.m. and 4:30p.m. Please follow the directions below to access the portal: 1.Access the email account you provided upon registration to the [facility].2.Look for an invitation email from [facility].3.Open the email and access the invitation link: Accept Invitation to [facility]4.Fill in the required landaverde to create your account. Sign into www.[employer] with your username and password that you created in the above steps to stay up to date. You can then view a summary of results, a summary of your visits, and the ability to download your summaries to your computer or send the information securely to a physician. Remember that your healthcare information is confidential, so carefully consider who you will allow to register on the [facility] Patient Portal for access to your information. You can also access the [facility] Patient Portal on the [employer]Coin. Simply click on Health Records under [place] and then click on the [facility] logo. HOW TO SAFELY DISPOSE OF PRESCRIPTION MEDICATIONS Please use one of the following methods to safely dispose of your unused medications. 1.Use a drug disposal kit: the drug disposal pouch allows you to safely discard your old and unuseddrugs. Ask your nurse to give you one when you are discharged.2.Visit a local take-back location: Many local pharmacies and police departments have programs that collect old and unwanted prescriptiondrugs. Call your local pharmacy or go to [email or web address]/[email or web address] to find one close to you.3.Make use of household items: Use cat litter or old coffee grounds to dispose medications if other options arenot available. Mix your drugs with these household products, seal them in an airtight container andthrow it into the garbage. Call [facility]: [phone] to be sure your drugs can be disposed of in this way. Some medicines may require a different approach.4.Never flush your medications down the toilet. IF YOU HAVE BEEN PRESCRIBED AN OPIOIDS FOR PAIN If you have been prescribed an opioid (such as hydrocodone, oxycodone or morphine), it is critical to understand the possible side effects and risks of opioid pain medications. Even when taken as directed, opioids can have several side effects including: Tolerance, meaning you might need to take more of a medication for the same pain relief. Nausea, vomiting and/or constipation. Sleepiness, dizziness, dry mouth, confusion, depression or itching. Physical dependence, meaning you have withdrawal symptoms when a medication is stopped ? this can develop within a few days. KNOW YOUR RESPONSIBILITIES It is important to know exactly how much and how often to take the opioid pain medications you are prescribed. Never take opioids in higher amounts or more often than prescribed. Do not combine opioids with alcohol or other drugs that cause drowsiness, such as benzodiazepines, also known as benzos,including diazepam and alprazolam, muscle relaxants or sleep aids. Never sell or share prescriptionopioids. This is illegal. Store opioids in a secure place and out of reach of others (including children, family, friends and visitors). The last page(s) of this document has been signed and retained as a CHART COPY Signatures Patient Education Materials Wound Care Medication Leaflets doxycycline (oral/injection) My discharge plan and instructions have been reviewed and explained to me and IART TAUNYA M understand my current condition and have read and understand these discharge instructions. I have received a written copy of the plan/instructions. If I have questions, I am aware that I should contact my doctor. Patient/[employer] Signature: Date/Time: Relationship to Patient: Witness Name/Signature: Date/Time: [facility]01-21-2023 Evaluation + Plan note Diagnostic Tests Pending * Urine Culture 06/13/22 * Culture Wound Aerobic with Gram Stain 06/13/22 [facility] 12-12-2022 Miscellaneous Notes* Telephone Encounter - Melissa Bingham - 05/04/2022 8:01 AM EST Patient given results and verbalized understanding of instructions given. Melissa Bingham * Telephone Encounter - Bruce Bergeron APRN.CNP - 05/04/2022 7:11 AM EST Please notify that covid/flu testing negative. Continue with plan of care as discussed during visit. [facility] History of Present illness Narrative* Nona Langley APRN.CNP - 05/03/2022 3:29 PM EST CC: Patient presents with: Cough: Chest congestion x 1 day HPI: Anastasia Heller is a 51 year old female who presents to the office with above complaint Symptoms began late yesterday and include: Fever (?100.4F): No or Chills: No Cough: Yes dry and non-productive Shortness of breath: No or Difficulty breathing: No Fatigue: Yes Muscle aches: No Headache: Yes New loss of smell or taste: No Sore throat: No Nasal congestion: No or Rhinorrhea: No Nausea: No or Vomiting: No Diarrhea: No OTC meds/remedies that patient has tried: OTC cold medicine. Exposures: Sick contacts? Yes, grandson tested positive for influenza A Family or close contacts with confirmed/probable COVID-19 in last 14 days? No COVID vaccine: no The ROS is otherwise negative. The patient's pmh, medications, allergies, and past visits are reviewed. PHYSICAL EXAM: BP 146/88 Pulse 78 Temp 37.3 C (99.1 F) Resp 18 Wt (!) 143.3 kg (316 lb) SpO2 97% BMI 62.76 kg/m General appearance: alert, cooperative, pleasant, in no acute distress Head: Normocephalic Eyes: conjunctiva pink and moist, no icterus, sclera white, non-injected Ears: Right ear: External ear/canal- Normal, TM - clear with good landmarks. Left ear: External ear/canal- Normal, TM - clear with good landmarks Nose: clear. Oropharynx:No erythema, exudates or tonsillar hypertrophy. Neck:supple and no adenopathy Heart: Negative. RRR without obvious murmur, gallop, or rubs. No ectopy. Lungs: clear to auscultation, without rales or wheeze, good air exchange ASSESSMENT/PLAN: 1. Acute cough - ICD9: 786.2, ICD10: R05.1 (primary diagnosis) - Meets symptom-based criteria for testing and is high risk. - COVID swab collected at time of office visit - Instructed to isolate pending test results - Discussed symptom monitoring and supportive care - Red flag symptoms requiring follow up discussed - COVID WITH FLUA+B, ROUTINE Patient within timeframe for treatment with Paxlovid or Tamifly, would like to start treatment if indicated pending test results 2. Acute nonintractable headache, unspecified headache type - ICD9: 784.0, ICD10: R51.9 As above - COVID WITH FLUA+B, ROUTINE Prescription instructions reviewed with patient as applicable. Potential red flag symptoms discussed with the patient. Reviewed appropriate action plan to take if red flag symptoms occur. Patient agreeable to treatment plan. Nona Langley APRN.CNP [facility] History of Present illness Narrative* Bruce Bergeron APRN.CNP - 01/27/2022 1:42 PM EDT Subjective HPI HPI Anastasia Heller is a 51 year old female who presents today for CC of ears feel plugged. This started few days ago. Has tried using qtip for relief. Symptoms are worsened by nothing. Denies uri symptoms. Denies hx cerumen impaction. .Patient presents with: Ear Problem: Bilateral ears feel plugged and hurt also heard a popping noise x 1 day PAST MEDICAL HISTORY Diagnosis Date Allergic rhinitis, cause unspecified Calculus of kidney Daytime sleepiness Endometrial hyperplasia, unspecified 05/04/06 Esophageal reflux 03/23/2005 Generalized osteoarthrosis, unspecified site Migraine without aura, without mention of intractable migraine without mention of status migrainosus 03/23/2005 Panic disorder without agoraphobia Sciatica PAST SURGICAL HISTORY Procedure Laterality Date VAGINAL HYSTERECTOMY UTERUS 250 GM/< 05/04/06 Hysterectomy, vaginal with left oophrectomy ALLERGIES Reglan [Metoclopramide Hcl] and Zoloft [Sertraline Hcl] MEDICATIONS ibuprofen (MOTRIN) 800 mg tablet Take 1 tablet by mouth every 8 hours as needed for pain (for headaches). Take with food. Do not take in addition to Naproxen or other NSAID meloxicam (MOBIC) 15 mg tablet Take 1 tablet by mouth once daily. albuterol HFA (VENTOLIN HFA) 90 mcg/actuation inhaler Inhale 2 Puffs as instructed every 4 hours asneeded for wheezing/shortness of breath. (Patient not taking: Reported on 01/27/2022) albuterol (PROVENTIL) 2.5 mg /3 mL (0.083 %) nebulizer solution Use 3 mL via nebulizer one time only for 1 dose. Use over 5-15minutes. omeprazole (PRILOSEC) 20 mg capsule Take 1 capsule by mouth daily before breakfast. 1/2 hr before meal. loratadine (CLARITIN) 10 mg tablet Take 1 tablet by mouth once daily. (Patient not taking: Reportedon 01/21/2021 ) rizatriptan (MAXALT-ENGINEERING DOCUMENTATION SPECIALIST) 10 mg disintegrating tablet Take 1 tablet by mouth as directed. May repeatin 2 hours if needed (Patient not taking: Reported on 01/21/2021 ) fluticasone (FLONASE) 50 mcg/actuation nasal spray Use 2 Sprays in each nostril once daily. Rinse mouth after use. (Patient not taking: Reported on 01/21/2021 ) diphenhydrAMINE (BENADRYL) 25 mg capsule Take 1 capsule by mouth every 6 hours as needed. (Patient not taking: Reported on 01/21/2021 ) benzonatate (TESSALON PERLES) 100 mg capsule Take 1 capsule by mouth three times daily as needed for Cough. (Patient not taking: Reported on 01/02/2019 ) cholecalciferol, Vitamin D3, (VITAMIN D3) 50,000 unit cap capsule Take 1 capsule by mouth once eachweek. (Patient not taking: Reported on 01/21/2021 ) omeprazole (PRILOSEC) 20 mg capsule Take 1 capsule by mouth daily before breakfast. As directed. 1/2 hr before meal. (Patient not taking: Reported on 01/21/2021 ) ketotifen fumarate (ZADITOR) 0.025 % (0.035 %) ophthalmic solution Use 1 Drop in both eyes twice daily. (Patient not taking: Reported on 01/21/2021) COMPOUNDED PRESCRIPTION Humidifier for home use Dx nasal congestion and drainage (Patient not taking: Reported on 01/21/2021 ) promethazine (PHENERGAN) 25 mg tablet Take 1 tablet by mouth every 6 hours as needed for Nausea/Vomiting (associated with migraines). (Patient not taking: Reported on 01/21/2021 ) FAMILY HISTORY Problem Relation Age of Onset Hypertension Mother depression,anxiety Diabetes Mother Hypertension Maternal Grandfather cad, Hypertension Paternal Grandmother other (graves disease [Other]) Son Diabetes Maternal Uncle type 2 Social History Tobacco Use Smoking status: Never Smokeless tobacco: Never Vaping Use Vaping Use: Never used Substance Use Topics Alcohol use: No Drug use: Never ROS Objective Blood pressure 128/82, pulse 64, temperature 36.8 C (98.3 F), temperature source Tympanic, resp. rate 16, weight (!) 141.4 kg (311 lb 12.8 oz), SpO2 97 %. Physical Exam Constitutional: General: She is not in acute distress. Appearance: She is not toxic-appearing or diaphoretic. HENT: Head: Normocephalic and atraumatic. Right Ear: Hearing, tympanic membrane, ear canal and external ear normal. Left Ear: Hearing and external ear normal. Ears: Comments: Initially unable to see left tm dt partial cerumen impaction. Procedure: MA and lavage Successful lavage by nurse. After lavage left ear canal clear and tm normal. Pulmonary: Effort: Pulmonary effort is normal. No accessory muscle usage or respiratory distress. Lymphadenopathy: Cervical: No cervical adenopathy. Right cervical: No superficial cervical adenopathy. Left cervical: No superficial cervical adenopathy. Neurological: Mental Status: She is alert and oriented to person, place, and time. ASSESSMENT/PLAN: 1. Impacted cerumen of left ear - ICD9: 380.4, ICD10: H61.22 Successful lavage by nurse Discussed proper ear hygine Bruce Bergeron APRN.EXTRACT WRINGER [facility] History of Present illness Narrative* Cindy Roa RT(R) - 01/21/2021 5:20 PM EDT Radiology Service Progress Note PATIENT NAME: Anastasia Heller DATE OF SERVICE: January 21, 2021 TIME: 5:25 PM PATIENT IDENTITY VERIFICATION COMPLETED USING TWO (2) IDENTIFIERS: Name and Date of confirmedby patient verbally. FALL SCREENING: Has the patient had 2 falls in the last year or 1 fall with injury or currently using an Ambulatory Assistive Device (Walker, Cane, Wheelchair, Crutches, etc.)? No PATIENT GENDER DATA: Female. status: : No status: NO. PATIENT RELEVANT IMPLANT DATA REVIEWED: Not Applicable RADIOLOGY DEPARTMENT: General X-ray: Exam(s) Completed: Lower Extremity X- Ray(s): Knee, AP / Lat / Tunne / Merchant Left and Wt. Bearing PERIPHERAL IV DATA: Not applicable SIGNED BY: RT Trisha(R) January 21, 2021 5:25 PM [facility]* Diagnosis Impacted cerumen of left ear- Primary Impacted cerumen [facility] Diagnosis Onset Date Resolution Status Cystitis acute Arthritis noneactive History of partial hysterectomy noneactive [facility] Work Phone: Evaluation note* Diagnosis Acute cough- Primary Acute nonintractable headache, unspecified headache type [facility] Diagnosis Encounter for long-term current use of medication- Primary Elevated glucose Other abnormal glucose Vitamin D deficiency Unspecified vitamin D deficiency Elevated triglycerides with high cholesterol Mixed hyperlipidemia [facility]* Diagnosis Primary hypertension- Primary Unspecified essential hypertension Migraine without aura and without status migrainosus, not intractable Migraine without aura, without mention of intractable migraine without mention of status migrainosus Panic disorder without agoraphobia Chronic bronchitis, unspecified chronic bronchitis type (HCC) BMI 60.0-69.9, adult (HCC) Body Mass Index 60.0-69.9, adult Screening mammogram for breast cancer Screening for depression Colon cancer screening Special screening for malignant neoplasms, colon documented in this encounter [facility]* Diagnosis Pain- Primary Generalized pain [facility] Diagnosis Encounter for screening mammogram for breast cancer [facility] Diagnosis Pain Generalized pain [facility]* Diagnosis Acute pain of left knee [facility] this [facility]* Diagnosis Primary hypertension- Primary Unspecified essential hypertension Migraine without aura and without status migrainosus, not intractable Migraine without aura, without mention of intractable migraine without mention of status migrainosus Chronic bronchitis, unspecified chronic bronchitis type ([facility]) Encounter for immunization Need for other specified prophylactic vaccination against single bacterial disease Screening for depression Vitamin D deficiency Unspecified vitamin D deficiency Elevated glucose Other abnormal glucose Elevated triglycerides with high cholesterol Mixed hyperlipidemia Encounter for therapeutic drug monitoring Cardiac murmur Undiagnosed cardiac murmurs Osteoarthritis of multiple joints, unspecified osteoarthritis type documented [facility] this [facility]* Diagnosis B12 deficiency- Primary Other B-complex deficiencies documented [facility] this [facility]* Diagnosis Cold sore- Primary Herpes simplex without mention of complication [facility]* Diagnosis Encounter for screening mammogram for breast cancer [facility] this [facility]* Diagnosis Primary hypertension- Primary Unspecified essential hypertension Panic disorder without agoraphobia Hyperglycemia Other abnormal glucose Vitamin D deficiency Unspecified vitamin D deficiency Cold sore Herpes simplex without mention of complication Elevated hemoglobin A1c Other abnormal blood chemistry Mixed hyperlipidemia B12 deficiency Other B-complex deficiencies Swelling of left foot Dyspnea on exertion Other dyspnea and respiratory abnormality Arthritis of knee, left Unspecified arthropathy, lower leg Class 3 severe obesity due to excess calories with body mass index (BMI) of 60.0 to 69.9 in adult, unspecified whether serious comorbidity present (HCC) documented [facility] this [facility]* Diagnosis Cold sore Herpes simplex without mention of complication [facility] Diagnosis Acute UTI- Primary Urinary tract infection, site not specified Dysuria Urinary frequency Primary hypertension Unspecified essential hypertension Generalized edema Edema Class 3 severe obesity due to excess calories with body mass index (BMI) of 60.0 to 69.9 in adult, unspecified whether serious comorbidity present (HCC) documented in this encounter [facility] note* Diagnosis Primary hypertension- Primary Unspecified essential hypertension Chronic bronchitis, unspecified chronic bronchitis type (HCC) Panic disorder without agoraphobia BMI 60.0-69.9, adult (HCC) Body Mass Index 60.0-69.9, adult documented in this encounter [facility] note* Diagnosis Acute UTI- Primary Urinary tract infection, site not specified [facility] N[facility] No data available for this section [facility] Reason for referral (narrative)* Diagnostic Procedure Only (Urgent) - Closed Specialty Diagnoses / Procedures Referred By Contac t Referred To Contact XR IMAGING Diagnoses Pain Procedures XR RIBS/CHEST 3V AP RIB/OBLS/CXR RIGHT RADEX RIBS UNI W/POSTEROANT CH MINIMUM 3 VIEWS Ilan Trinh APRN.CNP [address] [place] [address] [place] [address] Referral ID Status Reason Start Date Expiration Date V isits Requested Visits Authorized [id number] Closed Auto-Generate d Referral 07/26/2023 08/24/2024 1 1 [facility] for referral (narrative)* Diagnostic Procedure Only (Routine) - Pending Review Specialty Diagnoses / Procedures Referred By Contac t Referred To Contact BR IMAGING Diagnoses Encounter for screening mammogram for breast cancer Procedures PATRICIA SCREENING SCREENING MAMMOGRAPHY BI 2-VIEW BREAST INC CAD Shauna Bello MD [address] [place] [address] [facility] [address] [place] [address] Referral ID Status Reason Start Date Expiration Date Visits Requested Visits Authorized [id number] Pending Review Auto-Generat ed Referral 07/28/2023 08/26/2024 1 1 [facility] for referral (narrative)* Diagnostic Procedure Only (Urgent) - Closed Specialty Diagnoses / Procedures [facility] To Contact [facility] Diagnoses Pain Procedures XR RIBS/CHEST 3V AP RIB/OBLS/CXR RIGHT RADEX RIBS UNI W/POSTEROANT CH MINIMUM 3 VIEWS Ilan Trinh APRN.CNP [address] [place] [address] [place] [address] Referral ID Status Reason Start Date Expiration Date V isits Requested Visits Authorized [id number] Closed Auto-Generate d Referral 07/26/2023 08/24/2024 1 1 [facility] for referral (narrative)* Diagnostic Procedure Only (Urgent) - Closed Specialty Diagnoses / Procedures Referred By Contac t Referred To Contact XR IMAGING Diagnoses Acute pain of left knee Procedures XR KNEE GENERAL 4V AP BOTH/PA BOTH/LAT/MERC LT KNEE AP-WGT/LAT/MERCHANT Ana Bravo PA-C [address] [place] [address] [place] [address] Referral ID Status Reason Start Date Expiration Date V isits Requested Visits Authorized [id number] Closed Auto-Generate d Referral 01/21/2021 02/20/2022 1 1 [facility] for referral (narrative)* Outpatient Procedure (Routine) - Pending Review Specialty Diagnoses / Procedures Referred By Addyac t Referred To Contact [facility] Diagnoses Cardiac murmur Procedures ECHO ECHO TTHRC R-T 2D W/WOM-MODE COMPL SPEC&COLR Sundeep Parham APRN.EXTRACT WRINGER [address] [place] [address] [facility] [place] [address] [place] [address] Referral ID Status Reason Start Date Expiration Date Visits Requested Visits Authorized [id number] Pending Review Auto-Generat ed Referral 04/12/2025 1 1 [facility] for visit Narrative* Diagnostic Procedure Only (Urgent) - Closed Specialty Diagnoses / Procedures Referred By Aamir t Referred To Contact XR IMAGING Diagnoses Pain Procedures XR RIBS/CHEST 3V AP RIB/OBLS/CXR RIGHT RADEX RIBS UNI W/POSTEROANT CH MINIMUM 3 VIEWS Ilan Trinh APRN.EXTRACT WRINGER [address] [place] [address] [place] [address] Referral ID Status Reason Start Date Expiration Date V isits Requested Visits Authorized [id number] Closed Auto-Generate d Referral 07/26/2023 08/24/2024 1 1 [facility] for visit Narrative* Diagnostic Procedure Only (Urgent) - Closed Specialty Diagnoses / Procedures Referred By Contac t Referred To Contact XR IMAGING Diagnoses Acute pain of left knee Procedures XR KNEE GENERAL 4V AP BOTH/PA BOTH/LAT/MERC LT KNEE AP-WGT/LAT/MERCHANT Ana Bravo, PA-C [address] [place] [address] [place] [address] Referral ID Status Reason Start Date Expiration Date V isits Requested Visits Authorized [id number] Closed Auto-Generate d Referral 01/21/2021 02/20/[address] [facility] Chief Complaint and Reason for Visit Chief Complaint CONCERN FOR UTI Reason for Visit Cystitis Arthritis History of partial hysterectomy Chief Complaint CONCERN FOR UTI n/v, headache Reason for Visit Cystitis Arthritis History of partial hysterectomy Advance Directives No Advanced Directives Records Found Advance Directive Response Recorded Date/ Time Living Will No April 28 4:49pm Power of Poultry Buyer No April 28, 2021 4:49pm Advance Directive Response Recorded Date/ Time Living Will No May 10, 022 8:05am Power of Poultry Buyer No May 10, 2022 8:05am Health Concerns Infection Onset Date Last Indicated Resolved Time COVID-19 Rule-Out 05/03/2022 05/03/2022 Summary Purpose Family History No Family History Records Found No data available for this section No Family History Records FoundNo Family History Records FoundNo Family History Records Found Reason for Referral Specialty Diagnoses / Procedures Referred By Aamir moreno Referred To Contact Diagnoses Chronic bronchitis, unspecified chronic bronchitis type (HCC) Sundeep Domínguez APRN.EXTRACT WRINGER [address] [place] [address] Referral ID Status Reason Start Date Expiration Date Visits Re quested Visits Authorized [id number] Closed 1 1 Specialty Diagnoses / Procedures Referred By Aamir moreno Referred To Contact BR IMAGING Diagnoses Screening mammogram for breast cancer Procedures PATRICIA SCREENING W JERICHO SCREENING DIGITAL BREAST TOMOSYNTHESIS BI SCREENING MAMMOGRAPHY BI 2-VIEW BREAST INC CAD Sundeep Domínguez APRN.EXTRACT WRINGER [address] [place] [address] [facility] [address] [place] [address] Referral ID Status Reason Start Date Expiration Date Visits Requested Visits Authorized [id number] Authorized Auto-Generat ed Referral 08/11/2022 09/10/2023 1 1 Additional Source Comments Source Comments (unrecognize d section and content) In the event this informatio n is protected by the Federal Confidentiality of Alcohol and Drug Abuse Patient Records regulations: The Federal rules restrict any use of the information to criminally investigate or prosecute any alcohol or drug abuse patient.[facility] the event this information is protected by the Federal Confidentiality of Alcohol and Drug Abuse Patient Records regulations: The Federal rules restrict any use of the information to criminally investigate or prosecute any alcohol or drug abuse patient.[facility] the event this information is protected by the Federal Confidentiality of Alcohol and Drug Abuse Patient Records regulations: The Federal rules restrict any use of the information to criminally investigate or prosecute any alcohol or drug abuse patient.[facility] the event this information is protected by the Federal Confidentiality of Alcohol and Drug Abuse Patient Records regulations: The Federal rules restrict any use of the information to criminally investigate or prosecute any alcohol or drug abuse patient.[facility] the event this information is protected by the Federal Confidentiality of Alcohol and Drug Abuse Patient Records regulations: The Federal rules restrict any use of the information to criminally investigate or prosecute any alcohol or drug abuse patient.[facility] the event this information is protected by the Federal Confidentiality of Alcohol and Drug Abuse Patient Records regulations: The Federal rules restrict any use of the information to criminally investigate or prosecute any alcohol or drug abuse patient.[facility] the event this information is protected by the Federal Confidentiality of Alcohol and Drug Abuse Patient Records regulations: The Federal rules restrict any use of the information to criminally investigate or prosecute any alcohol or drug abuse patient.[facility] the event this information is protected by the Federal Confidentiality of Alcohol and Drug Abuse Patient Records regulations: The Federal rules restrict any use of the information to criminally investigate or prosecute any alcohol or drug abuse patient.[facility] the event this information is protected by the Federal Confidentiality of Alcohol and Drug Abuse Patient Records regulations: The Federal rules restrict any use of the information to criminally investigate or prosecute any alcohol or drug abuse patient.[facility] the event this information is protected by the Federal Confidentiality of Alcohol and Drug Abuse Patient Records regulations: The Federal rules restrict any use of the information to criminally investigate or prosecute any alcohol or drug abuse patient.[facility] the event this information is protected by the Federal Confidentiality of Alcohol and Drug Abuse Patient Records regulations: The Federal rules restrict any use of the information to criminally investigate or prosecute any alcohol or drug abuse patient.[facility] the event this information is protected by the Federal Confidentiality of Alcohol and Drug Abuse Patient Records regulations: The Federal rules restrict any use of the information to criminally investigate or prosecute any alcohol or drug abuse patient.[facility] the event this information is protected by the Federal Confidentiality of Alcohol and Drug Abuse Patient Records regulations: The Federal rules restrict any use of the information to criminally investigate or prosecute any alcohol or drug abuse patient.[facility] the event this information is protected by the Federal Confidentiality of Alcohol and Drug Abuse Patient Records regulations: The Federal rules restrict any use of the information to criminally investigate or prosecute any alcohol or drug abuse patient.[facility] the event this information is protected by the Federal Confidentiality of Alcohol and Drug Abuse Patient Records regulations: The Federal rules restrict any use of the information to criminally investigate or prosecute any alcohol or drug abuse patient.[facility] the event this information is protected by the Federal Confidentiality of Alcohol and Drug Abuse Patient Records regulations: The Federal rules restrict any use of the information to criminally investigate or prosecute any alcohol or drug abuse patient.[facility] the event this information is protected by the Federal Confidentiality of Alcohol and Drug Abuse Patient Records regulations: The Federal rules restrict any use of the information to criminally investigate or prosecute any alcohol or drug abuse patient.[facility] the event this information is protected by the Federal Confidentiality of Alcohol and Drug Abuse Patient Records regulations: The Federal rules restrict any use of the information to criminally investigate or prosecute any alcohol or drug abuse patient.[facility] the event this information is protected by the Federal Confidentiality of Alcohol and Drug Abuse Patient Records regulations: The Federal rules restrict any use of the information to criminally investigate or prosecute any alcohol or drug abuse patient.[facility] the event this information is protected by the Federal Confidentiality of Alcohol and Drug Abuse Patient Records regulations: The Federal rules restrict any use of the information to criminally investigate or prosecute any alcohol or drug abuse patient.[facility] the event this information is protected by the Federal Confidentiality of Alcohol and Drug Abuse Patient Records regulations: The Federal rules restrict any use of the information to criminally investigate or prosecute any alcohol or drug abuse patient.[facility] the event this information is protected by the Federal Confidentiality of Alcohol and Drug Abuse Patient Records regulations: The Federal rules restrict any use of the information to criminally investigate or prosecute any alcohol or drug abuse patient.[facility] the event this information is protected by the Federal Confidentiality of Alcohol and Drug Abuse Patient Records regulations: The Federal rules restrict any use of the information to criminally investigate or prosecute any alcohol or drug abuse patient.[facility] Reason for Visit (unrecogniz ed section and content) Reason Comments Ear Problem Bilateral ears feel plugged and hurt also heard a popping noise x 1 day Reason Comments Cough Chest congestion x 1 day Reason Comments Results Reason Comments Orders Reason Comments copy of letter Reason Comments Physical Reason Comments pain under right breast X 2 days Reason Comments Letter Reason Comments Letter Shortness of Breath Headache states are coming ba ck Reason Comments Patient Question Reason Comments Follow Up Reason Onset Date Comments Refill Request 09/02/2024 Reason Comments F/U 3 Month Urinary Frequency on going for about 3 days Care Teams (unrecognized sec tion and content) Chinese Teacher Relationship Specialty Start Date End Date Shauna Bello MD [address] [place] [address] PCP - General 12/04/03 Chinese Teacher Relationship Specialty Start Date End Date Shauna Bello MD [address] [facility] [place] [address] PCP - General 12/04/03 Chinese Teacher Relationship Specialty [place] [address] [address] [place] [address] PCP - General 12/04/03 Chinese Teacher Relationship Specialty Start Date End Date Shauna Bello MD [address] [place] [address] [place] [address] PCP - General 12/04/03 Chinese Teacher Relationship Specialty Start Date End Date Shauna Bello MD [address] [facility] [place] [address] PCP - General 12/04/03 Chinese Teacher Relationship Specialty Start Date End Date Shauna Bello MD [address] [facility] [place] [address] PCP - General 12/04/03 Chinese Teacher Relationship Specialty Start Date End Date Shauna Bello MD [address] [facility] [place] [address] PCP - General 12/04/03 Chinese Teacher Relationship Specialty [place] [address] [address] [place] [address] PCP - General 12/04/03 Chinese Teacher Relationship Specialty Start Date End Date Shauna Bello MD [address] [facility] [place] [address] PCP - General 12/04/03 Chinese Teacher Relationship Specialty Start Date End Date Shauna Bello MD [address] [place] [place] [address] PCP - General 12/04/03 Chinese Teacher Relationship Specialty Start Date End Date Shauna Bello MD [address] [place] [place] [address] PCP - General 12/04/03 Chinese Teacher Relationship Specialty Start Date End Date Shauna Bello MD [address] [place] [address] PCP - General 12/04/03 Chinese Teacher Relationship Specialty Start Date End Date Shauna Bello MD [address] [place] [place] [address] PCP - General 12/04/03 Chinese Teacher Relationship Specialty Start Date End Date Shauna Bello MD [address] [place] [place] [address] PCP - General 12/04/03 Chinese Teacher Relationship Specialty Start Date End Date Shauna Bello MD [address] [place] [place] [address] PCP - General 12/04/03 Rhiannon Latham, NANNY BABYSITTER.FOOD CART ATTENDANT [address] [place] [place] [address] [facility] 05/01/24 Sundeep Domínguez NANNY BABYSITTER.EXTRACT WRINGER [address] [facility] [place] [address] [facility] 05/01/24 Chinese Teacher Relationship Specialty Start Date End Date Shauna Bello MD [address] [facility] [place] [address] PCP - General 12/04/03 Rhiannon Latham, NANNY BABYSITTER.FOOD CART ATTENDANT [address] [place] [place] [address] [facility] 05/01/24 Sundeep Domínguez APRN.EXTRACT WRINGER [address] [facility] [place] [address] [facility] 05/01/24 Chinese Teacher Relationship Specialty Start Date End Date Shauna Bello MD [address] [place] [place] [address] PCP - General 12/04/03 Rhiannon Latham, NANNY BABYSITTER.FOOD CART ATTENDANT [address] [place] [place] [address] [facility] 05/01/24 Sundeep Domínguez APRN.EXTRACT WRINGER [address] [place] [place] [address] [facility] 05/01/24 Chinese Teacher Relationship Specialty Start Date End Date Shauna Bello MD [address] [place] [place] [address] PCP - General 12/04/03 Rhiannon Latham, NANNY BABYSITTER.FOOD CART ATTENDANT [address] [place] [place] [address] [facility] 05/01/24 Sundeep Domínguez APRN.EXTRACT WRINGER [address] [facility] [place] [address] [facility] 08/15/24 Chinese Teacher Relationship Specialty Start Date End Date Shauna Bello MD [address] [place] [place] [address] PCP - General 12/04/03 Sundeep Domínguez APRN.EXTRACT WRINGER [address] [facility] [place] [address] [facility] 08/15/24 Rhiannon Latham, NANNY BABYSITTER.FOOD CART ATTENDANT [address] [place] [address] [facility] 10/11/24 Chinese Teacher Relationship Specialty Start Date End Date Shauna Bello MD [address] [place] [address] PCP - General 12/04/03 Sundeep Domínguez NANNY BABYSITTER.EXTRACT WRINGER [address] [place] [place] [address] [facility] 08/15/24 Rhiannon Latham, NANNY BABYSITTER.FOOD CART ATTENDANT [address] [place] [place] [address] [facility] 10/11/24 Chinese Teacher Relationship Specialty Start Date End Date Shauna Bello MD [address] [place] [address] PCP - General 12/04/03 Sundeep Domínguez, NANNY BABYSITTER.EXTRACT WRINGER [address] [place] [address] [facility] 08/15/24 Rhiannon Latham, NANNY BABYSITTER.FOOD CART ATTENDANT [address] [place] [address] [facility] 10/11/24 Chinese Teacher Relationship Specialty Start Date End Date Shauna Bello MD [address] [place] [address] PCP - General 12/04/03 Sundeep Domínguez, NANNY BABYSITTER.EXTRACT WRINGER [address] [place] [address] [facility] 08/15/24 Rhiannon Latham, NANNY BABYSITTER.FOOD CART ATTENDANT [address] [place], [place] [id number] [facility] 10/11/24 Goals (unrecognized section and content) Goals may be documented in a n alternate sectionGoals may be documented in an alternate section No data available for this section No data available for this section Care Team (unrecognized sect ion and content) Care Team Personnel Name: SHAUNA BELLO MD Member Role: Primary Care Physician Address: Address: [address] [place] [address]- Name: SAIMA DYKES DO Position: ED Physician Member Role: Attending Physician Address: Address: [address] [place] [address]- INFORMATION SOURCE (unrecogn ized section and content) DATE CREATED AUTHOR 06/27/2022 [facility] ([place]) DATE CREATED AUTHOR AUTHOR'S ORGANIZ ATION 02/21/[address] [facility] DATE CREATED AUTHOR AUTHOR'S ORGANIZ ATION 06/30/2024 [facility] DATE CREATED AUTHOR AUTHOR'S SUZI MCKEON 04/03/2025 [facility] FOR RECORDS PERTAINING TO PATIENTS WHO ARE OR HAVE BEEN ENROLLED IN A CHEMICAL DEPENDENCY/SUBSTANCEABUSE PROGRAM, SOME INFORMATION MAY BE OMITTED. This clinical summary was aggregated from multiple sources. Caution should be exercised in using it in the provision of clinical care. This summary normalizes information from multiple sources, and as a consequence, information in this document may materially change the coding, format and clinical context of patient data. In addition, data may be omitted in some cases. CLINICAL DECISIONS SHOULD BE BASED ON THE PRIMARY CLINICAL RECORDS. [facility] [employer] [facility]. provides no warranty or guarantee of the accuracy or completeness of information in this document.
== END 2025-04-20 16:33 | disposition home or self-care (01) ==
LOC: ED 16:25
PROVIDERS: Emergency Provider Emergency Medicine; PCP Internal Medicine; Visit Provider Emergency Medicine
DX: T23.272D Burn of second degree of left wrist, subsequent encounter (principal); X12.XXXD Contact with other hot fluids, subsequent encounter
CPT/HCPCS: 99282